=== PATIENT | female | born 1985 | race Two or more races ===

== ENCOUNTER → 2018-02-02 | Outpatient (CLI) | payer MEDICAID | END | disposition home or self-care (01) | LOC: Rad HDHVI 08:01 | PROVIDERS: ATTEND Internal Medicine | DX: R06.02 Shortness of breath (principal); R63.8 Other symptoms and signs concerning food and fluid intake | CPT/HCPCS: 93306 ==

== ENCOUNTER → 2018-03-23 | Outpatient (CLI) | payer MEDICAID ==
[~2018-03-23] VITALS: Ht 157.5 cm; Wt 120.2 kg
== END | disposition home or self-care (01) ==
LOC: Rad HDHVI 14:22
PROVIDERS: ATTEND Internal Medicine
DX: I10 Essential (primary) hypertension (principal); R63.8 Other symptoms and signs concerning food and fluid intake; R06.02 Shortness of breath
CPT/HCPCS: 78452; 93017; 96374; A9500

== ENCOUNTER 2021-01-15 09:10 | Emergency (ER) | payer BC, MEDICAID, OTHER ==
[~2021-01-15] VITALS: Ht 157.5 cm; Wt 122.5 kg
[2021-01-15 10:10] LABS: Basophils # (auto) 0.1 10 ^3/uL (0-0.2); Basophils % (auto) 0.9 % (0.0-2.0); Eosinophils # (auto) 0 10 ^3/uL (0-0.8); Eosinophils % (auto) 0.5 % (0.0-7.0); Hematocrit 40.5 % (36.0-46.0); Hemoglobin 13.6 g/dL (12.2-16.2); Lymphocytes # (auto) 2.6 10 ^3/uL (0.4-5.4); Lymphocytes % (auto) 29.9 % (10.0-50.0); Mean Corpuscular Hemoglobin 30.2 pg (28.0-32.0); Mean Corpuscular Hgb Conc. 33.5 g/dL (32.0-36.0); Monocytes # (auto) 0.6 10 ^3/uL (0-1.3); Monocytes % (auto) 7.3 % (0.0-12.0); Neutrophils # (auto) 5.4 10 ^3/uL (1.6-8.6); Neutrophils % (auto) 61.4 % (37.0-80.0); Nucleated Red Blood Cells % 0.1 %; Red Cell Distribution Width 15.3 % (11.8-14.3); White Blood Cell 8.8 10^3/uL (4.4-10.8)
[2021-01-15 10:27] LABS: Albumin 3.1 g/dL (3.4-5.0); Anion Gap 5 (5-15); Blood Urea Nitrogen 15 mg/dL (7-18); Calcium 8.9 mg/dL (8.5-10.1); Carbon Dioxide 25 mmol/L (21-32); Chloride 111 mmol/L (98-107); Glucose 99 mg/dL (74-106); Potassium 4.5 mmol/L (3.5-5.1); Sodium 141 mmol/L (136-145)
[2021-01-15 10:28] LABS: Urine Bacteria NONE SEEN /hpf (None Seen); Urine Blood Negative /uL (Negative); Urine Specific Gravity 1.023 (1.001-1.035); Urine WBC 1 /hpf (0 - 5)
[2021-01-15 10:33] LABS: Alanine Aminotransferase 27 U/L (13-56); Alkaline Phosphatase 70 U/L (45-117); Aspartate Aminotransferase 13 U/L (15-37); BUN/Creatinine Ratio 15.8; Bilirubin, Total 0.2 mg/dL (0.2-1.0); GFR African American 87 mL/min; GFR Non-African American 72 mL/min
[2021-01-15 11:42] VITALS: BP 138/92
== END 2021-01-15 11:47 | disposition home or self-care (01) ==
LOC: ER 09:10
DX: E03.9 Hypothyroidism, unspecified (principal); F41.9 Anxiety disorder, unspecified; R00.2 Palpitations
CPT/HCPCS: 36415; 71045; 80053; 81001; 84443; 84484; 85025; 93005

== ENCOUNTER 2025-03-10 08:17 | Inpatient (IN) | payer BC ==
[~2025-03-10] VITALS: Ht 157.5 cm; Wt 150.5 kg
--- NOTE | 2025-03-10 08:46 | ED.PDOC ---
GI ASSESSMENT HPI Comments This is a 40 year old female presenting to the ED with chief complaint of abdominal pain. Patient reports that she has been experiencing 4/10 LLQ abdominal pain since this morning. Patient reports that she has been on Zepbound. Patient denies any N/V/D, dizziness, fever, chills, dysuria, hematuria, or flank pain. Chief Complaint: Abdominal Pain Time Seen by MD: 08:45 Reviewed Notes: Nurses Notes, Medications, Allergies Allergies: Coded Allergies: NO KNOWN ALLERGIES (Unverified , 01/15/21) Information Source: Patient Mode of Arrival: Ambulatory Timing: Hours Duration: Since onset Prehospital treatment: None Quality: Sharp Vomitus: None Stool: Normal Severity: Moderate Recent: None Recent Hx of: None Pain Location: LLQ Modifying Factors: Nothing Associated sign and symptoms: Abdominal Pain Past Medical History PAST MEDICAL HISTORY: Thyroid Surgical History: BTL, Cholecystectomy, FURNITURE RENTAL CONSULTANT History: No Pertinent FURNITURE RENTAL CONSULTANT History Family History Family History: Reviewed,noncontributory to illness Social History Smoker: Non-Smoker Alcohol: Denies ETOH Use Drugs: Denies Drug Use Lives In: Home Constitutional: denies: chills, diaphoresis, fatigue, fever, malaise, sweats, weakness, others EENTM: denies: blurred vision, double vision, ear bleeding, ear discharge, ear drainage, ear pain, ear ringing, eye pain, eye redness, hearing loss, mouth pain, mouth swelling, nasal discharge, nose bleeding, nose congestion, nose pain, photophobia, tearing, throat pain, throat swelling, voice changes, others Respiratory: denies: cough, hemoptysis, orthopnea, SOB at rest, shortness of breath, SOB with excertion, stridor, wheezing, others Cardiovascular: denies: chest pain, dizzy spells, diaphoresis, Dyspnea on exertion, edema, irregular heart beat, left arm pain, lightheadedness, palpitations, PND, syncope, others Gastrointestinal: reports: abdominal pain; denies: abdomen distended, blood streaked bowels, constipated, diarrhea, dysphagia, difficulty swallowing, hematemesis, melena, nausea, poor appetite, poor fluid intake, rectal bleeding, rectal pain, vomiting, others Genitourinary: denies: abnormal vagina bleeding, burning, dyspareunia, dysuria, flank pain, frequency, hematuria, incontinence, pain, , vagina discharge, urgency, others Neurological: denies: dizziness, fainting, headache, left sided numbness, left sided weakness, numbness, paresthesia, pre-existing deficit, right sided numbness, right sided weakness, seizure, speech problems, tingling, tremors, weakness, others Musculoskeletal: denies: back pain, gout, joint pain, joint swelling, muscle pain, muscle stiffness, neck pain, others Integumetry: denies: bruises, change in color, change in hair/nails, dryness, laceration, lesions, lumps, rash, wounds, others Allergic/Immunocompromised: denies: Difficulty Healing, Frequent Infections, Hives, Itching, others Hematologic/Lymphatic: denies: anemia, blood clots, easy bleeding, easy bruising, swollen glands, others Endocrine: denies: excessive hunger, excessive sweating, excessive thirst, excessive urination, flushing, intolerance to cold, intolerance to heat, unexplained weight gain, unexplained weight loss, others Psychiatric: denies: anxiety, bipolar disorder, depression, hopeless, panic disorder, schizophrenia, sleepless, suicidal, others All Other Systems: Reviewed and Negative Physical Exam General Appearance: Moderate Distress HEENT: Normal ENT Inspection, Pharynx Normal, TMs Normal Neck: Full Range of Motion, Non-Tender, Normal, Normal Inspection Respiratory: Chest Non-Tender, Lungs Clear, No Accessory Muscle Use, No Respiratory Distress, Normal Breath Sounds Cardiovascular: No Edema, No JVD, No Murmur, No Gallop, Normal Peripheral Pulses, Regular Rate/Rhythm Breast Exam: Deferred Gastrointestinal: LLQ, No Organomegaly, No Pulsatile Mass, Normal Bowel Sounds, Soft, Tenderness Genitalia: Deferred Pelvic: Deferred Rectal: Deferred Extremities: No calf tenderness, Normal capillary refill, No pedal edema Musculoskeletal : Apperance: Normal Neurologic: Alert, spring encaser II-XII nml as Tested, Motor Weakness, Normal Affect, Normal Mood, No Sensory Deficits Cerebellar Function: Normal Reflexes: Normal Skin: Dry, Normal Color, Warm Lymphatic: No Adenopathy Was a procedure done? Was a procedure done?: No GI differential Dx Differential Diagnosis: Diverticular disease, Gastritis/PUD, Gastroenteritis, Electrolyte Imbalance, Food Poisoning X-Ray, Labs, Meds, VS Vital Signs Date Time Temp Pulse Resp B/P (MAP) Pulse Ox O2 Delivery O2 Flow Rate FiO2 03/10/25 08:19 98.4 112 18 140/102 98 98.4 Lab Test 03/10/25 11:06 03/10/25 08:54 Range/Units Urine Color Light-yellow Yellow Urine Clarity Clear Clear Urine pH 6.0 5.0-9.0 Urine Specific [place] 1.011 1.001-1.035 Urine Protein Negative Negative Urine Ketones Negative Negative Urine Blood Negative Negative /uL Urine Nitrite Negative Negative Urine Bilirubin Negative Negative Urine Urobilinogen Normal Negative mg/dL Urine Leukocyte Esterase Negative Negative /uL Urine RBC 1 0 - 4 /hpf Urine Microscopic WBC 1 0-5 /HPF Urine Squamous Epithelial Cells Few <5 /hpf Urine Bacteria Few H None Seen /hpf Urine Glucose Normal Normal mg/dL Urine Test Negative Negative White Blood Count 11.3 H 4.4-10.8 10^3/uL Red Blood Count 4.94 4.0-5.20 10^6/uL Hemoglobin 14.2 12.2-16.2 g/dL Hematocrit 43.2 36.0-46.0 % Mean Corpuscular Volume 87.4 80.0-100.0 fL Mean Corpuscular Hemoglobin 28.6 28.0-32.0 pg Mean Corpuscular Hemoglobin Concent 32.8 32.0-36.0 g/dL Red Cell Distribution Width 15.3 H 11.8-14.3 % Platelet Count 378 140-450 10^3/uL Mean Platelet Volume 8.3 6.9-10.8 fL Neutrophils (%) (Auto) 70.8 37.0-80.0 % Lymphocytes (%) (Auto) 21.2 10.0-50.0 % Monocytes (%) (Auto) 6.5 0.0-12.0 % Eosinophils (%) (Auto) 0.6 0.0-7.0 % Basophils (%) (Auto) 0.9 0.0-2.0 % Neutrophils # (Auto) 8.0 1.6-8.6 10 ^3/uL Lymphocytes # (Auto) 2.4 0.4-5.4 10 ^3/uL Monocytes # (Auto) 0.7 0-1.3 10 ^3/uL Eosinophils # (Auto) 0.1 0-0.8 10 ^3/uL Basophils # (Auto) 0.1 0-0.2 10 ^3/uL Nucleated Red Blood Cells 0.0 % Sodium Level 140 136-145 mmol/L Potassium Level 4.0 3.5-5.1 mmol/L Chloride Level 105 98-107 mmol/L Carbon Dioxide Level 27 20-31 mmol/L Anion Gap 8 5-15 Blood Urea Nitrogen 9 9-23 mg/dL Creatinine 0.95 0.550-1.02 mg/dL Glomerular Filtration Rate Calc 79 >90 mL/min BUN/Creatinine Ratio 9.5 L 10.0-20.0 Serum Glucose 102 74-106 mg/dL Calcium Level 8.9 8.7-10.4 mg/dL IV Hep-Lock was established Cat scan of the abdomen and pelvis shows: IMPRESSION: Limited evaluation without contrast. Diverticulitis of the distal descending colon. Hepatic steatosis, hepatomegaly. Nonobstructing left renal calculus. The patient was given Flagyl 500 mg IV piggyback The patient's CBC shows an elevated white blood cell count of 11.3 consistent with the acute diverticulitis The test is negative The urine test is negative creatinine infections The chemistry panel is within normal limits. The patient is being admitted at this time. Images Reviewed?: Images reviewed and evaluated by me Time of 1ST Reevaluation: 13:27 Reevaluation 1ST: Unchanged Patient Education/Counseling: Diagnosis, Treatment, Prognosis Family Education/Counseling: No Family Present SEPSIS Sepsis Screen Date sepsis recognized/suspect: Mar 10, 2025 Time Sepsis recognized/suspect: 821 Recent Procedure: No On Antibiotic Therapy: No Respiratory Rate >20: No Heart Rate >90: No Temp<36 C (96.8 F) or >38.3 C: No SBP <90 or MAP <65 mmHG: No New Acute Mental Status Change: No Is the patient on CPAP, BIPAP,: No Physician Orders Ct Ab Pel Wo Con-No Oral Or Iv (03/10/25 08:44) Metronidazole 500mg/100ml (Flagyl 500mg/ (03/10/25 13:15) Vital Signs Date Time Temp Pulse Resp B/P (MAP) Pulse Ox O2 Delivery O2 Flow Rate FiO2 03/10/25 08:19 98.4 112 18 140/102 98 98.4 Laboratory Tests Test 03/10/25 08:54 White Blood Count 11.3 10^3/uL (4.4-10.8) H Departure 1 Departure Time of Disposition: 13:27 Impression: Primary Impression: Intractable abdominal pain Additional Impression: Acute diverticulitis Disposition: ADMITTED INPATIENT Admit to: Med Surg Condition: Fair Critical Care Note Critical Care Time?: No Stability Stability form required: Yes Unstable for transfer: ED Physician Assesment (Clinical assesment) Heart Score Heart Score: Heart Score Response (Comments) Value History N/A 0 EKG N/A 0 Age N/A 0 Risk Factors N/A 0 Troponin N/A 0 Total 0 I personally scribed for CARLOS GALLEGO MD ([email or web address]) on 03/10/25 at 08:46. Electronically submitted by Shoaib Bettencourt ([email or web address]). CARLOS GALLEGO MD Mar 10, 2025 08:46
[2025-03-10 09:11] LABS: Hematocrit 43.2 % (36.0-46.0); Hemoglobin 14.2 g/dL (12.2-16.2); Mean Corpuscular Hemoglobin 28.6 pg (28.0-32.0); Mean Corpuscular Volume 87.4 fL (80.0-100.0); Nucleated Red Blood Cells % 0.0 %
[2025-03-10 09:17] LABS: Chloride 105 mmol/L (98-107); Potassium 4.0 mmol/L (3.5-5.1); Sodium 140 mmol/L (136-145)
[2025-03-10 09:18] LABS: Anion Gap 8 (5-15); Calcium 8.9 mg/dL (8.7-10.4); Carbon Dioxide 27 mmol/L (20-31)
[2025-03-10 09:23] LABS: BUN/Creatinine Ratio 9.5 (10.0-20.0); Blood Urea Nitrogen 9 mg/dL (9-23); Glucose 102 mg/dL (74-106)
[2025-03-10 11:42] LABS: Urine Protein, UAD Negative (Negative)
--- NOTE | 2025-03-10 12:23 | DVH ---
Indication: llq pain Technique: CT axial images of the abdomen and pelvis are obtained without contrast. Coronal and sagittal reformats were obtained. Radiation Dose Information: CTDI volume is 27 mGy. Dose-length product is 1626 mGy*cm Comparison: None FINDINGS: There is limited interpretation of the abdomen and pelvis without administration of intravenous contrast. Lung bases demonstrate atelectasis. No pleural effusion. Adrenal glands, spleen, pancreas unremarkable in shape. Hepatic steatosis. Hepatomegaly. Cholecystectomy. No hydronephrosis. Nonobstructing left renal calculus measuring 2 mm. Stomach partially distended. Small bowel loops are normal in caliber. Colonic diverticular disease. Bowel wall thickening with surrounding inflammatory stranding involving the distal descending colon. Normal appendix. Bladder partially distended. No free pelvic fluid. No inguinal lymphadenopathy. No aggressive osseous process. Moderate lumbar degenerative disc disease at L4-5 and L5-S1. Moderate lumbar facet hypertrophic changes IMPRESSION: Limited evaluation without contrast. Diverticulitis of the distal descending colon. Hepatic steatosis, hepatomegaly. Nonobstructing left renal calculus. Other findings as described.
[2025-03-10] MEDS: PANTOPRAZOLE 40 MG TAB PO ONE (14:15)
[2025-03-10] MEDS ORDERED: ONDANSETRON HCL 4 MG/2 ML VIAL IV PRN (14:15)
[2025-03-10] MEDS: KETOROLAC TROMETH 30 MG/ML 1ML VIAL IV PRN (16:59)
--- NOTE | 2025-03-10 17:03 | DVHHP2 ---
History of Present Illness Reason for Visit: Abdominal pain History of Present Illness 40-year-old female presents for evaluation of abdominal pain. Patient presents with a one day history of sharp left lower quadrant nonradiating abdominal pain with associated nausea. No vomiting. Denies fever or chills. No diarrhea. Past Medical History Hypothyroid Past Surgical History Cholecystectomy, Family History Noncontributory Smoke: No ALCOHOL: none Drugs: None Lives: with Family Review of Systems Review of Systems Review of systems are currently negative otherwise addressed in HPI. Allergies: Coded Allergies: NO KNOWN ALLERGIES (Unverified , 01/15/21) Medications Current Medications Medications Dose Ordered Sig/Hao Route Start Time Stop Time Status Last Admin Dose Admin Ceftriaxone Sodium 50 ml @ 100 mls/hr DAILY@09 IV 03/11/25 09:00 Pantoprazole Sodium 40 mg DAILY@0600 PO 03/11/25 06:00 Ketorolac Tromethamine 15 mg Q6HPRN PRN IV 03/10/25 14:15 03/15/25 14:14 Acetaminophen/ Hydrocodone Bitart 1 tab Q4HP PRN PO 03/10/25 14:15 Ondansetron HCl 4 mg Q4HP PRN IV 03/10/25 14:15 Acetaminophen 650 mg Q6HP PRN PO 03/10/25 14:15 Exam Vital Signs Vital Signs Date Time Temp Pulse Resp B/P (MAP) Pulse Ox O2 Delivery O2 Flow Rate FiO2 03/10/25 14:02 119 03/10/25 14:02 18 144/94 (111) 99 03/10/25 08:19 98.4 98.4 Exam Gen: 40-year-old female in mild distress Skin: Warm, dry, normal color and texture, no rash. HEENT: Normocephalic atraumatic, mucous membranes moist and pink. Neck: Cervical and supraclavicular nodes normal without enlargement, trachea is midline, thyroid gland is normal without masses. Pulmonary: Clear to auscultation and percussion bilaterally. Cardiac: Regular rate and rhythm. No murmur Abdomen: Soft, left lower quadrant tenderness, nondistended, bowel sounds present all 4 quadrants, no guarding, no rigidity, no organomegaly. Extremities: No cyanosis, clubbing, no edema Neuro: Cranial nerves II through XII grossly intact, normal affect and speech, no focal motor deficits. Labs/Xrays ORDERING PHYSICIAN: CARLOS GALLEGO MD PROCEDURE(s): ABPL - CT AB PEL WO CON-NO ORAL OR IV REASON: llq pain ORDER NUMBER(s): [id number], ACCESSION NUMBER(s): [id number] Indication: llq pain Technique: CT axial images of the abdomen and pelvis are obtained without contrast. Coronal and sagittal reformats were obtained. Radiation Dose Information: CTDI volume is 27 mGy. Dose-length product is 1626 mGy*cm Comparison: None FINDINGS: There is limited interpretation of the abdomen and pelvis without administration of intravenous contrast. Lung bases demonstrate atelectasis. No pleural effusion. Adrenal glands, spleen, pancreas unremarkable in shape. Hepatic steatosis. Hepatomegaly. Cholecystectomy. No hydronephrosis. Nonobstructing left renal calculus measuring 2 mm. Stomach partially distended. Small bowel loops are normal in caliber. Colonic diverticular disease. Bowel wall thickening with surrounding inflammatory stranding involving the distal descending colon. Normal appendix. Bladder partially distended. No free pelvic fluid. No inguinal lymphadenopathy. No aggressive osseous process. Moderate lumbar degenerative disc disease at L4-5 and L5-S1. Moderate lumbar facet hypertrophic changes IMPRESSION: Limited evaluation without contrast. Diverticulitis of the distal descending colon. Hepatic steatosis, hepatomegaly. Nonobstructing left renal calculus. Other findings as described. Labs Test 03/10/25 11:06 03/10/25 08:54 Range/Units Urine Color Light-yellow Yellow Urine Clarity Clear Clear Urine pH 6.0 5.0-9.0 Urine Specific [place] 1.011 1.001-1.035 Urine Protein Negative Negative Urine Ketones Negative Negative Urine Blood Negative Negative /uL Urine Nitrite Negative Negative Urine Bilirubin Negative Negative Urine Urobilinogen Normal Negative mg/dL Urine Leukocyte Esterase Negative Negative /uL Urine RBC 1 0 - 4 /hpf Urine Microscopic WBC 1 0-5 /HPF Urine Squamous Epithelial Cells Few <5 /hpf Urine Bacteria Few H None Seen /hpf Urine Glucose Normal Normal mg/dL Urine Test Negative Negative White Blood Count 11.3 H 4.4-10.8 10^3/uL Red Blood Count 4.94 4.0-5.20 10^6/uL Hemoglobin 14.2 12.2-16.2 g/dL Hematocrit 43.2 36.0-46.0 % Mean Corpuscular Volume 87.4 80.0-100.0 fL Mean Corpuscular Hemoglobin 28.6 28.0-32.0 pg Mean Corpuscular Hemoglobin Concent 32.8 32.0-36.0 g/dL Red Cell Distribution Width 15.3 H 11.8-14.3 % Platelet Count 378 140-450 10^3/uL Mean Platelet Volume 8.3 6.9-10.8 fL Neutrophils (%) (Auto) 70.8 37.0-80.0 % Lymphocytes (%) (Auto) 21.2 10.0-50.0 % Monocytes (%) (Auto) 6.5 0.0-12.0 % Eosinophils (%) (Auto) 0.6 0.0-7.0 % Basophils (%) (Auto) 0.9 0.0-2.0 % Neutrophils # (Auto) 8.0 1.6-8.6 10 ^3/uL Lymphocytes # (Auto) 2.4 0.4-5.4 10 ^3/uL Monocytes # (Auto) 0.7 0-1.3 10 ^3/uL Eosinophils # (Auto) 0.1 0-0.8 10 ^3/uL Basophils # (Auto) 0.1 0-0.2 10 ^3/uL Nucleated Red Blood Cells 0.0 % Sodium Level 140 136-145 mmol/L Potassium Level 4.0 3.5-5.1 mmol/L Chloride Level 105 98-107 mmol/L Carbon Dioxide Level 27 20-31 mmol/L Anion Gap 8 5-15 Blood Urea Nitrogen 9 9-23 mg/dL Creatinine 0.95 0.550-1.02 mg/dL Glomerular Filtration Rate Calc 79 >90 mL/min BUN/Creatinine Ratio 9.5 L 10.0-20.0 Serum Glucose 102 74-106 mg/dL Calcium Level 8.9 8.7-10.4 mg/dL SEPSIS Sepsis Screen Date sepsis recognized/suspect: Mar 10, 2025 Time Sepsis recognized/suspect: 821 Recent Procedure: No On Antibiotic Therapy: No Respiratory Rate >20: No Heart Rate >90: No Temp<36 C (96.8 F) or >38.3 C: No SBP <90 or MAP <65 mmHG: No New Acute Mental Status Change: No Is the patient on CPAP, BIPAP,: No Physician Orders Blood Culture (03/10/25 13:55) * Gi Dvh Machine Designer (03/10/25 14:05) Ceftriaxone 1gm/50ml (Rocephin) (03/11/25 09:00) Basic Metabolic Panel (03/11/25 04:00) Pantoprazole Tablet (Protonix Tablet) (03/11/25 06:00) Ketorolac Injection (Toradol Injection) (03/10/25 14:15) Admit (03/10/25 14:05) Hydrocodone-Acet 5/325mg Tab ([place] 5/32 (03/10/25 14:15) Ondansetron Hcl (Zofran) (03/10/25 14:15) Complete Blood Count (03/11/25 04:00) Condition: Stable (03/10/25 14:05) Acetaminophen Tablet (Tylenol Tablet) (03/10/25 14:15) Clear Liq Diet (03/10/25 Dinner) Bedrest With Bathroom Privileg (03/10/25 14:05) Metronidazole Ivpb Flagyl (03/10/25 22:00) Vital Signs Date Time Temp Pulse Resp B/P (MAP) Pulse Ox O2 Delivery O2 Flow Rate FiO2 03/10/25 14:02 119 03/10/25 14:02 119 18 144/94 (111) 99 Laboratory Tests Test 03/10/25 08:54 White Blood Count 11.3 10^3/uL (4.4-10.8) H Medications Medications Dose Ordered Sig/Hao Route Start Time Stop Time Status Last Admin Dose Admin Metronidazole 100 ml @ 100 mls/hr ONCE ONCE IV 03/10/25 13:15 03/10/25 14:14 DC 03/10/25 14:05 100 MLS/HR Assessment/Plan Assessment/Plan Assessment Acute diverticulitis Acute abdominal pain Plan Admit the patient to [facility] to the hospitalist GI consult Clear liquid diet Pain management Rocephin/Flagyl Resume home medications Continue treatment per orders. Plan discussed with: Patient My Orders Orders - ARNOLDO MILLER Procedure Category Date Status Time * Gi D[employer] Machine Designer CONS 03/10/25 Transmitted 14:05 Ceftriaxone 1gm/50ml PHA 03/11/25 In Process (Rocephin) 09:00 Basic Metabolic Panel LAB 03/11/25 Verified 04:00 Pantoprazole Tablet PHA 03/11/25 In Process (Protonix Tablet) 06:00 Ketorolac Injection PHA 03/10/25 In Process (Toradol Injection) 14:15 Admit ADMIT 03/10/25 Transmitted 14:05 Hydrocodone-Acet PHA 03/10/25 In Process 5/325mg Tab (Topock 14:15 Ondansetron Hcl PHA 03/10/25 In Process (Zofran) 14:15 Complete Blood Count LAB 03/11/25 Verified 04:00 Condition: Stable JACKELYN 03/10/25 In Process 14:05 Acetaminophen Tablet PHA 03/10/25 In Process (Tylenol Tablet) 14:15 Clear Liq Diet DIET 03/10/25 Transmitted Dinner Bedrest With Bathroom JACKELYN 03/10/25 In Process Privileg 14:05 Metronidazole Ivpb PHA 03/10/25 Verified Flagyl 22:00 Date of Service: Mar 10, 2025 Billing Provider: ARNOLDO MILLER Common Visit Codes: [id number] INP/OBS CARE (MOD) ARNOLDO MILLER Mar 10, 2025 17:03
[2025-03-10 17:17] VITALS: PULSE 118; RESP 18; O2SAT 98
[2025-03-10 17:25] VITALS: BP 135/77; PULSE 123; RESP 20; TEMP 100.7; O2SAT 99
[2025-03-10] MEDS: HYDROcodone-ACET 5/325MG TAB PO PRN (18:15)
[2025-03-10 20:12] VITALS: PULSE 110; RESP 16
[2025-03-10 20:33] VITALS: BP 134/87; PULSE 110; RESP 18; TEMP 98.9; O2SAT 100
[2025-03-10] MEDS: KETOROLAC TROMETH 30 MG/ML 1ML VIAL IV ONE (20:36)
[2025-03-10] MEDS ORDERED: LEVO-849 PO (21:51)
[2025-03-10] MEDS ORDERED: TIRZ5INJ2 SC (21:51)
[2025-03-11 01:00] VITALS: BP 146/78; PULSE 107; RESP 18; TEMP 99.2; O2SAT 95
[2025-03-11 04:39] LABS: Hematocrit 42.4 % (36.0-46.0); Hemoglobin 13.8 g/dL (12.2-16.2); Mean Corpuscular Hemoglobin 28.6 pg (28.0-32.0); Mean Corpuscular Volume 88.1 fL (80.0-100.0); Nucleated Red Blood Cells % 0.2 %
[2025-03-11 04:49] LABS: Anion Gap 9 (5-15); Carbon Dioxide 29 mmol/L (20-31); Chloride 102 mmol/L (98-107); Potassium 3.9 mmol/L (3.5-5.1); Sodium 140 mmol/L (136-145)
[2025-03-11 04:50] LABS: Calcium 8.8 mg/dL (8.7-10.4)
[2025-03-11 04:55] LABS: BUN/Creatinine Ratio 7.8 (10.0-20.0)
[2025-03-11 05:00] VITALS: BP 122/63; PULSE 104; RESP 16; TEMP 98.7; O2SAT 98
[2025-03-11 05:09] LABS: Blood Urea Nitrogen 8 mg/dL (9-23); Glucose 114 mg/dL (74-106)
[2025-03-11] MEDS: PANTOPRAZOLE 40 MG TAB PO SCH (06:10)
[2025-03-11] MEDS: LEVOTHYROXINE SODIUM 50 MCG TAB PO SCH (06:10)
[2025-03-11 08:00] VITALS: BP 137/87; PULSE 112; RESP 20; TEMP 97.6; O2SAT 96
[2025-03-11 08:09] LABS: Alanine Aminotransferase 20.0 U/L (7-40); Albumin 3.9 g/dL (3.2-4.8); Alkaline Phosphatase 90.0 U/L (46-116); Cholesterol 143.0 mg/dL (< 200); HDL Cholesterol 46.0 mg/dL (40-59); Total Protein 6.4 g/dL (5.7-8.2); Triglycerides 79.0 mg/dL (< 150)
[2025-03-11 08:10] LABS: Bilirubin, Direct 0.4 mg/dL (<0.3); Bilirubin, Total 1.2 mg/dL (0.2-1.0)
[2025-03-11 09:50] LABS: Opiate Scree,Urine Neg (NEGATIVE)
[2025-03-11 09:53] LABS: Amphetamine Screen, Urine Neg (NEGATIVE); Barbiturate Scree,Urine Neg (NEGATIVE); Benzodiazephine Screen, Urine Neg (NEGATIVE); Cannabinoid Screen, Urine Neg (NEGATIVE); Cocaine Screen, Urine Neg (NEGATIVE); Phencyclidine Screen, Urine Neg (NEGATIVE)
[2025-03-11 10:48] LABS: COVID19 ANTIGEN SOFIA FIA NEGATIVE (NEGATIVE)
[2025-03-11] MEDS: CYANOCOBALAMIN (B-12) 1000 MCG/1 ML VIAL IM ONE (12:00)
[2025-03-11] MEDS: ERGOCALCIFEROL 50,000 UNIT(1.25MG) CAP PO SCH (12:59)
[2025-03-11 13:00] VITALS: BP 159/85; PULSE 113; RESP 20; TEMP 99.6; O2SAT 95
--- NOTE | 2025-03-11 15:36 | DVHPNRES ---
Progress Note Date Seen: Mar 11, 2025 Resident Creating Document: ROBERT GALLARDO RESIDENT Has the PT tested + for MRSA If YES, has PT been informed?: No Medical Necessity Reason Pt with a Central, PICC or Fol: No Subjective Review of Systems Lindsey Keller is a 40-year-old female patient with past medical history of hypothyroidism and obesity. The patient came to the [facility] with chief complaint of 1 day of abdominal pain, 4/10 localized on the LLQ, sharp-like, no irradiation, with no alleviating or aggravating factors, associated with nausea. The patient reports this is first time episode. The patient report her abdominal pain worsen to 8/10 in a couple of hours, this prompted her visit to the ED. The patient denies fever, chills, vomit, diarrhea or constipation. In the ED, the CT abdomen showed: Diverticulitis of the distal descending colon. Hepatic steatosis, hepatomegaly. No hydronephrosis. Nonobstructing left renal calculus measuring 2 mm. The WBC were: 11.3. The patient was admitted for further diagnosed and management. Past Medical History: Hypothyroidism Past Surgical History: Cholecystectomy, Family History: Noncontributory Social History: Smoke: No. Alcohol: none. Drugs: None. Lives: with [facility] Hospital course: On 03/11/25, the patient was evaluated an examined at the bedside. Patient's VS, labs and chart were reviewed. WBC still elevated. The patient reports her abdominal pain has improved to 3/10 after analgesia, nausea has resolved. The patient continues with IV antibiotics: Sozyn and metronidazole. Ceftriaxone was stopped. A GI consult was placed. The patient has asymptomatic 2mm renal calculi, non obstructive, at this moment will be only monitoring. The patient continues tolerating well clear liquid diet. We will continue monitoring the progress of this patient. ROS: Constitutional: denies: chills, diaphoresis, fatigue, fever, malaise, sweats, weakness, others EENTM: denies: blurred vision, double vision, ear bleeding, ear discharge, ear drainage, ear pain, ear ringing, eye pain, eye redness, hearing loss, mouth pain, mouth swelling, nasal discharge, nose bleeding, nose congestion, nose pain, photophobia, tearing, throat pain, throat swelling, voice changes, others Respiratory: denies: cough, hemoptysis, orthopnea, SOB at rest, shortness of breath, SOB with excertion, stridor, wheezing, others Cardiovascular: denies: chest pain, dizzy spells, diaphoresis, Dyspnea on exertion, edema, irregular heart beat, left arm pain, lightheadedness, palpitations, PND, syncope, others Gastrointestinal: reports: Improvement, no new nausea, vomiting or diarrhea; Abdominal pain 07/05 Genitourinary: denies: burning, dysuria, flank pain, frequency, hematuria, incontinence, penile discharge, penile sore, pain, testicle pain, testicle swelling, urgency, others Neurological: reports: No headache; denies: dizziness, fainting, left sided numbness, left sided weakness, numbness, paresthesia, pre-existing deficit, right sided numbness, right sided weakness, seizure, speech problems, tingling, tremors, weakness, others Musculoskeletal: denies: back pain, gout, joint pain, joint swelling, muscle pain, muscle stiffness, neck pain, others Integumetry: denies: bruises, change in color, change in hair/nails, dryness, laceration, lesions, lumps, rash, wounds, others Allergic/Immunocompromised: denies: Difficulty Healing, Frequent Infections, Hives, Itching, others Hematologic/Lymphatic: denies: anemia, blood clots, easy bleeding, easy bruising, swollen glands, others Endocrine: denies: excessive hunger, excessive sweating, excessive thirst, excessive urination, flushing, intolerance to cold, intolerance to heat, unexplained weight gain, unexplained weight loss, others Psychiatric: denies: anxiety, bipolar disorder, depression, hopeless, panic disorder, schizophrenia, sleepless, suicidal, others All Other Systems: Reviewed and Negative Objective vital signs Vital Sign Date Time Temp Pulse Resp B/P (MAP) Pulse Ox O2 Delivery O2 Flow Rate FiO2 03/11/25 08:00 Room Air* 0 21 03/11/25 08:00 97.6 112 20 137/87 (104) 96 97.6 Total Intake and Output 03/10/25 03/10/25 03/11/25 15:00 23:00 07:00 Intake Total 100 ml 120 ml Balance 100 ml 120 ml medications Current Medications Medications Dose Ordered Sig/Hao Route Start Time Stop Time Status Last Admin Dose Admin Ceftriaxone Sodium 50 ml @ 100 mls/hr DAILY@09 IV 03/11/25 09:00 03/11/25 08:32 100 MLS/HR Pantoprazole Sodium 40 mg DAILY@0600 PO 03/11/25 06:00 03/11/25 06:10 40 MG Ketorolac Tromethamine 15 mg Q6HPRN PRN IV 03/10/25 14:15 03/15/25 14:14 03/11/25 12:36 15 MG Acetaminophen/ Hydrocodone Bitart 1 tab Q4HP PRN PO 03/10/25 14:15 03/11/25 08:37 1 TAB Ondansetron HCl 4 mg Q4HP PRN IV 03/10/25 14:15 Acetaminophen 650 mg Q6HP PRN PO 03/10/25 14:15 Metronidazole 100 ml @ 100 mls/hr Q8HR IV 03/10/25 22:00 03/11/25 13:24 100 MLS/HR Levothyroxine Sodium 175 mcg QAM@0600 PO 03/11/25 06:00 03/11/25 06:10 175 MCG Ergocalciferol 50,000 unit Q7D PO 03/11/25 11:15 03/11/25 12:59 50,000 UNIT Cyanocobalamin 1,000 mcg DAILY PO 03/12/25 10:00 Examination Gen: In mild distress, obesity. Skin: Warm, dry, normal color and texture, no rash. HEENT: Normocephalic atraumatic, mucous membranes moist and pink. Neck: Cervical and supraclavicular nodes normal without enlargement, trachea is midline, thyroid gland is normal without masses. Pulmonary: Clear to auscultation and percussion bilaterally. Cardiac: Regular rate and rhythm. No murmur Abdomen: Protuberant abdomen, soft, there is tenderness to deep palpation on the left lower quadrant tenderness, nondistended, bowel sounds present all 4 quadrants, no guarding, no rigidity, no organomegaly. Extremities: No cyanosis, clubbing, no edema Neuro: Cranial nerves II through XII grossly intact, normal affect and speech, no focal motor deficits. laboratory and microbiology Laboratory Tests 03/11/25 03:57 Test 03/11/25 03:57 Range/Units Serum Glucose 114 H 74-106 mg/dL Microbiology Date/Time Source Procedure Growth Status 03/10/25 14:25 Blood Blood Culture - Preliminary Resulted Problem List/Assessment/Plan Problem List/Assessment/Plan #Sepsis due to acute diverticulitis #Acute intractable abdominal pain, due to diverticulitis #Acute Diverticulitis of the distal descending colon. #Acute Diverticular disease of the distal descending colon. NPO Stopped: Rocephin 1g IV qd Started: Zocyn continue Flagyl 500mg/100ml IV Q8h IV fluids GI consult. Lactic acid #Asymptomatic Nephrolothiasis Nonobstructing left renal calculus measuring 2 mm. conservative management only. IV fluids. #Chronic Hypothyroidism. TSH: 6.51 Levothyroxine 175mcg po qd (morning, only with water) #Hepatic steatosis with hepatomegaly. LFT's HbA1c: 5.3 DVT prophylaxis: Lovenox 40 subcutaneous Diet: NPO Goals of care discussed with the patient for more than 35 minutes Code Status: Full code PCP: Dr. Aubree Byers. Case discussed with Dr. Vance Plan discussed with: Patient My Orders My Orders Orders - ROBERT GALLARDO RESIDENT Procedure Category Date Status Time Stool Occult Blood LAB 03/11/25 Logged 06:43 Stool Wbc LAB 03/11/25 Logged 06:43 Ergocalciferol PHA 03/11/25 In Process (Vitamin D 50,000 11:15 Stool Bacterial BRUCE 03/11/25 Uncollected Culture 11:36 * Gi D[facility] Interactive [employer]ducer CONS 03/11/25 Transmitted 11:36 Date of Service: Mar 11, 2025 Billing Provider: JEN VANCE MD Common Visit Codes: [id number] INP/OBS CARE(HIGH) ROBERT GALLARDO RESIDENT Mar 11, 2025 15:36
[2025-03-11 17:00] VITALS: BP 146/93; PULSE 117; RESP 18; TEMP 98.9; O2SAT 95
[2025-03-11] MEDS: SODIUM CHLORIDE 0.9% 1,000 ML IV SCH (18:46)
[2025-03-11] MEDS: PIPERACILLIN-TAZOB 3.375GM 100 ML IV ONE (18:46)
[2025-03-11 19:23] LABS: Hematocrit 42.9 % (36.0-46.0); Hemoglobin 14.4 g/dL (12.2-16.2); Mean Corpuscular Hemoglobin 29.2 pg (28.0-32.0); Mean Corpuscular Volume 87.1 fL (80.0-100.0); Nucleated Red Blood Cells % 0.0 %
[2025-03-11] MEDS: ACETAMINOPHEN 325 MG TAB PO PRN (19:56)
--- NOTE | 2025-03-11 20:28 | DVHINCON2 ---
Date of service: Mar 11, [address] BONILLA Reason for Consultation ABDOMINAL PAIN History of Present Illness THIS 40-YEAR-OLD FEMALE PRESENTED TO THE EMERGENCY ROOM WITH THE COMPLAINTS OF ABDOMINAL PAIN IN THE LEFT LOWER QUADRANT AND BOTH LOWER QUADRANTS MORE IN THE LEFT She denied any unusual food ingestion no history of any travel no history of any trauma No history of any diverticulitis gallbladder disease or unusual food ingestion in the past Patient had a CAT scan done in the ER which showed diverticulitis Patient also has a small renal stone nonobstructive Past Medical History Thyroid problems Past Surgical History Cholecystectomy Family History: Diabetes mellitus G8 MOTHER Family History Noncontributory Social History Denies smoking or drinking Allergies: Coded Allergies: NO KNOWN ALLERGIES (Unverified , 01/15/21) Home Meds Reported Medications Tirzepatide (Zepbound) 5 Mg/0.5 Ml Inj, 5 MG SC DAILY, INJ 03/10/25 Levothyroxine Sodium (SYNTHROID TABLET) 100 Mcg Tb, 175 MCG PO DAILY, TAB 03/10/25 Current Medications Current Medications Medications (Trade) Dose Ordered Sig/Hao Route PRN Reason Start Time Stop Time Status Last Admin Ceftriaxone Sodium 50 ml @ 100 mls/hr DAILY@09 IV 03/11/25 09:00 03/11/25 17:31 DC 03/11/25 08:32 Pantoprazole Sodium (Protonix Tablet) 40 mg DAILY@0600 PO 03/11/25 06:00 03/11/25 16:31 DC 03/11/25 06:10 Metronidazole 100 ml @ 100 mls/hr Q8HR IV 03/10/25 22:00 03/11/25 13:24 Levothyroxine Sodium (Synthroid Tablet) 175 mcg QAM@0600 PO 03/11/25 06:00 03/11/25 06:10 Ergocalciferol (Vitamin D 50,000 Unit) 50,000 unit Q7D PO 03/11/25 11:15 03/11/25 12:59 Cyanocobalamin (Vitamin B-12) 1,000 mcg DAILY PO 03/12/25 10:00 Enoxaparin Sodium (Lovenox) 40 mg DAILY SC 03/12/25 10:00 Pantoprazole Sodium (Protonix Tablet) 40 mg DAILY@0600 PO 03/12/25 06:00 Sodium Chloride 1,000 ml @ 125 mls/hr Q8H IV 03/11/25 17:30 03/11/25 18:46 Piperacillin Sod/ Tazobactam Sod 100 ml @ 25 mls/hr Q8H IV 03/11/25 23:00 Review of Systems Noncontributory Vital Signs Vital Signs Date Time Temp Pulse Resp B/P (MAP) Pulse Ox O2 Delivery O2 Flow Rate FiO2 03/11/25 19:56 100.5 03/11/25 17:00 117 18 146/93 (110) 95 03/11/25 08:00 Room Air* 0 21 Physical Exam Moderately built and nourished female slightly on the heavy side no acute distress but uncomfortable from the pain Vital stable Lungs are clear Abdomen obese tenderness in the left lower quadrant and also mildly in the supr apubic and right lower no rigidity no guarding Extremities no edema Labs/Diagnostic Data Labs Test 03/11/25 18:44 03/11/25 10:11 03/11/25 08:47 03/11/25 03:57 Range/Units White Blood Count 14.7 H 4.4-10.8 10^3/uL Red Blood Count 4.93 4.0-5.20 10^6/uL Hemoglobin 14.4 12.2-16.2 g/dL Hematocrit 42.9 36.0-46.0 % Mean Corpuscular Volume 87.1 80.0-100.0 fL Mean Corpuscular Hemoglobin 29.2 28.0-32.0 pg Mean Corpuscular Hemoglobin Concent 33.5 32.0-36.0 g/dL Red Cell Distribution Width 15.2 H 11.8-14.3 % Platelet Count 379 140-450 10^3/uL Mean Platelet Volume 8.4 6.9-10.8 fL Neutrophils (%) (Auto) 75.7 37.0-80.0 % Lymphocytes (%) (Auto) 15.7 10.0-50.0 % Monocytes (%) (Auto) 7.9 0.0-12.0 % Eosinophils (%) (Auto) 0.3 0.0-7.0 % Basophils (%) (Auto) 0.4 0.0-2.0 % Neutrophils # (Auto) 11.1 H 1.6-8.6 10 ^3/uL Lymphocytes # (Auto) 2.3 0.4-5.4 10 ^3/uL Monocytes # (Auto) 1.2 0-1.3 10 ^3/uL Eosinophils # (Auto) 0 0-0.8 10 ^3/uL Basophils # (Auto) 0.1 0-0.2 10 ^3/uL Nucleated Red Blood Cells 0.0 % Lactic Acid Level 0.9 0.4-2.0 mmol/L Influenza Type A Antigen Negative Negative Influenza Type B Antigen Negative Negative SARS-CoV-2 Antigen (Rapid) Negative NEGATIVE Urine Opiates Screen Neg NEGATIVE Urine Fentanyl Screen Neg NEGATIVE Urine Barbiturates Screen Neg NEGATIVE Urine Phencyclidine Screen Neg NEGATIVE Urine Amphetamines Screen Neg NEGATIVE Urine Benzodiazepines Screen Neg NEGATIVE Urine Cocaine Screen Neg NEGATIVE Urine Cannabinoids Screen Neg NEGATIVE Sodium Level 140 136-145 mmol/L Potassium Level 3.9 3.5-5.1 mmol/L Chloride Level 102 98-107 mmol/L Carbon Dioxide Level 29 20-31 mmol/L Anion Gap 9 5-15 Blood Urea Nitrogen 8 L 9-23 mg/dL Creatinine 1.02 0.550-1.02 mg/dL Glomerular Filtration Rate Calc 72 >90 mL/min BUN/Creatinine Ratio 7.8 L 10.0-20.0 Serum Glucose 114 H 74-106 mg/dL Hemoglobin A1c 5.3 <5.7 % A1C Calcium Level 8.8 8.7-10.4 mg/dL Total Bilirubin 1.2 H 0.2-1.0 mg/dL Direct Bilirubin 0.4 H <0.3 mg/dL Aspartate Amino Transferase (AST) 13 13-40 U/L Alanine Aminotransferase (ALT) 20 7-40 U/L Alkaline Phosphatase 90 46-116 U/L Total Protein 6.4 5.7-8.2 g/dL Albumin 3.9 3.2-4.8 g/dL Triglycerides Level 79 < 150 mg/dL Cholesterol Level 143 < 200 mg/dL LDL Cholesterol 83 < 100 mg/dL HDL Cholesterol 46 40-59 mg/dL Vitamin B12 Level 299 211-911 pg/mL Vitamin D 25-Hydroxy 21.6 L 30.0-100 ng/mL Thyroid Stimulating Hormone (TSH) 6.51 H 0.55-4.78 uIU/mL Test 03/10/25 11:06 Range/Units Urine Color Light-yellow Yellow Urine Clarity Clear Clear Urine pH 6.0 5.0-9.0 Urine Specific Spruce 1.011 1.001-1.035 Urine Protein Negative Negative Urine Ketones Negative Negative Urine Blood Negative Negative /uL Urine Nitrite Negative Negative Urine Bilirubin Negative Negative Urine Urobilinogen Normal Negative mg/dL Urine Leukocyte Esterase Negative Negative /uL Urine RBC 1 0 - 4 /hpf Urine Microscopic WBC 1 0-5 /HPF Urine Squamous Epithelial Cells Few <5 /hpf Urine Bacteria Few H None Seen /hpf Urine Glucose Normal Normal mg/dL Urine Test Negative Negative Microbiology Date/Time Source Procedure Growth Status 03/10/25 14:25 Blood Blood Culture - Preliminary Resulted Assessment Patient with complaints of abdominal pain in left lower quadrant with no vomiting no diarrhea. Physical examination obese in moderate distress from the pain the stent definite tenderness in the both lower quadrants especially left lower quadrant No rigidity no guarding CT scan showed acute diverticulitis as well as mild small stone in the ureter nonobstructive Clinical impression acute diverticulitis Plan/Recommendation We will recommend to treat with the antibiotics clear liquids and slowly advance the diet as possible when better and further workup and treatment depending upon the findings. Thank you Dr. edvin Moya discussed with: Patient WOLFGANG CAMILO MD Mar 11, 2025 20:28
[2025-03-11 21:00] VITALS: BP 129/84; PULSE 121; RESP 20; TEMP 98.1; O2SAT 97
[2025-03-11] MEDS: HYDROmorphone HCL 2 MG/ML VL/or syr IV PRN (23:35)
[2025-03-12] VITALS (9 sets, daily range): BP systolic 105–139; BP diastolic 67–89; PULSE 88–117; RESP 17–20; TEMP 97.6–100.1; O2SAT 90–98
[2025-03-12] MEDS: PIPERACILLIN-TAZOB 3.375GM 100 ML IV SCH (00:39)
[2025-03-12] MEDS: PANTOPRAZOLE 40 MG TAB PO SCH (05:07)
[2025-03-12 06:32] LABS: Anion Gap 10 (5-15); Carbon Dioxide 28 mmol/L (20-31); Chloride 102 mmol/L (98-107); Potassium 3.7 mmol/L (3.5-5.1); Sodium 140 mmol/L (136-145)
[2025-03-12 06:33] LABS: Calcium 8.7 mg/dL (8.7-10.4)
[2025-03-12 06:34] LABS: Hematocrit 38.6 % (36.0-46.0); Hemoglobin 12.7 g/dL (12.2-16.2); Mean Corpuscular Hemoglobin 28.7 pg (28.0-32.0); Mean Corpuscular Volume 87.0 fL (80.0-100.0); Nucleated Red Blood Cells % 0.1 %
[2025-03-12 06:38] LABS: BUN/Creatinine Ratio 5.7 (10.0-20.0); Glucose 100 mg/dL (74-106); Magnesium 2.2 mg/dL (1.6-2.6)
[2025-03-12 06:39] LABS: Blood Urea Nitrogen 6 mg/dL (9-23)
[2025-03-12] MEDS: CYANOCOBALAMIN 500 MCG TAB PO SCH (10:00)
[2025-03-12] MEDS: ENOXAPARIN SOD 40 MG/0.4 ML SYRINGE SC SCH (10:25)
--- NOTE | 2025-03-12 15:35 | DVHPNRES ---
Progress Note Date Seen: Mar 12, 2025 Resident Creating Document: THAD BOWERS RESIDENT Has the PT tested + for MRSA If YES, has PT been informed?: No Medical Necessity Reason Pt with a Central, PICC or Fol: No Subjective Review of Systems Patient was seen and examined on the bedside. She is alert oriented x3. Complaint of left lower quadrant abdominal pain but denies nausea/vomiting. Objective vital signs Vital Sign Date Time Temp Pulse Resp B/P (MAP) Pulse Ox O2 Delivery O2 Flow Rate FiO2 03/12/25 15:29 110 22 132/85 03/12/25 13:00 98.0 96 98.0 03/11/25 20:00 Room Air* 0 21 Total Intake and Output 03/11/25 03/11/25 03/12/25 15:00 23:00 07:00 Intake Total 150 ml 200 ml Balance 150 ml 200 ml medications Current Medications Medications Dose Ordered Sig/Hao Route Start Time Stop Time Status Last Admin Dose Admin Acetaminophen/ Hydrocodone Bitart 1 tab Q4HP PRN PO 03/10/25 14:15 03/11/25 08:37 1 TAB Ondansetron HCl 4 mg Q4HP PRN IV 03/10/25 14:15 Acetaminophen 650 mg Q6HP PRN PO 03/10/25 14:15 03/11/25 19:56 650 MG Metronidazole 100 ml @ 100 mls/hr Q8HR IV 03/10/25 22:00 03/12/25 14:00 100 MLS/HR Levothyroxine Sodium 175 mcg QAM@0600 PO 03/11/25 06:00 03/12/25 05:07 175 MCG Ergocalciferol 50,000 unit Q7D PO 03/11/25 11:15 03/11/25 12:59 50,000 UNIT Cyanocobalamin 1,000 mcg DAILY PO 03/12/25 10:00 Enoxaparin Sodium 40 mg DAILY SC 03/12/25 10:00 03/12/25 10:25 40 MG Pantoprazole Sodium 40 mg DAILY@0600 PO 03/12/25 06:00 03/12/25 05:07 40 MG Piperacillin Sod/ Tazobactam Sod 100 ml @ 25 mls/hr Q8H IV 03/11/25 23:00 03/12/25 15:12 25 MLS/HR Hydromorphone HCl 1 mg Q4HPRN PRN IV 03/11/25 23:00 03/12/25 15:29 1 MG Examination Physical examination: General Appearance: Morbidly obese, Alert, Oriented X3, Cooperative, No acute distress HEENT: Atraumatic, PERRLA, EOMI, Mucous membrane moist/pink Respiratory: Clear to auscultation, Normal air movement Cardiovascular: Regular rate, Normal S1, Normal S2, No murmurs, no chest wall tenderness Abdominal: Protuberant abdomen, soft, there is tenderness to deep palpation on the left lower quadrant bowel sounds present all 4 quadrants, no guarding, no rigidity, no organomegaly. Extremities: No clubbing, No cyanosis, No edema, Normal pulses, No tenderness/swelling Skin: No rashes, No breakdown, No significant lesion Neuro: Normal gait, Normal speech, Strength at 5/5 X4 ext, Normal tone, Sensation intact, Cranial nerves 3-12 NL, Reflexes 2+ Psych/Mental Status: Mental status NL, Mood NL laboratory and microbiology Laboratory Tests 03/12/25 04:52 Test 03/12/25 04:52 Range/Units Serum Glucose 100 74-106 mg/dL Microbiology Date/Time Source Procedure Growth Status 03/10/25 14:25 Blood Blood Culture - Preliminary Resulted Labs and/or images reviewed: Labs reviewed by me, Image(s) reviewed by me Problem List/Assessment/Plan Problem List/Assessment/Plan Assessment and plan: #Sepsis due to acute diverticulitis #Acute intractable abdominal pain, due to diverticulitis #Acute Diverticulitis of the distal descending colon. CT abdomen pelvis without contrast demonstrated Bowel wall thickening with surrounding inflammatory stranding involving the distal descending colon. Preliminary blood culture showed positive culture in 1 bottle Clear liquid diet IV Dilaudid 1 mg q.4 PRN IV Zosyn 3.375 g Q 8 hours, IV metronidazole 500 mg Q 8 hours GI recommended conservative management outpatient follow up after discharge for further evaluation and management # Asymptomatic Nephrolithiasis Nonobstructing left renal calculus measuring 2 mm. outpatient follow up # Chronic Hypothyroidism. 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 daily # DVT prophylaxis not indicated # Morbid obesity Counseled the patient importance of adopting healthy lifestyle with diet and exercise in order to lose weight Goal of care and code status discussed with the patient for 20 minutes; full code Plan discussed with Dr. Juarez Plan discussed with: Patient (RN), Other (RN) My Orders My Orders Orders - THAD BOWERS Procedure Category Date Status Time Clear Liq Diet DIET 03/12/25 Transmitted Lunch Date of Service: Mar 12, 2025 Billing Provider: KADY JUAREZ MD Common Visit Codes: [id number] INP/OBS CARE(HIGH) Secondary Visit Codes: [id number] CARE PLAN 30 MINUTES (20 minutes) THAD BOWERS Mar 12, 2025 15:35 KADY JUAREZ MD Mar 15, 2025 07:35
--- NOTE | 2025-03-12 18:39 | DVHPN2 ---
Progress Note - Dictate Date Seen: Mar 12, 2025 Has the PT tested + for MRSA If YES, has PT been informed?: No Medical Necessity Reason Pt with a Central, PICC or Fol: No Subjective Patient still has got some abdominal pain in the left lower quadrant No fever no shortness of breath no bleeding no nausea vomiting vital signs Vital Sign Date Time Temp Pulse Resp B/P (MAP) Pulse Ox O2 Delivery O2 Flow Rate FiO2 03/12/25 17:38 99.0 117 20 117/76 (90) 92 99.0 03/11/25 20:00 Room Air* 0 21 Total Intake and Output 03/11/25 03/11/25 03/12/25 15:00 23:00 07:00 Intake Total 150 ml 200 ml Balance 150 ml 200 ml medications Current Medications Medications Dose Ordered Sig/Hao Route Start Time Stop Time Status Last Admin Dose Admin Acetaminophen/ Hydrocodone Bitart 1 tab Q4HP PRN PO 03/10/25 14:15 03/11/25 08:37 1 TAB Ondansetron HCl 4 mg Q4HP PRN IV 03/10/25 14:15 Acetaminophen 650 mg Q6HP PRN PO 03/10/25 14:15 03/11/25 19:56 650 MG Metronidazole 100 ml @ 100 mls/hr Q8HR IV 03/10/25 22:00 03/12/25 14:00 100 MLS/HR Levothyroxine Sodium 175 mcg QAM@0600 PO 03/11/25 06:00 03/12/25 05:07 175 MCG Ergocalciferol 50,000 unit Q7D PO 03/11/25 11:15 03/11/25 12:59 50,000 UNIT Cyanocobalamin 1,000 mcg DAILY PO 03/12/25 10:00 Enoxaparin Sodium 40 mg DAILY SC 03/12/25 10:00 03/12/25 10:25 40 MG Pantoprazole Sodium 40 mg DAILY@0600 PO 03/12/25 06:00 03/12/25 05:07 40 MG Piperacillin Sod/ Tazobactam Sod 100 ml @ 25 mls/hr Q8H IV 03/11/25 23:00 03/12/25 15:12 25 MLS/HR Hydromorphone HCl 1 mg Q4HPRN PRN IV 03/11/25 23:00 03/12/25 15:29 1 MG objective Tenderness persist in the left lower quadrant and lower abdomen No rigidity no guarding No fever laboratory and microbiology Laboratory Tests 03/12/25 04:52 Test 03/12/25 04:52 Range/Units Serum Glucose 100 74-106 mg/dL Assessment/Plan Patient with complaints of abdominal pain in left lower quadrant with no vomiting no diarrhea. Physical examination obese in moderate distress from the pain the stent definite tenderness in the both lower quadrants especially left lower quadrant No rigidity no guarding CT scan showed acute diverticulitis as well as mild small stone in the ureter nonobstructive Clinical impression acute diverticulitis We will continue to treat with the antibiotics and follow the labs closely may need an elective colonoscopy later after a few weeks after the end cleaning of the diverticulitis thank you Dr. Ranulfo Moya discussed with: Patient WOLFGANG CAMILO MD Mar 12, 2025 18:39
[2025-03-13] VITALS (8 sets, daily range): BP systolic 94–144; BP diastolic 52–82; PULSE 84–106; RESP 17–21; TEMP 98.3–98.7; O2SAT 90–98
[2025-03-13 06:50] LABS: Hematocrit 36.7 % (36.0-46.0); Hemoglobin 12.1 g/dL (12.2-16.2); Mean Corpuscular Hemoglobin 29.2 pg (28.0-32.0); Mean Corpuscular Volume 88.3 fL (80.0-100.0); Nucleated Red Blood Cells % 0.2 %
[2025-03-13] MEDS: IOHEXOL 300 MG/ML 100ML BOTTLE IJ ONE (10:01)
[2025-03-13] MEDS: OMNIPAQUE 12mg/ml 500ml ORAL SOLUTION PO ONE (10:01)
--- NOTE | 2025-03-13 13:24 | DVH ---
EXAM DESCRIPTION: CT CT ABD PELVIS W CON-ORAL IV CLINICAL HISTORY: Abdominal pain, diverticulitis, possible abscess COMPARISON: None TECHNIQUE: CT abdomen and pelvis with IV contrast was performed. Coronal and sagittal MPR images were generated. CTDI, DLP = 25.74 / 1721.16 Dose reduction technique with one or more of the following methods was performed: Automated exposure control, adjustment of the mA and/or kV according to patient size, use of iterative reconstruction technique FINDINGS: Lower chest: Elevated right hemidiaphragm with right basilar subsegmental atelectasis. Small amount of pneumomediastinum in the posterior chest. Liver: Diffusely decreased in attenuation. . Biliary: Status post cholecystectomy. No biliary ductal dilatation. Pancreas: No fat stranding or focal lesion. Spleen: Normal in size.. Adrenal glands: No nodularity. Kidneys: Symmetric enhancement. No hydroureteronephrosis. Punctate left renal calculus. Bladder: Underdistended, limiting evaluation. Reproductive organs: Normal. Bowel: There is persistent pericolonic inflammatory changes and mild wall thickening of the descending colon. Enteric contrast within the stomach and small bowel without evidence of enteric leak from these regions. There is no enteric contrast in the large bowel. Peritoneum: Large amount of free air in the left upper abdomen around the stomach, pancreas, and left retroperitoneum. There is new extraluminal air in the left lower quadrant adjacent to the descending colon with a small amount of fluid in the region. Vessels: Normal caliber abdominal aorta. Lymph nodes: No suspicious lymph nodes. Soft tissues: Unremarkable. . Osseous structures: No acute fracture or subluxation. No suspicious osseous lesions. Degenerative changes of the visualized thoracolumbar spine. IMPRESSION: 1. Persistent inflammatory changes at the descending colon with new surrounding large volume extra-luminal air and small phlegmon. There is also air also extending into the left upper abdomen and posterior mediastinum. These findings are consistent with diverticulitis with perforation. Recommend surgery consulatation. 2. Hepatic steatosis 3. Punctate left renal calculus. No hydronephrosis. Critical findings discussed with Dr. Gaona by Dr. Flores via phone on 03/13/2025 01:21 PM.
--- NOTE | 2025-03-13 17:02 | DVHPN2 ---
Progress Note - Dictate Date Seen: Mar 13, 2025 Has the PT tested + for MRSA If YES, has PT been informed?: No Medical Necessity Reason Pt with a Central, PICC or Fol: No Subjective Patient has slightly increased abdominal pain in the left lower quadrant and left upper quadrant and epigastric area No fever no shortness of breath no bleeding no nausea vomiting vital signs Vital Sign Date Time Temp Pulse Resp B/P (MAP) Pulse Ox O2 Delivery O2 Flow Rate FiO2 03/13/25 14:01 103 20 116/80 03/13/25 12:49 98.5 90 98.5 03/13/25 08:00 Room Air* 0 21 Total Intake and Output 03/12/25 03/12/25 03/13/25 15:00 23:00 07:00 Intake Total 255 ml 1600 ml Balance 255 ml 1600 ml medications Current Medications Medications Dose Ordered Sig/Hao Route Start Time Stop Time Status Last Admin Dose Admin Acetaminophen/ Hydrocodone Bitart 1 tab Q4HP PRN PO 03/10/25 14:15 03/11/25 08:37 1 TAB Ondansetron HCl 4 mg Q4HP PRN IV 03/10/25 14:15 Acetaminophen 650 mg Q6HP PRN PO 03/10/25 14:15 03/12/25 23:20 650 MG Metronidazole 100 ml @ 100 mls/hr Q8HR IV 03/10/25 22:00 03/13/25 13:21 100 MLS/HR Levothyroxine Sodium 175 mcg QAM@0600 PO 03/11/25 06:00 03/13/25 06:18 175 MCG Ergocalciferol 50,000 unit Q7D PO 03/11/25 11:15 03/11/25 12:59 50,000 UNIT Cyanocobalamin 1,000 mcg DAILY PO 03/12/25 10:00 Enoxaparin Sodium 40 mg DAILY SC 03/12/25 10:00 03/13/25 09:57 40 MG Pantoprazole Sodium 40 mg DAILY@0600 PO 03/12/25 06:00 03/13/25 06:18 40 MG Piperacillin Sod/ Tazobactam Sod 100 ml @ 25 mls/hr Q8H IV 03/11/25 23:00 03/13/25 14:56 25 MLS/HR Hydromorphone HCl 1 mg Q4HPRN PRN IV 03/11/25 23:00 03/13/25 14:01 1 MG objective Obese abdomen Tenderness persist in the left lower quadrant and lower abdomen Mild guarding No fever Repeat CT scan showed with contrast orally there was a perforation with free air consistent with possible diverticulitis with perforation laboratory and microbiology Laboratory Tests 03/13/25 06:23 03/12/25 04:52 Test 03/12/25 04:52 Range/Units Serum Glucose 100 74-106 mg/dL Assessment/Plan Patient with complaints of abdominal pain in left lower quadrant and left upper quadrant now with increasing pain with no vomiting no diarrhea. Abdominal tenderness in in the epigastric area in both left upper quadrant left lower quadrant mild guarding no rigidity CT scan done with oral contrast shows possible perforation possibly from diverticulitis Suggestions keep NPO Recommend surgical consult as soon as possible stat consult Continue antibiotics Dr. Winchester Plan discussed with: Patient WOLFGANG WINCHESTER MD Mar 13, 2025 17:02
[2025-03-13 17:45] LABS: INR 1.03 (0.9-1.15); Partial Thromboplastin Time 32.5 SEC (24.5-34.5); Prothrombin Time 10.9 sec (9.3-11.8)
--- NOTE | 2025-03-13 18:18 | DVHPNRES ---
Progress Note Date Seen: Mar 13, 2025 Resident Creating Document: ROBERT GALLARDO RESIDENT Has the PT tested + for MRSA If YES, has PT been informed?: No Medical Necessity Reason Pt with a Central, PICC or Fol: No Subjective Review of Systems Lindsey Keller is a 40-year-old female patient with past medical history of hypothyroidism and obesity. The patient came to the [facility] with chief complaint of 1 day of abdominal pain, 4/10 localized on the LLQ, sharp-like, no irradiation, with no alleviating or aggravating factors, associated with nausea. The patient reports this is first time episode. The patient report her abdominal pain worsen to 8/10 in a couple of hours, this prompted her visit to the ED. The patient denies fever, chills, vomit, diarrhea or constipation. In the ED, the CT abdomen showed: Diverticulitis of the distal descending colon. Hepatic steatosis, hepatomegaly. No hydronephrosis. Nonobstructing left renal calculus measuring 2 mm. The WBC were: 11.3. The patient was admitted for further diagnosed and management. Past Medical History: Hypothyroidism Past Surgical History: Cholecystectomy, Family History: Noncontributory Social History: Smoke: No. Alcohol: none. Drugs: None. Lives: with [facility] Hospital course: On 03/11/25, the patient was evaluated an examined at the bedside. Patient's VS, labs and chart were reviewed. WBC still elevated. The patient reports her abdominal pain has improved to 3/10 after analgesia, nausea has resolved. The patient continues with IV antibiotics: Zosyn and metronidazole. Ceftriaxone was stopped. A GI consult was placed. The patient has asymptomatic 2mm renal calculi, non obstructive, at this moment will be only monitoring. The patient continues tolerating well clear liquid diet. We will continue monitoring the progress of this patient. On 03/12/25, the patient was seen and examined on the bedside. She is alert oriented x3. Complaint of left lower quadrant abdominal pain but denies and nausea vomiting. On 03/13/25, the patient was examined and evaluated at bedside. VS, labs and chart was reviewed. WBC are still trending up despite IV antibiotic Zosyn. The patient reports persistent LLQ abdominal pain 8/10, a new CT abd/pelv with contrast was ordered and showed critical finding: Persistent inflammatory changes at the descending colon with new surrounding large volume extra-luminal air and small phlegmon. There is also air also extending into the left upper abdomen and posterior mediastinum. These findings are consistent with diverticulitis with perforation. Recommend surgery consultation. A STAT surgical consult was placed and the patient was placed on NPO. The patient's case was presented via phone to Dr. Samaniego (Surgeon) who report he will come to see the patient. I have spoken with the patient and family member about the findings and addressed their concerns and questions to the best of my abilities, and other questions will be answer by the surgeon. We are waiting on surgeon orders. We will continue monitoring this patient progress closely. ROS: Constitutional: denies: chills, diaphoresis, fatigue, fever, malaise, sweats, weakness, others EENTM: denies: blurred vision, double vision, ear bleeding, ear discharge, ear drainage, ear pain, ear ringing, eye pain, eye redness, hearing loss, mouth pain, mouth swelling, nasal discharge, nose bleeding, nose congestion, nose pain, photophobia, tearing, throat pain, throat swelling, voice changes, others Respiratory: denies: cough, hemoptysis, orthopnea, SOB at rest, shortness of breath, SOB with excertion, stridor, wheezing, others Cardiovascular: denies: chest pain, dizzy spells, diaphoresis, Dyspnea on exertion, edema, irregular heart beat, left arm pain, lightheadedness, palpitations, PND, syncope, others Gastrointestinal: reports: Abdominal pain has increased /. Genitourinary: denies: burning, dysuria, flank pain, frequency, hematuria, incontinence, penile discharge, penile sore, pain, testicle pain, testicle swelling, urgency, others Neurological: reports: No headache; denies: dizziness, fainting, left sided numbness, left sided weakness, numbness, paresthesia, pre-existing deficit, right sided numbness, right sided weakness, seizure, speech problems, tingling, tremors, weakness, others Musculoskeletal: denies: back pain, gout, joint pain, joint swelling, muscle pain, muscle stiffness, neck pain, others Integumetry: denies: bruises, change in color, change in hair/nails, dryness, laceration, lesions, lumps, rash, wounds, others Allergic/Immunocompromised: denies: Difficulty Healing, Frequent Infections, Hives, Itching, others Hematologic/Lymphatic: denies: anemia, blood clots, easy bleeding, easy bruising, swollen glands, others Endocrine: denies: excessive hunger, excessive sweating, excessive thirst, excessive urination, flushing, intolerance to cold, intolerance to heat, unexplained weight gain, unexplained weight loss, others Psychiatric: denies: anxiety, bipolar disorder, depression, hopeless, panic disorder, schizophrenia, sleepless, suicidal, others All Other Systems: Reviewed and Negative Objective vital signs Vital Sign Date Time Temp Pulse Resp B/P (MAP) Pulse Ox O2 Delivery O2 Flow Rate FiO2 03/13/25 17:35 98.4 105 20 144/82 (102) 92 98.4 03/13/25 08:00 Room Air* 0 21 Total Intake and Output 03/12/25 03/12/25 03/13/25 15:00 23:00 07:00 Intake Total 255 ml 1600 ml Balance 255 ml 1600 ml medications Current Medications Medications Dose Ordered Sig/Hao Route Start Time Stop Time Status Last Admin Dose Admin Acetaminophen/ Hydrocodone Bitart 1 tab Q4HP PRN PO 03/10/25 14:15 03/11/25 08:37 1 TAB Ondansetron HCl 4 mg Q4HP PRN IV 03/10/25 14:15 Acetaminophen 650 mg Q6HP PRN PO 03/10/25 14:15 03/12/25 23:20 650 MG Metronidazole 100 ml @ 100 mls/hr Q8HR IV 03/10/25 22:00 03/13/25 13:21 100 MLS/HR Levothyroxine Sodium 175 mcg QAM@0600 PO 03/11/25 06:00 03/13/25 06:18 175 MCG Ergocalciferol 50,000 unit Q7D PO 03/11/25 11:15 03/11/25 12:59 50,000 UNIT Cyanocobalamin 1,000 mcg DAILY PO 03/12/25 10:00 Enoxaparin Sodium 40 mg DAILY SC 03/12/25 10:00 03/13/25 09:57 40 MG Pantoprazole Sodium 40 mg DAILY@0600 PO 03/12/25 06:00 03/13/25 06:18 40 MG Piperacillin Sod/ Tazobactam Sod 100 ml @ 25 mls/hr Q8H IV 03/11/25 23:00 03/13/25 14:56 25 MLS/HR Hydromorphone HCl 1 mg Q4HPRN PRN IV 03/11/25 23:00 03/13/25 14:01 1 MG Examination General Appearance: Morbidly obese, Alert, Oriented X3, Cooperative. Mild distress. HEENT: Atraumatic, PERRLA, EOMI, Mucous membrane moist/pink Respiratory: Clear to auscultation, Normal air movement Cardiovascular: Regular rate, Normal S1, Normal S2, No murmurs, no chest wall tenderness Abdominal: Protuberant abdomen, soft. There is tenderness to deep palpation on the left lower quadrant. bowel sounds present all 4 quadrants, no guarding, no rigidity. Extremities: No clubbing, No cyanosis, No edema, Normal pulses, No tenderness/swelling Skin: No rashes, No breakdown, No significant lesion Neuro: Normal gait, Normal speech, Strength at 5/5 X4 ext, Normal tone, Sensation intact, Cranial nerves 3-12 NL, Reflexes 2+ Psych/Mental Status: Mental status NL, Mood NL laboratory and microbiology Laboratory Tests 03/13/25 06:23 03/12/25 04:52 Test 03/12/25 04:52 Range/Units Serum Glucose 100 74-106 mg/dL Microbiology Date/Time Source Procedure Growth Status 03/11/25 18:55 Blood Blood Culture - Preliminary NO GROWTH AFTER 24 HOURS OF INCUBATION. Resulted Labs and/or images reviewed: Labs reviewed by me, Image(s) reviewed by me Problem List/Assessment/Plan Problem List/Assessment/Plan # Sepsis due to acute diverticulitis # Acute diverticulitis of large intestine with acute perforation and abscess # Acute intractable abdominal pain, due to acute diverticulitis # Acute Diverticular disease of the distal descending colon. Repeat CT abd/pelv with contrast: extra-luminal air and small phlegmo, compatible with perforation STAT surgery consultation and NPO orders PT/PTT/INR Continue Zosyn IV continue Flagyl 500mg/100ml IV Q8h Continue IV fluids GI consult: Colonoscopy as an out patient when the diverticulitis resolve. #Asymptomatic nephrolithiasis -Nonobstructing left renal calculus measuring 2 mm. -conservative management only. -IV fluids. #Chronic Hypothyroidism. TSH: 6.51 Levothyroxine 175mcg po qd (morning, only with water) #Hepatic steatosis with hepatomegaly. LFT's HbA1c: 5.3 #Morbid obesity Counseled the patient importance of adopting healthy lifestyle with diet and exercise in order to lose weight DVT prophylaxis: Lovenox 40 subcutaneous Diet: NPO in the setting of the new abdomen/pelvis CT find Code Status: Full code PCP: Dr. Aubree Byers. Case discussed with Dr. Juarez. Case discussed with patient and family member, patient agrees with current plan. Plan discussed with: Patient, Other (RN) My Orders My Orders Orders - ROBERT GALLARDO Procedure Category Date Status Time Ct Abd Pelvis W CT 03/13/25 Resulted Con-Oral & Iv 09:23 * Surgical Consult CONS 03/13/25 Transmitted Npo (Nothing By DIET 03/13/25 Transmitted Mouth) Diet Lunch Date of Service: Mar 13, 2025 Billing Provider: KADY JUAREZ MD Common Visit Codes: [id number] INP/OBS CARE(HIGH) ROBERT GALLARDO Mar 13, 2025 18:18 KADY JUAREZ MD Mar 15, 2025 07:37
[2025-03-13] MEDS: SODIUM CHLORIDE 0.9% 1,000 ML IV ONE (18:55)
--- NOTE | 2025-03-13 19:31 | DVHINCON2 ---
Consultation - Surgical Date Seen: Mar 13, 2025 Referring Physician Reason for Consultation Diverticulitis with perforation into the retroperitoneum History of Present Illness History of Present Illness Mrs. Landeros is a 40-year-old female who presented several days ago with acute diverticulitis of the descending colon. I was consulted today due to CT showing free air in the retroperitoneum. Patient states that her pain has been about the same or maybe slightly worsened since admission. She was getting fed today a clear liquid diet which since the CT has been stopped. Patient denies fevers, chills, nausea, vomiting, changes in urinary or stooling habits. Patient had a bowel movement today large nonbloody. Patient has never had diverticulitis before and has no history of colonoscopy. Past Medical/Surgical History Past Medical/Surgical History Past medical history hypothyroidism, AFib Past surgical history cholecystectomy, x2, cardiac ablation for AFib Family and Social History Family and Social History Family history noncontributory Allergies and medications Allergies: Coded Allergies: NO KNOWN ALLERGIES (Unverified , 01/15/21) Home Meds Reported Medications Tirzepatide (Zepbound) 5 Mg/0.5 Ml Inj, 5 MG SC DAILY, INJ 03/10/25 Levothyroxine Sodium (SYNTHROID TABLET) 100 Mcg Tb, 175 MCG PO DAILY, TAB 03/10/25 Review of systems Review of Systems: Deferred Examination Vital signs Vital Signs Date Time Temp Pulse Resp B/P (MAP) Pulse Ox O2 Delivery O2 Flow Rate FiO2 03/13/25 18:13 105 22 144/92 03/13/25 17:35 98.4 92 98.4 03/13/25 08:00 Room Air* 0 21 Laboratory Labs Test 03/13/25 18:55 03/13/25 17:09 03/13/25 13:00 03/13/25 06:23 Range/Units Prothrombin Time 10.9 9.3-11.8 sec Prothrombin Time INR 1.03 0.9-1.15 Activated Partial Thromboplast Time 32.5 24.5-34.5 SEC Stool Occult Blood Sample #3 Negative Negative Stool for White Cells None seen White Blood Count 16.8 #H 4.4-10.8 10^3/uL Red Blood Count 4.15 4.0-5.20 10^6/uL Hemoglobin 12.1 L 12.2-16.2 g/dL Hematocrit 36.7 36.0-46.0 % Mean Corpuscular Volume 88.3 80.0-100.0 fL Mean Corpuscular Hemoglobin 29.2 28.0-32.0 pg Mean Corpuscular Hemoglobin Concent 33.1 32.0-36.0 g/dL Red Cell Distribution Width 15.5 H 11.8-14.3 % Platelet Count 339 140-450 10^3/uL Mean Platelet Volume 8.8 6.9-10.8 fL Neutrophils (%) (Auto) 74.1 37.0-80.0 % Lymphocytes (%) (Auto) 16.9 10.0-50.0 % Monocytes (%) (Auto) 7.4 0.0-12.0 % Eosinophils (%) (Auto) 0.9 0.0-7.0 % Basophils (%) (Auto) 0.7 0.0-2.0 % Neutrophils # (Auto) 12.4 H 1.6-8.6 10 ^3/uL Lymphocytes # (Auto) 2.8 0.4-5.4 10 ^3/uL Monocytes # (Auto) 1.3 0-1.3 10 ^3/uL Eosinophils # (Auto) 0.2 0-0.8 10 ^3/uL Basophils # (Auto) 0.1 0-0.2 10 ^3/uL Nucleated Red Blood Cells 0.2 % Test 03/12/25 04:52 03/11/25 10:11 03/11/25 08:47 03/11/25 03:57 Range/Units Sodium Level 140 136-145 mmol/L Potassium Level 3.7 3.5-5.1 mmol/L Chloride Level 102 98-107 mmol/L Carbon Dioxide Level 28 20-31 mmol/L Anion Gap 10 5-15 Blood Urea Nitrogen 6 L 9-23 mg/dL Creatinine 1.06 H 0.550-1.02 mg/dL Glomerular Filtration Rate Calc 69 >90 mL/min BUN/Creatinine Ratio 5.7 L 10.0-20.0 Serum Glucose 100 74-106 mg/dL Calcium Level 8.7 8.7-10.4 mg/dL Magnesium Level 2.2 1.6-2.6 mg/dL Influenza Type A Antigen Negative Negative Influenza Type B Antigen Negative Negative SARS-CoV-2 Antigen (Rapid) Negative NEGATIVE Urine Opiates Screen Neg NEGATIVE Urine Fentanyl Screen Neg NEGATIVE Urine Barbiturates Screen Neg NEGATIVE Urine Phencyclidine Screen Neg NEGATIVE Urine Amphetamines Screen Neg NEGATIVE Urine Benzodiazepines Screen Neg NEGATIVE Urine Cocaine Screen Neg NEGATIVE Urine Cannabinoids Screen Neg NEGATIVE Hemoglobin A1c 5.3 <5.7 % A1C Total Bilirubin 1.2 H 0.2-1.0 mg/dL Direct Bilirubin 0.4 H <0.3 mg/dL Aspartate Amino Transferase (AST) 13 13-40 U/L Alanine Aminotransferase (ALT) 20 7-40 U/L Alkaline Phosphatase 90 46-116 U/L Total Protein 6.4 5.7-8.2 g/dL Albumin 3.9 3.2-4.8 g/dL Triglycerides Level 79 < 150 mg/dL Cholesterol Level 143 < 200 mg/dL LDL Cholesterol 83 < 100 mg/dL HDL Cholesterol 46 40-59 mg/dL Vitamin B12 Level 299 211-911 pg/mL Vitamin D 25-Hydroxy 21.6 L 30.0-100 ng/mL Thyroid Stimulating Hormone (TSH) 6.51 H 0.55-4.78 uIU/mL Test 03/10/25 11:06 Range/Units Urine Color Light-yellow Yellow Urine Clarity Clear Clear Urine pH 6.0 5.0-9.0 Urine Specific [place] 1.011 1.001-1.035 Urine Protein Negative Negative Urine Ketones Negative Negative Urine Blood Negative Negative /uL Urine Nitrite Negative Negative Urine Bilirubin Negative Negative Urine Urobilinogen Normal Negative mg/dL Urine Leukocyte Esterase Negative Negative /uL Urine RBC 1 0 - 4 /hpf Urine Microscopic WBC 1 0-5 /HPF Urine Squamous Epithelial Cells Few <5 /hpf Urine Bacteria Few H None Seen /hpf Urine Glucose Normal Normal mg/dL Urine Test Negative Negative Microbiology Date/Time Source Procedure Growth Status 03/11/25 18:55 Blood Blood Culture - Preliminary NO GROWTH AFTER 48 HOURS OF INCUBATION. Resulted Examination: GENERAL:Normal (Morbid obese, AAO x3), HEENT:Normal (No icterus, neck supple), LUNGS:Normal (Nonlabored breathing with symmetric expansion), ABDOMEN:Abnormal (Large pannus, scars well healed, soft, depressible, left sided abdominal tenderness towards left flank, no rebound, no guarding) Problem List/Assessment/Plan Problems: (1) Diverticulitis of colon with perforation Assessment and Plan Mrs. Landeros is a 40-year-old female who has been admitted for several days in the hospital due to acute diverticulitis. Patient had a repeat CT today due to increase in leukocytosis to 16.8 from 12.8, CT shows Izabella descending colon phlegmon with air in the left retroperitoneum, this likely is due to micro perforation of the left colon as there is no fluid collections. Given that the patient is not septic, has only occasional tachycardic episode to the low 100s, I will continue with non op management with bowel rest and IV antibiotics, at this point. I explained to the patient that if her condition worsened and became peritonitic, then she will go to the operating room for colon resection and end colostomy. I also explained to the patient that even if nonoperative management was successful, she is still high risk for getting an abscess due to the bacterial translocation from the perforation. Patient agreed with the surgical plan. 1. NPO except for meds with small sip of water 2. IV Zosyn 3. Pain and nausea control 4. Out of bed and ambulate 5. A.m. labs Plan discussed with Plan discussed with: Patient Visit Coding Surgery Date of Service if different f: Mar 13, 2025 Billing Provider: TOBI BENNETT MD Surgery Visit Codes: 15558 - INP CONSULT <110 MIN TOBI BENNETT MD Mar 13, 2025 19:31
[2025-03-14] VITALS (8 sets, daily range): BP systolic 105–154; BP diastolic 50–96; PULSE 89–107; RESP 17–20; TEMP 97.5–98.1; O2SAT 92–99
[2025-03-14 07:07] LABS: Hematocrit 35.5 % (36.0-46.0); Hemoglobin 12.1 g/dL (12.2-16.2); Mean Corpuscular Hemoglobin 29.8 pg (28.0-32.0); Mean Corpuscular Volume 87.5 fL (80.0-100.0); Nucleated Red Blood Cells % 0.0 %
[2025-03-14 07:10] LABS: Anion Gap 8 (5-15); Carbon Dioxide 29 mmol/L (20-31); Chloride 102 mmol/L (98-107); Sodium 139 mmol/L (136-145)
[2025-03-14 07:11] LABS: Calcium 8.8 mg/dL (8.7-10.4)
[2025-03-14 07:13] LABS: Potassium 3.3 mmol/L (3.5-5.1)
[2025-03-14 07:16] LABS: BUN/Creatinine Ratio 9.3 (10.0-20.0); Blood Urea Nitrogen 9 mg/dL (9-23); Glucose 89 mg/dL (74-106)
[2025-03-14] MEDS: POTASSIUM EFFERVESENT TAB 25 MEQ PO ONE (08:54)
--- NOTE | 2025-03-14 14:45 | DVHPNRES ---
Progress Note Date Seen: Mar 14, 2025 Resident Creating Document: NEAL JAVED RESIDENT Has the PT tested + for MRSA If YES, has PT been informed?: No Medical Necessity Reason Pt with a Central, PICC or Fol: No Subjective Review of Systems Lindsey Keller is a 40-year-old female patient with past medical history of hypothyroidism and obesity. The patient came to the [facility] with chief complaint of 1 day of abdominal pain, 4/10 localized on the LLQ, sharp-like, no irradiation, with no alleviating or aggravating factors, associated with nausea. The patient reports this is first time episode. The patient report her abdominal pain worsen to 8/10 in a couple of hours, this prompted her visit to the ED. The patient denies fever, chills, vomit, diarrhea or constipation. In the ED, the CT abdomen showed: Diverticulitis of the distal descending colon. Hepatic steatosis, hepatomegaly. No hydronephrosis. Nonobstructing left renal calculus measuring 2 mm. The WBC were: 11.3. The patient was admitted for further diagnosed and management. Past Medical History: Hypothyroidism Past Surgical History: Cholecystectomy, Family History: Noncontributory Social History: Smoke: No. Alcohol: none. Drugs: None. Lives: with [place] [facility] course: On 03/11/25, the patient was evaluated an examined at the bedside. Patient's VS, labs and chart were reviewed. WBC still elevated. The patient reports her abdominal pain has improved to 3/10 after analgesia, nausea has resolved. The patient continues with IV antibiotics: Sozyn and metronidazole. Ceftriaxone was stopped. A GI consult was placed. The patient has asymptomatic 2mm renal calculi, non obstructive, at this moment will be only monitoring. The patient continues tolerating well clear liquid diet. We will continue monitoring the progress of this patient. On 03/12/25, the patient was seen and examined on the bedside. She is alert oriented x3. Complaint of left lower quadrant abdominal pain but denies and nausea vomiting. On 03/13/25, the patient was examined and evaluated at bedside. VS, labs and chart was reviewed. WBC are still trending up despite IV antibiotic Zocyn. The patient reports persistent LLQ abdominal pain 8/10, a new CT abd/pelv with contrast was ordered and showed critical finding: Persistent inflammatory changes at the descending colon with new surrounding large volume extra-luminal air and small phlegmon. There is also air also extending into the left upper abdomen and posterior mediastinum. These findings are consistent with diverticulitis with perforation. Recommend surgery consulatation. A STAT surgical consult was placed and the patient was placed on NPO. The patient's case was presented via phone to Dr. Samaniego ([facility]) who report he will come to see the patient. I have spoken with the patient and family member about the findings and addressed their concerns and questions to the best of my abilities, and other questions will be answer by the surgeon. We are waiting on surgeon orders. We will continue monitoring this patient progress closely. On 03/14/25, the patient reports feeling better and is having non-bloody bowel movements. She still has left-sided abdominal pain, but the pain has diminished in intensity. The patient will remain NPO for at least three days and continue intravenous antibiotics. There is no plan for surgery at this time because the patient is not peritonitic and vital signs are within normal limits. Intravenous Zosyn will be continued. Pain and nausea will be controlled. The patient will be encouraged to get out of bed and ambulate. Morning labs will be obtained. ROS: Constitutional: denies: chills, diaphoresis, fatigue, fever, malaise, sweats, weakness, others EENTM: denies: blurred vision, double vision, ear bleeding, ear discharge, ear drainage, ear pain, ear ringing, eye pain, eye redness, hearing loss, mouth pain, mouth swelling, nasal discharge, nose bleeding, nose congestion, nose pain, photophobia, tearing, throat pain, throat swelling, voice changes, others Respiratory: denies: cough, hemoptysis, orthopnea, SOB at rest, shortness of breath, SOB with excertion, stridor, wheezing, others Cardiovascular: denies: chest pain, dizzy spells, diaphoresis, Dyspnea on exertion, edema, irregular heart beat, left arm pain, lightheadedness, palpitations, PND, syncope, others Gastrointestinal: reports: Abdominal pain has increased 4/10. Genitourinary: denies: burning, dysuria, flank pain, frequency, hematuria, incontinence, penile discharge, penile sore, pain, testicle pain, testicle swelling, urgency, others Neurological: reports: No headache; denies: dizziness, fainting, left sided numbness, left sided weakness, numbness, paresthesia, pre-existing deficit, right sided numbness, right sided weakness, seizure, speech problems, tingling, tremors, weakness, others Musculoskeletal: denies: back pain, gout, joint pain, joint swelling, muscle pain, muscle stiffness, neck pain, others Integumetry: denies: bruises, change in color, change in hair/nails, dryness, laceration, lesions, lumps, rash, wounds, others Allergic/Immunocompromised: denies: Difficulty Healing, Frequent Infections, Hives, Itching, others Hematologic/Lymphatic: denies: anemia, blood clots, easy bleeding, easy bruising, swollen glands, others Endocrine: denies: excessive hunger, excessive sweating, excessive thirst, excessive urination, flushing, intolerance to cold, intolerance to heat, unexplained weight gain, unexplained weight loss, others Psychiatric: denies: anxiety, bipolar disorder, depression, hopeless, panic disorder, schizophrenia, sleepless, suicidal, others All Other Systems: Reviewed and Negative Objective vital signs Vital Sign Date Time Temp Pulse Resp B/P (MAP) Pulse Ox O2 Delivery O2 Flow Rate FiO2 03/14/25 12:45 97.5 89 18 130/87 (101) 93 97.5 03/13/25 20:00 Room Air* 0 21 Total Intake and Output 03/13/25 03/13/25 03/14/25 15:00 23:00 07:00 Intake Total 100 ml 675 ml 200 ml Balance 100 ml 675 ml 200 ml medications Current Medications Medications Dose Ordered Sig/Hao Route Start Time Stop Time Status Last Admin Dose Admin Acetaminophen/ Hydrocodone Bitart 1 tab Q4HP PRN PO 03/10/25 14:15 03/11/25 08:37 1 TAB Ondansetron HCl 4 mg Q4HP PRN IV 03/10/25 14:15 Acetaminophen 650 mg Q6HP PRN PO 03/10/25 14:15 03/12/25 23:20 650 MG Metronidazole 100 ml @ 100 mls/hr Q8HR IV 03/10/25 22:00 03/14/25 05:30 100 MLS/HR Levothyroxine Sodium 175 mcg QAM@0600 PO 03/11/25 06:00 03/14/25 05:30 175 MCG Ergocalciferol 50,000 unit Q7D PO 03/11/25 11:15 03/11/25 12:59 50,000 UNIT Cyanocobalamin 1,000 mcg DAILY PO 03/12/25 10:00 Enoxaparin Sodium 40 mg DAILY SC 03/12/25 10:00 03/14/25 08:54 40 MG Pantoprazole Sodium 40 mg DAILY@0600 PO 03/12/25 06:00 03/14/25 05:30 40 MG Piperacillin Sod/ Tazobactam Sod 100 ml @ 25 mls/hr Q8H IV 03/11/25 23:00 03/14/25 06:42 25 MLS/HR Hydromorphone HCl 1 mg Q4HPRN PRN IV 03/11/25 23:00 03/14/25 10:00 1 MG Examination General Appearance: Alert, Oriented X3, Cooperative. Mild distress. HEENT: Atraumatic, PERRLA, EOMI, Mucous membrane moist/pink Respiratory: Clear to auscultation, Normal air movement Cardiovascular: Regular rate, Normal S1, Normal S2, No murmurs, no chest wall tenderness Abdominal: Protuberant abdomen, soft. There is tenderness to deep palpation on the left lower quadrant. bowel sounds present all 4 quadrants, no guarding, no rigidity. Extremities: No clubbing, No cyanosis, No edema, Normal pulses, No tenderness/swelling Skin: No rashes, No breakdown, No significant lesion Neuro: Normal gait, Normal speech, Strength at 5/5 X4 ext, Normal tone, Sensation intact, Cranial nerves 3-12 NL, Reflexes 2+ Psych/Mental Status: Mental status NL, Mood NL laboratory and microbiology Laboratory Tests 03/14/25 06:11 Test 03/14/25 06:11 Range/Units Serum Glucose 89 74-106 mg/dL Microbiology Date/Time Source Procedure Growth Status 03/13/25 13:00 Stool Stool Culture - Preliminary Resulted 03/13/25 13:00 Stool Shiga Toxin I & II - Final Resulted 03/11/25 18:55 Blood Blood Culture - Preliminary NO GROWTH AFTER 48 HOURS OF INCUBATION. Resulted Labs and/or images reviewed: Labs reviewed by me, Image(s) reviewed by me Problem List/Assessment/Plan Problem List/Assessment/Plan # Sepsis due to acute diverticulitis # Acute diverticulitis of large intestine with acute perforation and abscess # Acute intractable abdominal pain, due to acute diverticulitis # Acute Diverticular disease of the distal descending colon. CT abd/pelv with contrast: extra-luminal air and small phlegmo, compatible with perforation surgery consultation and NPO orders: conservative treatment for now PT/PTT/INR Continue Zosyn IV continue Flagyl 500mg/100ml IV Q8h Continue IV fluids GI consult: Colonoscopy as an out patient when the diverticulitis resolve. For pain: ketorolac (can be given when the perforation is lower GI), low dose hydromorphone #Asymptomatic acute nephrolothiasis -Nonobstructing left renal calculus measuring 2 mm. -conservative management only. -IV fluids. #Chronic Hypothyroidism. TSH: 6.51 Levothyroxine 175mcg po qd (morning, only with water) #Hepatic steatosis with hepatomegaly. LFT's HbA1c: 5.3 Diet: Clinimix, NPO DVT prophylaxis: Lovenox 40 subcutaneous Goals of care discussed with the patient for more than 35 minutes Code Status: Full code PCP: Dr. Aubree Byers. Case discussed with Dr. Nolasco Plan discussed with: Patient NEAL JAVED RESIDENT Mar 14, 2025 14:45 TATI GASPAR RESIDENT Mar 15, 2025 06:49
--- NOTE | 2025-03-14 14:52 | DVHPN2 ---
Progress Note - Surgical Date Seen: Mar 14, 2025 Post op day Post op day: 0 Subjective Patient reports: Feels better (Patient continues to feel better, left-sided abdominal pain is less in intensity and pain meds are lasting longer, no nausea, no vomiting, having bowel movements (liquidy), afebrile with stable vital signs although occasional low tachycardia but improving) Review of Systems: Deferred Objective Vital signs Vital Sign Date Time Temp Pulse Resp B/P (MAP) Pulse Ox O2 Delivery O2 Flow Rate FiO2 03/14/25 12:45 97.5 89 18 130/87 (101) 93 97.5 03/13/25 20:00 Room Air* 0 21 Total Intake and Output 03/13/25 03/13/25 03/14/25 15:00 23:00 07:00 Intake Total 100 ml 675 ml 200 ml Balance 100 ml 675 ml 200 ml Medications Current Medications Medications Dose Ordered Sig/Hao Route Start Time Stop Time Status Last Admin Dose Admin Acetaminophen/ Hydrocodone Bitart 1 tab Q4HP PRN PO 03/10/25 14:15 03/11/25 08:37 1 TAB Ondansetron HCl 4 mg Q4HP PRN IV 03/10/25 14:15 Acetaminophen 650 mg Q6HP PRN PO 03/10/25 14:15 03/12/25 23:20 650 MG Metronidazole 100 ml @ 100 mls/hr Q8HR IV 03/10/25 22:00 03/14/25 05:30 100 MLS/HR Levothyroxine Sodium 175 mcg QAM@0600 PO 03/11/25 06:00 03/14/25 05:30 175 MCG Ergocalciferol 50,000 unit Q7D PO 03/11/25 11:15 03/11/25 12:59 50,000 UNIT Cyanocobalamin 1,000 mcg DAILY PO 03/12/25 10:00 Enoxaparin Sodium 40 mg DAILY SC 03/12/25 10:00 03/14/25 08:54 40 MG Pantoprazole Sodium 40 mg DAILY@0600 PO 03/12/25 06:00 03/14/25 05:30 40 MG Piperacillin Sod/ Tazobactam Sod 100 ml @ 25 mls/hr Q8H IV 03/11/25 23:00 03/14/25 06:42 25 MLS/HR Hydromorphone HCl 1 mg Q4HPRN PRN IV 03/11/25 23:00 03/14/25 10:00 1 MG Laboratory Laboratory Tests 03/14/25 06:11 Test 03/14/25 06:11 Range/Units Serum Glucose 89 74-106 mg/dL Microbiology Date/Time Source Procedure Growth Status 03/13/25 13:00 Stool Stool Culture - Preliminary Resulted 03/13/25 13:00 Stool Shiga Toxin I & II - Final Resulted 03/11/25 18:55 Blood Blood Culture - Preliminary NO GROWTH AFTER 48 HOURS OF INCUBATION. Resulted Examination: GENERAL:Normal (Alert awake and oriented x3), HEENT:Normal, LUNGS:Normal (Nonlabored breathing with symmetric expansion), ABDOMEN:Abnormal (Large pannus, soft, depressible, left abdominal/flank tenderness, no rebound, no guarding) Labs and/or images reviewed: Labs reviewed by me (Leukocytosis downtrending 9.8 from 16.8) Problem List/Assessment/Plan Problems: (1) Diverticulitis of colon with perforation Assessment and Plan Mrs. Landeros is a 40-year-old female who has been admitted for several days in the hospital due to acute diverticulitis. Patient had a repeat CT today due to increase in leukocytosis to 16.8 from 12.8, CT shows Izabella descending colon phlegmon with air in the left retroperitoneum, this likely is due to micro perforation of the left colon as there is no fluid collections. Given that the patient is not septic, has only occasional tachycardic episode to the low 100s, I will continue with non op management with bowel rest and IV antibiotics, at this point. I explained to the patient that if her condition worsened and became peritonitic, then she will go to the operating room for colon resection and end colostomy. I also explained to the patient that even if nonoperative management was successful, she is still high risk for getting an abscess due to the bacterial translocation from the perforation. Patient agreed with the surgical plan. Interval: Patient feeling better today, having bowel movements (nonbloody), still having left-sided abdominal pain but the pain has diminished in intensity. Patient to remain NPO for at least 3 days, and to continue with IV antibiotics. No plan for surgery at this moment, since patient is not peritonitic and vitals are within normal limits. 1. NPO except for meds with small sip of water 2. IV Zosyn 3. Pain and nausea control 4. Out of bed and ambulate 5. A.m. labs Plan discussed with Plan discussed with: Patient, Spouse Visit Coding Surgery Date of Service if different f: Mar 14, 2025 Billing Provider: TOBI BENNETT MD Surgery Visit Codes: [id number] INP/OBS CARE(HIGH) TOBI BENNETT MD Mar 14, 2025 14:52
[2025-03-14] MEDS: SODIUM CHLORIDE 0.9% 1,000 ML IV SCH (16:30)
[2025-03-14] MEDS ORDERED: CLINIMIX PER PHARMACY 0 ML IV SCH (16:30)
[2025-03-14] MEDS ORDERED: KETOROLAC TROMETH 30 MG/ML 1ML VIAL IV PRN (16:45)
--- NOTE | 2025-03-14 19:43 | DVHPN2 ---
Progress Note - Dictate Date Seen: Mar 14, 2025 Has the PT tested + for MRSA If YES, has PT been informed?: No Medical Necessity Reason Pt with a Central, PICC or Fol: No Subjective Feeling slightly better Mild pain still there walking around NPO Case discussed with surgeon recommends conservative treatment for now vital signs Vital Sign Date Time Temp Pulse Resp B/P (MAP) Pulse Ox O2 Delivery O2 Flow Rate FiO2 03/14/25 17:00 97.8 92 17 154/84 (107) 99 97.8 03/14/25 08:00 Room Air* 0 21 Total Intake and Output 03/13/25 03/13/25 03/14/25 15:00 23:00 07:00 Intake Total 100 ml 675 ml 200 ml Balance 100 ml 675 ml 200 ml medications Current Medications Medications Dose Ordered Sig/Hao Route Start Time Stop Time Status Last Admin Dose Admin Ondansetron HCl 4 mg Q4HP PRN IV 03/10/25 14:15 Acetaminophen 650 mg Q6HP PRN PO 03/10/25 14:15 03/12/25 23:20 650 MG Metronidazole 100 ml @ 100 mls/hr Q8HR IV 03/10/25 22:00 03/14/25 16:21 100 MLS/HR Levothyroxine Sodium 175 mcg QAM@0600 PO 03/11/25 06:00 03/14/25 05:30 175 MCG Ergocalciferol 50,000 unit Q7D PO 03/11/25 11:15 03/11/25 12:59 50,000 UNIT Cyanocobalamin 1,000 mcg DAILY PO 03/12/25 10:00 Enoxaparin Sodium 40 mg DAILY SC 03/12/25 10:00 03/14/25 08:54 40 MG Pantoprazole Sodium 40 mg DAILY@0600 PO 03/12/25 06:00 03/14/25 05:30 40 MG Piperacillin Sod/ Tazobactam Sod 100 ml @ 25 mls/hr Q8H IV 03/11/25 23:00 03/14/25 18:03 25 MLS/HR Amino Acids 0 ml @ 0 mls/hr PER PHARMACY IV 03/14/25 16:30 UNV Sodium Chloride 1,000 ml @ 75 mls/hr [id number] IV 03/14/25 16:30 Ketorolac Tromethamine 15 mg Q6HPRN PRN IV 03/14/25 16:45 03/19/25 16:44 UNV Amino Acids/ Electrolytes/ Dextrose 1,000 ml @ 42 mls/hr DAILY@2200 IV 03/14/25 22:00 objective Obese abdomen able to walk around without too much pain No rigidity or guarding laboratory and microbiology Laboratory Tests 03/14/25 06:11 Test 03/14/25 06:11 Range/Units Serum Glucose 89 74-106 mg/dL Assessment/Plan Patient with complaints of abdominal pain in left lower quadrant and left upper quadrant now with increasing pain with no vomiting no diarrhea. Abdominal tenderness in in the epigastric area in both left upper quadrant left lower quadrant mild guarding no rigidity CT scan done with oral contrast shows possible perforation possibly from diverticulitis Suggestions keep NPO Surgeon recommended conservative treatment and observation for now Recommend follow-up closely and further recommendations as per the surgeon Thank you Dr. Winchester Plan discussed with: Patient WOLFGANG WINCHESTER MD Mar 14, 2025 19:43
[2025-03-14] MEDS: AMINO ACID INFUSION IN D10W 1,000 ML IV SCH (22:00)
[2025-03-14] MEDS: HYDROmorphone HCL 2 MG/ML VL/or syr IV ONE (22:27)
[2025-03-15] VITALS (8 sets, daily range): BP systolic 114–145; BP diastolic 63–86; PULSE 81–97; RESP 16–18; TEMP 97.8–98.3; O2SAT 94–96
[2025-03-15 06:25] LABS: Hematocrit 34.5 % (36.0-46.0); Hemoglobin 11.8 g/dL (12.2-16.2); Mean Corpuscular Hemoglobin 29.7 pg (28.0-32.0); Mean Corpuscular Volume 86.8 fL (80.0-100.0); Nucleated Red Blood Cells % 0.0 %
[2025-03-15 06:33] LABS: Alanine Aminotransferase 11 U/L (7-40); Alkaline Phosphatase 93 U/L (46-116); Chloride 101 mmol/L (98-107); Sodium 141 mmol/L (136-145)
[2025-03-15 06:34] LABS: Anion Gap 11 (5-15); Carbon Dioxide 29 mmol/L (20-31)
[2025-03-15 06:39] LABS: Glucose 92 mg/dL (74-106)
[2025-03-15 06:40] LABS: BUN/Creatinine Ratio 8.8 (10.0-20.0); Magnesium 2.1 mg/dL (1.6-2.6); Total Protein 6.4 g/dL (5.7-8.2)
[2025-03-15 06:41] LABS: Albumin 3.7 g/dL (3.2-4.8)
[2025-03-15 06:42] LABS: Bilirubin, Total 0.4 mg/dL (0.2-1.0)
[2025-03-15 06:50] LABS: Blood Urea Nitrogen 8 mg/dL (9-23); Calcium 8.7 mg/dL (8.7-10.4); Potassium 3.4 mmol/L (3.5-5.1)
[2025-03-15] MEDS ORDERED: DEXTROSE (50%) 50ML SYRG IV SCH (07:15)
[2025-03-15] MEDS: POTASSIUM EFFERVESENT TAB 25 MEQ PO ONE (08:45)
[2025-03-15] MEDS ORDERED: KETOROLAC TROMETH 30 MG/ML 1ML VIAL IV PRN (09:00)
--- NOTE | 2025-03-15 10:31 | DVHPNRES ---
Progress Note Date Seen: Mar 15, 2025 Resident Creating Document: NEAL JAVED RESIDENT Has the PT tested + for MRSA If YES, has PT been informed?: No Medical Necessity Reason Pt with a Central, PICC or Fol: No Medical Necessity Reason Lindsey Keller is a 40-year-old female patient with past medical history of hypothyroidism and obesity. The patient came to the [facility] with chief complaint of 1 day of abdominal pain, 4/10 localized on the LLQ, sharp-like, no irradiation, with no alleviating or aggravating factors, associated with nausea. The patient reports this is first time episode. The patient report her abdominal pain worsen to 8/10 in a couple of hours, this prompted her visit to the ED. The patient denies fever, chills, vomit, diarrhea or constipation. In the ED, the CT abdomen showed: Diverticulitis of the distal descending colon. Hepatic steatosis, hepatomegaly. No hydronephrosis. Nonobstructing left renal calculus measuring 2 mm. The WBC were: 11.3. The patient was admitted for further diagnosed and management. Past Medical History: Hypothyroidism Past Surgical History: Cholecystectomy, Family History: Noncontributory Social History: Smoke: No. Alcohol: none. Drugs: None. Lives: with [facility] course: On 03/11/25, the patient was evaluated an examined at the bedside. Patient's VS, labs and chart were reviewed. WBC still elevated. The patient reports her abdominal pain has improved to 3/10 after analgesia, nausea has resolved. The patient continues with IV antibiotics: Sozyn and metronidazole. Ceftriaxone was stopped. A GI consult was placed. The patient has asymptomatic 2mm renal calculi, non obstructive, at this moment will be only monitoring. The patient continues tolerating well clear liquid diet. We will continue monitoring the progress of this patient. On 03/12/25, the patient was seen and examined on the bedside. She is alert oriented x3. Complaint of left lower quadrant abdominal pain but denies and nausea vomiting. On 03/13/25, the patient was examined and evaluated at bedside. VS, labs and chart was reviewed. WBC are still trending up despite IV antibiotic Zocyn. The patient reports persistent LLQ abdominal pain 8/10, a new CT abd/pelv with contrast was ordered and showed critical finding: Persistent inflammatory changes at the descending colon with new surrounding large volume extra-luminal air and small phlegmon. There is also air also extending into the left upper abdomen and posterior mediastinum. These findings are consistent with diverticulitis with perforation. Recommend surgery consulatation. A STAT surgical consult was placed and the patient was placed on NPO. The patient's case was presented via phone to Dr. Samaniego ([facility]) who report he will come to see the patient. I have spoken with the patient and family member about the findings and addressed their concerns and questions to the best of my abilities, and other questions will be answer by the surgeon. We are waiting on surgeon orders. We will continue monitoring this patient progress closely. On 03/14/25, the patient reports feeling better and is having non-bloody bowel movements. She still has left-sided abdominal pain, but the pain has diminished in intensity. The patient will remain NPO for at least three days and continue intravenous antibiotics. There is no plan for surgery at this time because the patient is not peritonitic and vital signs are within normal limits. Intravenous Zosyn will be continued. Pain and nausea will be controlled. The patient will be encouraged to get out of bed and ambulate. Morning labs will be obtained. On 03/15/25, the patient was seen and examined at bedside. Overnight events were reviewed. The patient reports improvement in her symptoms. On examination, mild guarding noted without rigidity. Keep patient NPO. Surgeon recommends conservative management and close observation. Follow-up closely and adjust treatment per surgical recommendations. ROS: Constitutional: denies: chills, diaphoresis, fatigue, fever, malaise, sweats, weakness, others EENTM: denies: blurred vision, double vision, ear bleeding, ear discharge, ear drainage, ear pain, ear ringing, eye pain, eye redness, hearing loss, mouth pain, mouth swelling, nasal discharge, nose bleeding, nose congestion, nose pain, photophobia, tearing, throat pain, throat swelling, voice changes, others Respiratory: denies: cough, hemoptysis, orthopnea, SOB at rest, shortness of breath, SOB with excertion, stridor, wheezing, others Cardiovascular: denies: chest pain, dizzy spells, diaphoresis, Dyspnea on exertion, edema, irregular heart beat, left arm pain, lightheadedness, palpitations, PND, syncope, others Gastrointestinal: reports: Abdominal pain has increased 11/04. Genitourinary: denies: burning, dysuria, flank pain, frequency, hematuria, incontinence, penile discharge, penile sore, pain, testicle pain, testicle swelling, urgency, others Neurological: reports: No headache; denies: dizziness, fainting, left sided numbness, left sided weakness, numbness, paresthesia, pre-existing deficit, right sided numbness, right sided weakness, seizure, speech problems, tingling, tremors, weakness, others Musculoskeletal: denies: back pain, gout, joint pain, joint swelling, muscle pain, muscle stiffness, neck pain, others Integumetry: denies: bruises, change in color, change in hair/nails, dryness, laceration, lesions, lumps, rash, wounds, others Allergic/Immunocompromised: denies: Difficulty Healing, Frequent Infections, Hives, Itching, others Hematologic/Lymphatic: denies: anemia, blood clots, easy bleeding, easy bruising, swollen glands, others Endocrine: denies: excessive hunger, excessive sweating, excessive thirst, excessive urination, flushing, intolerance to cold, intolerance to heat, unexplained weight gain, unexplained weight loss, others Psychiatric: denies: anxiety, bipolar disorder, depression, hopeless, panic disorder, schizophrenia, sleepless, suicidal, others All Other Systems: Reviewed and Negative Objective vital signs Vital Sign Date Time Temp Pulse Resp B/P (MAP) Pulse Ox O2 Delivery O2 Flow Rate FiO2 03/15/25 09:00 97.9 85 16 114/79 (91) 95 97.9 03/14/25 20:00 Room Air* 0 21 Total Intake and Output 03/14/25 03/14/25 03/15/25 15:00 23:00 07:00 Intake Total 100 ml 100 ml Balance 100 ml 100 ml medications Current Medications Medications Dose Ordered Sig/Hao Route Start Time Stop Time Status Last Admin Dose Admin Ondansetron HCl 4 mg Q4HP PRN IV 03/10/25 14:15 Acetaminophen 650 mg Q6HP PRN PO 03/10/25 14:15 03/12/25 23:20 650 MG Metronidazole 100 ml @ 100 mls/hr Q8HR IV 03/10/25 22:00 03/14/25 22:27 100 MLS/HR Levothyroxine Sodium 175 mcg QAM@0600 PO 03/11/25 06:00 03/14/25 05:30 175 MCG Ergocalciferol 50,000 unit Q7D PO 03/11/25 11:15 03/11/25 12:59 50,000 UNIT Cyanocobalamin 1,000 mcg DAILY PO 03/12/25 10:00 Enoxaparin Sodium 40 mg DAILY SC 03/12/25 10:00 03/14/25 08:54 40 MG Pantoprazole Sodium 40 mg DAILY@0600 PO 03/12/25 06:00 03/14/25 05:30 40 MG Piperacillin Sod/ Tazobactam Sod 100 ml @ 25 mls/hr Q8H IV 03/11/25 23:00 03/14/25 23:00 25 MLS/HR Amino Acids 0 ml @ 0 mls/hr PER PHARMACY IV 03/14/25 16:30 UNV Sodium Chloride 1,000 ml @ 75 mls/hr [id number] IV 03/14/25 16:30 Ketorolac Tromethamine 15 mg Q6HPRN PRN IV 03/14/25 16:45 03/19/25 16:44 UNV Amino Acids/ Electrolytes/ Dextrose 1,000 ml @ 42 mls/hr DAILY@2200 IV 03/14/25 22:00 03/14/25 22:00 42 MLS/HR Hydromorphone HCl 0.25 mg Q8HPRN PRN IV 03/15/25 07:00 Hold Diagnostic Test (Pha) 1 strip Q6HR 03/15/25 12:00 Insulin Human Regular FOLLOW SLIDING SCALE Q6HR SC 03/15/25 12:00 Dextrose 50 ml UD IV 03/15/25 07:15 Ketorolac Tromethamine 15 mg Q6HPRN PRN IV 03/15/25 09:00 03/20/25 08:59 Examination General Appearance: Alert, Oriented X3, Cooperative. Mild distress. HEENT: Atraumatic, PERRLA, EOMI, Mucous membrane moist/pink Respiratory: Clear to auscultation, Normal air movement Cardiovascular: Regular rate, Normal S1, Normal S2, No murmurs, no chest wall tenderness Abdominal: Protuberant abdomen, soft. There is tenderness to deep palpation on the left lower quadrant. Increasing abdominal pain in LUQ and LLQ, epigastric tenderness, mild guarding, no rigidity. bowel sounds present all 4 quadrants. Extremities: No clubbing, No cyanosis, No edema, Normal pulses, No tenderness/swelling Skin: No rashes, No breakdown, No significant lesion Neuro: Normal gait, Normal speech, Strength at 5/5 X4 ext, Normal tone, Sensation intact, Cranial nerves 3-12 NL, Reflexes 2+ Psych/Mental Status: Mental status NL, Mood NL laboratory and microbiology Laboratory Tests 03/15/25 04:50 Test 03/15/25 04:50 Range/Units Serum Glucose 92 74-106 mg/dL Microbiology Date/Time Source Procedure Growth Status 03/13/25 13:00 Stool Stool Culture - Preliminary Resulted 03/13/25 13:00 Stool Shiga Toxin I & II - Final Resulted 03/11/25 18:55 Blood Blood Culture - Preliminary NO GROWTH AFTER 72 HOURS OF INCUBATION. Resulted Labs and/or images reviewed: Labs reviewed by me, Image(s) reviewed by me Problem List/Assessment/Plan Problem List/Assessment/Plan # Sepsis due to acute diverticulitis # Acute diverticulitis of large intestine with acute perforation and abscess # Acute intractable abdominal pain, due to acute diverticulitis # Acute Diverticular disease of the distal descending colon. CT abd/pelv with contrast: extra-luminal air and small phlegmo, compatible with perforation STAT surgery consultation and NPO orders PT/PTT/INR Continue Zocyn IV continue Flagyl 500mg/100ml IV Q8h Continue IV fluids GI consult: Colonoscopy as an out patient when the diverticulitis resolve. For pain: ketorolac (can be given when the perforation is lower GI), low dose hydromorphone Blood culture: Gram Positive Cocci in clusters (Staph hominis subsp homins) #Asymptomatic acute nephrolothiasis -Nonobstructing left renal calculus measuring 2 mm. -conservative management only. -IV fluids. #Chronic Hypothyroidism. TSH: 6.51 Levothyroxine 175mcg po qd (morning, only with water) #Hepatic steatosis with hepatomegaly. LFT's HbA1c: 5.3 Diet: NPO DVT prophylaxis: Lovenox 40 subcutaneous Diet: NPO due to imminent surgery Goals of care discussed with the patient for more than 35 minutes Code Status: Full code PCP: Dr. Grupal Phagada. Case discussed with Dr. Nolasco Plan discussed with: Patient My Orders My Orders Orders - NEAL JAVED Procedure Category Date Status Time Ketorolac Injection PHA 03/15/25 In Process (Toradol Injection) 09:00 Potassium Er Tablet [facility] 03/15/25 Logged (Klor-Con Tablet) 10:15 NEAL JAVED Mar 15, 2025 10:30
--- NOTE | 2025-03-15 11:12 | DVHPN2 ---
Progress Note - Surgical Date Seen: Mar 15, 2025 Post op day Post op day: 0 Subjective Patient reports: Feels better (Patient continues to feel better, abdominal pain continues to improve, pain medicines lasting even longer now, having bowel movements, afebrile, the vital stable) Review of Systems: Deferred Objective Vital signs Vital Sign Date Time Temp Pulse Resp B/P (MAP) Pulse Ox O2 Delivery O2 Flow Rate FiO2 03/15/25 09:00 97.9 85 16 114/79 (91) 95 97.9 03/14/25 20:00 Room Air* 0 21 Total Intake and Output 03/14/25 03/14/25 03/15/25 15:00 23:00 07:00 Intake Total 100 ml 100 ml Balance 100 ml 100 ml Medications Current Medications Medications Dose Ordered Sig/Hao Route Start Time Stop Time Status Last Admin Dose Admin Ondansetron HCl 4 mg Q4HP PRN IV 03/10/25 14:15 Acetaminophen 650 mg Q6HP PRN PO 03/10/25 14:15 03/12/25 23:20 650 MG Metronidazole 100 ml @ 100 mls/hr Q8HR IV 03/10/25 22:00 03/14/25 22:27 100 MLS/HR Levothyroxine Sodium 175 mcg QAM@0600 PO 03/11/25 06:00 03/14/25 05:30 175 MCG Ergocalciferol 50,000 unit Q7D PO 03/11/25 11:15 03/11/25 12:59 50,000 UNIT Cyanocobalamin 1,000 mcg DAILY PO 03/12/25 10:00 Enoxaparin Sodium 40 mg DAILY SC 03/12/25 10:00 03/14/25 08:54 40 MG Pantoprazole Sodium 40 mg DAILY@0600 PO 03/12/25 06:00 03/14/25 05:30 40 MG Piperacillin Sod/ Tazobactam Sod 100 ml @ 25 mls/hr Q8H IV 03/11/25 23:00 03/14/25 23:00 25 MLS/HR Amino Acids 0 ml @ 0 mls/hr PER PHARMACY IV 03/14/25 16:30 UNV Sodium Chloride 1,000 ml @ 75 mls/hr [id number] IV 03/14/25 16:30 Ketorolac Tromethamine 15 mg Q6HPRN PRN IV 03/14/25 16:45 03/19/25 16:44 UNV Amino Acids/ Electrolytes/ Dextrose 1,000 ml @ 42 mls/hr DAILY@2200 IV 03/14/25 22:00 03/14/25 22:00 42 MLS/HR Hydromorphone HCl 0.25 mg Q8HPRN PRN IV 03/15/25 07:00 Hold Diagnostic Test (Pha) 1 strip Q6HR 03/15/25 12:00 Insulin Human Regular FOLLOW SLIDING SCALE Q6HR SC 03/15/25 12:00 Dextrose 50 ml UD IV 03/15/25 07:15 Ketorolac Tromethamine 15 mg Q6HPRN PRN IV 03/15/25 09:00 03/20/25 08:59 Laboratory Laboratory Tests 03/15/25 04:50 Test 03/15/25 04:50 Range/Units Serum Glucose 92 74-106 mg/dL Microbiology Date/Time Source Procedure Growth Status 03/13/25 13:00 Stool Stool Culture - Preliminary Resulted 03/13/25 13:00 Stool Shiga Toxin I & II - Final Resulted 03/11/25 18:55 Blood Blood Culture - Preliminary NO GROWTH AFTER 72 HOURS OF INCUBATION. Resulted Examination: GENERAL:Normal (Alert awake and oriented x3), LUNGS:Normal (Nonlabored breathing with symmetric expansion), ABDOMEN:Normal (Large pannus, soft, depressible, mild left flank tenderness, no rebound, no guarding) Labs and/or images reviewed: Labs reviewed by me (No leukocytosis) Problem List/Assessment/Plan Assessment and Plan Mrs. Landeros is a 40-year-old female who has been admitted for several days in the hospital due to acute diverticulitis. Patient had a repeat CT today due to increase in leukocytosis to 16.8 from 12.8, CT shows Izabella descending colon phlegmon with air in the left retroperitoneum, this likely is due to micro perforation of the left colon as there is no fluid collections. Given that the patient is not septic, has only occasional tachycardic episode to the low 100s, I will continue with non op management with bowel rest and IV antibiotics, at this point. I explained to the patient that if her condition worsened and became peritonitic, then she will go to the operating room for colon resection and end colostomy. I also explained to the patient that even if nonoperative management was successful, she is still high risk for getting an abscess due to the bacterial translocation from the perforation. Patient agreed with the surgical plan. Interval: Patient's condition continues to improve, she is afebrile with stable vital signs, no leukocytosis pain keeps improving. I will still keep the patient NPO. 1. NPO except for meds with small sip of water 2. IV Zosyn 3. Pain and nausea control 4. Out of bed and ambulate 5. A.m. labs Plan discussed with Plan discussed with: Patient Visit Coding Surgery Date of Service if different f: Mar 15, 2025 Billing Provider: TOBI BENNETT MD Surgery Visit Codes: [id number] INP/OBS CARE(HIGH) TOBI BENNETT MD Mar 15, 2025 11:12
[2025-03-15] MEDS: POTASSIUM CHL 20 Meq TABLET PO ONE (11:22)
[2025-03-15] MEDS: ACCU-CHEK COMFORT CURVE STRIP VI SCH (12:00)
[2025-03-15] MEDS: InsuLIN REG 1unit/0.01ml Soln (100units/ml) SC SCH (12:00)
[2025-03-15] MEDS: PIPERACILLIN-TAZOB 3.375GM 100 ML IV SCH (17:17)
[2025-03-15] MEDS ORDERED: PIPERACILLIN-TAZOB 3.375GM 100 ML IV SCH (17:30)
[2025-03-15] MEDS: HYDROmorphone HCL 2 MG/ML VL/or syr IV PRN (18:16)
[2025-03-16] VITALS (8 sets, daily range): BP systolic 116–135; BP diastolic 70–89; PULSE 72–100; RESP 17–20; TEMP 97.9–98.7; O2SAT 92–97
[2025-03-16 05:34] LABS: Hematocrit 35.9 % (36.0-46.0); Hemoglobin 11.9 g/dL (12.2-16.2); Mean Corpuscular Hemoglobin 28.7 pg (28.0-32.0); Mean Corpuscular Volume 86.6 fL (80.0-100.0); Nucleated Red Blood Cells % 0.0 %
[2025-03-16 05:46] LABS: Anion Gap 10 (5-15); Carbon Dioxide 28 mmol/L (20-31); Chloride 103 mmol/L (98-107); Sodium 141 mmol/L (136-145)
[2025-03-16 05:47] LABS: Calcium 8.8 mg/dL (8.7-10.4); Potassium 3.4 mmol/L (3.5-5.1)
[2025-03-16 05:51] LABS: Glucose 89 mg/dL (74-106)
[2025-03-16 05:52] LABS: BUN/Creatinine Ratio 10.3 (10.0-20.0); Blood Urea Nitrogen 9 mg/dL (9-23)
[2025-03-16 05:53] LABS: Magnesium 2.1 mg/dL (1.6-2.6)
[2025-03-16] MEDS: POTASSIUM CHL 20 Meq TABLET PO ONE (06:57)
--- NOTE | 2025-03-16 11:57 | DVHPN2 ---
Progress Note - Surgical Date Seen: Mar 16, 2025 Post op day Post op day: 0 Subjective Patient reports: Feels better (No new complaints, afebrile with vital stable, having multiple bowel movements without bleeding, very minimal pain complaints on the left flank area.) Review of Systems: Deferred Objective Vital signs Vital Sign Date Time Temp Pulse Resp B/P (MAP) Pulse Ox O2 Delivery O2 Flow Rate FiO2 03/16/25 08:30 97.9 74 17 124/83 (97) 92 97.9 03/16/25 08:00 Room Air* 0 21 Total Intake and Output 03/15/25 03/15/25 03/16/25 15:00 23:00 07:00 Intake Total 325 ml 100 ml Balance 325 ml 100 ml Medications Current Medications Medications Dose Ordered Sig/Hao Route Start Time Stop Time Status Last Admin Dose Admin Ondansetron HCl 4 mg Q4HP PRN IV 03/10/25 14:15 Metronidazole 100 ml @ 100 mls/hr Q8HR IV 03/10/25 22:00 03/16/25 05:07 100 MLS/HR Levothyroxine Sodium 175 mcg QAM@0600 PO 03/11/25 06:00 03/16/25 06:57 175 MCG Ergocalciferol 50,000 unit Q7D PO 03/11/25 11:15 03/11/25 12:59 50,000 UNIT Cyanocobalamin 1,000 mcg DAILY PO 03/12/25 10:00 Enoxaparin Sodium 40 mg DAILY SC 03/12/25 10:00 03/14/25 08:54 40 MG Amino Acids 0 ml @ 0 mls/hr PER PHARMACY IV 03/14/25 16:30 Sodium Chloride 1,000 ml @ 75 mls/hr [id number] IV 03/14/25 16:30 03/16/25 08:30 75 MLS/HR Ketorolac Tromethamine 15 mg Q6HPRN PRN IV 03/14/25 16:45 03/19/25 16:44 UNV Amino Acids/ Electrolytes/ Dextrose 1,000 ml @ 42 mls/hr DAILY@2200 IV 03/14/25 22:00 03/15/25 22:00 42 MLS/HR Diagnostic Test (Pha) 1 strip Q6HR 03/15/25 12:00 03/16/25 06:13 1 STRIP Insulin Human Regular FOLLOW SLIDING SCALE Q6HR SC 03/15/25 12:00 Dextrose 50 ml UD IV 03/15/25 07:15 Ketorolac Tromethamine 15 mg Q6HPRN PRN IV 03/15/25 09:00 03/20/25 08:59 Hold Piperacillin Sod/ Tazobactam Sod 100 ml @ 25 mls/hr Q6H IV 03/15/25 17:30 03/16/25 06:02 25 MLS/HR Acetaminophen 650 mg Q6HR PO 03/16/25 18:00 UNV Acetaminophen/ Hydrocodone Bitart 1 tab Q6HPRN PRN PO 03/16/25 11:30 UNV Acetaminophen/ Hydrocodone Bitart 1 tab Q6HP PRN PO 03/16/25 11:30 UNV Hydromorphone HCl 0.25 mg Q6HPRN PRN IV 03/16/25 11:30 UNV Laboratory Laboratory Tests 03/16/25 04:51 Test 03/16/25 04:51 Range/Units Serum Glucose 89 74-106 mg/dL Microbiology Date/Time Source Procedure Growth Status 03/13/25 13:00 Stool Stool Culture - Final Complete 03/13/25 13:00 Stool Shiga Toxin I & II - Final Complete 03/11/25 18:55 Blood Blood Culture - Preliminary NO GROWTH AFTER 72 HOURS OF INCUBATION. Resulted Examination: GENERAL:Normal (AAO x3), LUNGS:Normal (Unlabored breathing with symmetric expansion), ABDOMEN:Normal (Large pannus, soft, depressible, very mild left flank tenderness no rebound, no guarding) Labs and/or images reviewed: Labs reviewed by me (No leukocytosis) Problem List/Assessment/Plan Assessment and Plan Mrs. Landeros is a 40-year-old female who has been admitted for several days in the hospital due to acute diverticulitis. Patient had a repeat CT today due to increase in leukocytosis to 16.8 from 12.8, CT shows Izabella descending colon phlegmon with air in the left retroperitoneum, this likely is due to micro perforation of the left colon as there is no fluid collections. Given that the patient is not septic, has only occasional tachycardic episode to the low 100s, I will continue with non op management with bowel rest and IV antibiotics, at this point. I explained to the patient that if her condition worsened and became peritonitic, then she will go to the operating room for colon resection and end colostomy. I also explained to the patient that even if nonoperative management was successful, she is still high risk for getting an abscess due to the bacterial translocation from the perforation. Patient agreed with the surgical plan. Interval: Patient's condition continues to improve, she is afebrile with stable vital signs, no leukocytosis, pain keeps improving. We will keep the patient NPO today with plans on starting her on a clear liquid diet tomorrow. 1. NPO except for meds with small sip of water 2. IV Zosyn 3. Pain and nausea control 4. Out of bed and ambulate 5. A.m. labs My Orders My Orders Orders - TOBI BENNETT MD Procedure Category Date Status Time Acetaminophen Tablet PHA 03/16/25 Logged (Tylenol Tablet) 18:00 Hydrocodone-Acet PHA 03/16/25 Logged 5/325mg Tab ([place] 11:30 Hydrocodone-Acet PHA 03/16/25 Logged 10/325mg Tab ([place] 11:30 Hydromorphone PHA 03/16/25 Logged Injection (Dilaud[place] 11:30 Plan discussed with Plan discussed with: Patient, Spouse Visit Coding Surgery Date of Service if different f: Mar 16, 2025 Billing Provider: TOBI BENNETT MD Surgery Visit Codes: [id number] INP/OBS CARE(HIGH) TOBI BENNETT MD Mar 16, 2025 11:57
[2025-03-16] MEDS: HYDROcodone-ACET 5/325MG TAB PO PRN (13:11)
--- NOTE | 2025-03-16 17:24 | DVHPNRES ---
Progress Note Date Seen: Mar 16, 2025 Resident Creating Document: NEAL JAVED RESIDENT Has the PT tested + for MRSA If YES, has PT been informed?: No Medical Necessity Reason Pt with a Central, PICC or Fol: No Subjective Review of Systems Lindsey Keller is a 40-year-old female patient with past medical history of hypothyroidism and obesity. The patient came to the [facility] with chief complaint of 1 day of abdominal pain, 4/10 localized on the LLQ, sharp-like, no irradiation, with no alleviating or aggravating factors, associated with nausea. The patient reports this is first time episode. The patient report her abdominal pain worsen to 8/10 in a couple of hours, this prompted her visit to the ED. The patient denies fever, chills, vomit, diarrhea or constipation. In the ED, the CT abdomen showed: Diverticulitis of the distal descending colon. Hepatic steatosis, hepatomegaly. No hydronephrosis. Nonobstructing left renal calculus measuring 2 mm. The WBC were: 11.3. The patient was admitted for further diagnosed and management. Past Medical History: Hypothyroidism Past Surgical History: Cholecystectomy, Family History: Noncontributory Social History: Smoke: No. Alcohol: none. Drugs: None. Lives: with [facility] course: On 03/11/25, the patient was evaluated an examined at the bedside. Patient's VS, labs and chart were reviewed. WBC still elevated. The patient reports her abdominal pain has improved to 3/10 after analgesia, nausea has resolved. The patient continues with IV antibiotics: Sozyn and metronidazole. Ceftriaxone was stopped. A GI consult was placed. The patient has asymptomatic 2mm renal calculi, non obstructive, at this moment will be only monitoring. The patient continues tolerating well clear liquid diet. We will continue monitoring the progress of this patient. On 03/12/25, the patient was seen and examined on the bedside. She is alert oriented x3. Complaint of left lower quadrant abdominal pain but denies and nausea vomiting. On 03/13/25, the patient was examined and evaluated at bedside. VS, labs and chart was reviewed. WBC are still trending up despite IV antibiotic Zocyn. The patient reports persistent LLQ abdominal pain 8/10, a new CT abd/pelv with contrast was ordered and showed critical finding: Persistent inflammatory changes at the descending colon with new surrounding large volume extra-luminal air and small phlegmon. There is also air also extending into the left upper abdomen and posterior mediastinum. These findings are consistent with diverticulitis with perforation. Recommend surgery consulatation. A STAT surgical consult was placed and the patient was placed on NPO. The patient's case was presented via phone to Dr. Samaniego ([facility]) who report he will come to see the patient. I have spoken with the patient and family member about the findings and addressed their concerns and questions to the best of my abilities, and other questions will be answer by the surgeon. We are waiting on surgeon orders. We will continue monitoring this patient progress closely. On 03/14/25, the patient reports feeling better and is having non-bloody bowel movements. She still has left-sided abdominal pain, but the pain has diminished in intensity. The patient will remain NPO for at least three days and continue intravenous antibiotics. There is no plan for surgery at this time because the patient is not peritonitic and vital signs are within normal limits. Intravenous Zosyn will be continued. Pain and nausea will be controlled. The patient will be encouraged to get out of bed and ambulate. Morning labs will be obtained. On 03/15/25, the patient was seen and examined at bedside. Overnight events were reviewed. The patient reports improvement in her symptoms. On examination, mild guarding noted without rigidity. Keep patient NPO. Surgeon recommends conservative management and close observation. Follow-up closely and adjust treatment per surgical recommendations. On 03/16/25, The patient reports feeling better today with no new complaints. She is afebrile and her vital signs are stable. She has had multiple bowel movements without bleeding and reports very minimal pain in the left flank area. The patients condition continues to improve; she remains afebrile with stable vital signs and no leukocytosis. Her pain is improving. We will keep the patient NPO today with plans to start her on a clear liquid diet tomorrow. ROS: Constitutional: denies: chills, diaphoresis, fatigue, fever, malaise, sweats, weakness, others EENTM: denies: blurred vision, double vision, ear bleeding, ear discharge, ear drainage, ear pain, ear ringing, eye pain, eye redness, hearing loss, mouth pain, mouth swelling, nasal discharge, nose bleeding, nose congestion, nose pain, photophobia, tearing, throat pain, throat swelling, voice changes, others Respiratory: denies: cough, hemoptysis, orthopnea, SOB at rest, shortness of breath, SOB with excertion, stridor, wheezing, others Cardiovascular: denies: chest pain, dizzy spells, diaphoresis, Dyspnea on exertion, edema, irregular heart beat, left arm pain, lightheadedness, palpitations, PND, syncope, others Gastrointestinal: reports: Abdominal pain has increased 11/04. Genitourinary: denies: burning, dysuria, flank pain, frequency, hematuria, incontinence, penile discharge, penile sore, pain, testicle pain, testicle swelling, urgency, others Neurological: reports: No headache; denies: dizziness, fainting, left sided numbness, left sided weakness, numbness, paresthesia, pre-existing deficit, right sided numbness, right sided weakness, seizure, speech problems, tingling, tremors, weakness, others Musculoskeletal: denies: back pain, gout, joint pain, joint swelling, muscle pain, muscle stiffness, neck pain, others Integumetry: denies: bruises, change in color, change in hair/nails, dryness, laceration, lesions, lumps, rash, wounds, others Allergic/Immunocompromised: denies: Difficulty Healing, Frequent Infections, Hives, Itching, others Hematologic/Lymphatic: denies: anemia, blood clots, easy bleeding, easy bruising, swollen glands, others Endocrine: denies: excessive hunger, excessive sweating, excessive thirst, excessive urination, flushing, intolerance to cold, intolerance to heat, unexplained weight gain, unexplained weight loss, others Psychiatric: denies: anxiety, bipolar disorder, depression, hopeless, panic disorder, schizophrenia, sleepless, suicidal, others All Other Systems: Reviewed and Negative Objective vital signs Vital Sign Date Time Temp Pulse Resp B/P (MAP) Pulse Ox O2 Delivery O2 Flow Rate FiO2 03/16/25 17:00 98.3 72 17 124/70 (88) 96 98.3 03/16/25 08:00 Room Air* 0 21 Total Intake and Output 03/15/25 03/15/25 03/16/25 15:00 23:00 07:00 Intake Total 325 ml 100 ml Balance 325 ml 100 ml medications Current Medications Medications Dose Ordered Sig/Hao Route Start Time Stop Time Status Last Admin Dose Admin Ondansetron HCl 4 mg Q4HP PRN IV 03/10/25 14:15 Metronidazole 100 ml @ 100 mls/hr Q8HR IV 03/10/25 22:00 03/16/25 14:37 100 MLS/HR Levothyroxine Sodium 175 mcg QAM@0600 PO 03/11/25 06:00 03/16/25 06:57 175 MCG Ergocalciferol 50,000 unit Q7D PO 03/11/25 11:15 03/11/25 12:59 50,000 UNIT Cyanocobalamin 1,000 mcg DAILY PO 03/12/25 10:00 Enoxaparin Sodium 40 mg DAILY SC 03/12/25 10:00 03/14/25 08:54 40 MG Amino Acids 0 ml @ 0 mls/hr PER PHARMACY IV 03/14/25 16:30 Sodium Chloride 1,000 ml @ 75 mls/hr [id number] IV 03/14/25 16:30 03/16/25 08:30 75 MLS/HR Ketorolac Tromethamine 15 mg Q6HPRN PRN IV 03/14/25 16:45 03/19/25 16:44 UNV Amino Acids/ Electrolytes/ Dextrose 1,000 ml @ 42 mls/hr DAILY@2200 IV 03/14/25 22:00 03/15/25 22:00 42 MLS/HR Diagnostic Test (Pha) 1 strip Q6HR 03/15/25 12:00 03/16/25 06:13 1 STRIP Insulin Human Regular FOLLOW SLIDING SCALE Q6HR SC 03/15/25 12:00 Dextrose 50 ml UD IV 03/15/25 07:15 Ketorolac Tromethamine 15 mg Q6HPRN PRN IV 03/15/25 09:00 03/20/25 08:59 Hold Piperacillin Sod/ Tazobactam Sod 100 ml @ 25 mls/hr Q6H IV 03/15/25 17:30 03/16/25 12:08 25 MLS/HR Acetaminophen 650 mg Q6HR PO 03/16/25 18:00 Acetaminophen/ Hydrocodone Bitart 1 tab Q6HPRN PRN PO 03/16/25 11:30 03/16/25 13:11 1 TAB Acetaminophen/ Hydrocodone Bitart 1 tab Q6HP PRN PO 03/16/25 11:30 Hydromorphone HCl 0.25 mg Q6HPRN PRN IV 03/16/25 11:30 Examination General Appearance: Alert, Oriented X3, Cooperative. Mild distress. HEENT: Atraumatic, PERRLA, EOMI, Mucous membrane moist/pink Respiratory: Clear to auscultation, Normal air movement Cardiovascular: Regular rate, Normal S1, Normal S2, No murmurs, no chest wall tenderness Abdominal: Protuberant abdomen, soft. There is tenderness to deep palpation on the left lower quadrant. Increasing abdominal pain in LUQ and LLQ, epigastric tenderness, mild guarding, no rigidity. bowel sounds present all 4 quadrants. Extremities: No clubbing, No cyanosis, No edema, Normal pulses, No tenderness/swelling Skin: No rashes, No breakdown, No significant lesion Neuro: Normal gait, Normal speech, Strength at 5/5 X4 ext, Normal tone, Sensation intact, Cranial nerves 3-12 NL, Reflexes 2+ Psych/Mental Status: Mental status NL, Mood NL laboratory and microbiology Laboratory Tests 03/16/25 04:51 Test 03/16/25 04:51 Range/Units Serum Glucose 89 74-106 mg/dL Microbiology Date/Time Source Procedure Growth Status 03/13/25 13:00 Stool Stool Culture - Final Complete 03/13/25 13:00 Stool Shiga Toxin I & II - Final Complete 03/11/25 18:55 Blood Blood Culture - Preliminary NO GROWTH AFTER 72 HOURS OF INCUBATION. Resulted Labs and/or images reviewed: Labs reviewed by me, Image(s) reviewed by me Problem List/Assessment/Plan Problem List/Assessment/Plan # Sepsis due to acute diverticulitis # Acute diverticulitis of large intestine with acute perforation and abscess # Acute intractable abdominal pain, due to acute diverticulitis # Acute Diverticular disease of the distal descending colon. CT abd/pelv with contrast: extra-luminal air and small phlegmo, compatible with perforation STAT surgery consultation and NPO orders PT/PTT/INR Continue Zocyn IV continue Flagyl 500mg/100ml IV Q8h Continue IV fluids GI consult: Colonoscopy as an out patient when the diverticulitis resolve. For pain: ketorolac (can be given when the perforation is lower GI), low dose hydromorphone Blood culture: Gram Positive Cocci in clusters (Staph hominis subsp homins) #Asymptomatic acute nephrolothiasis -Nonobstructing left renal calculus measuring 2 mm. -conservative management only. -IV fluids. #Chronic Hypothyroidism. TSH: 6.51 Levothyroxine 175mcg po qd (morning, only with water) #Hepatic steatosis with hepatomegaly. LFT's HbA1c: 5.3 Diet: NPO, Clinimix DVT prophylaxis: Lovenox 40 subcutaneous Goals of care discussed with the patient for more than 35 minutes Code Status: Full code PCP: Dr. Aubree Byers. Case discussed with Dr. Mercedes Plan discussed with: Patient Dietary Evaluation Review Comments: Assessment: Patient currently receiving amino acid solution for nutrition support. High risk for malnutrition; EN/GI access status pending. Intervention: Continue amino acid support: Provides 42.5 g protein and 510 kcal daily, meeting needs at 42.5% Protein, 34% energy. If NPO > 7 days and EN/GI not accessible or medically unfeasible: Consider TPN per pharmacy to meet 100% of estimated needs: Protein: 100 g, Energy: ~1500 kcal When EN/GI becomes feasible: Advance to soft diet texture as tolerated. Monitoring & Follow-Up: Daily labs (electrolytes, renal function, glucose). Reassess nutrition plan based on GI status and clinical progress Expected Outcomes/Goals: Recovered GI function, advance to diet, weight management upon D/C Food and Nutrition Intake (Sev: <50% est energy req 5days Fluid Accumulation (N/A): N/A Protein Calorie Malnutrition: N/A Is there a minimum of two crit: No TELLO,NEAL RESIDENT Mar 16, 2025 17:24
[2025-03-16] MEDS: ACETAMINOPHEN 325 MG TAB PO SCH (18:00)
[2025-03-16] MEDS: HYDROcodone-ACET 10/325MG TAB PO PRN (20:48)
[2025-03-17] VITALS (8 sets, daily range): BP systolic 107–147; BP diastolic 55–75; PULSE 73–90; RESP 16–20; TEMP 97.9–98.7; O2SAT 91–100
[2025-03-17] MEDS: HYDROmorphone HCL 2 MG/ML VL/or syr IV PRN (00:47)
[2025-03-17] MEDS: POTASSIUM CHL 20MEQ/100ML 100 ML IV ONE (08:30)
[2025-03-17 08:58] LABS: Hematocrit 37.8 % (36.0-46.0); Hemoglobin 12.7 g/dL (12.2-16.2); Mean Corpuscular Hemoglobin 29.7 pg (28.0-32.0); Mean Corpuscular Volume 88.2 fL (80.0-100.0); Nucleated Red Blood Cells % 0.1 %
[2025-03-17] MEDS: POTASSIUM CHL 20 Meq TABLET PO ONE (10:22)
--- NOTE | 2025-03-17 12:33 | DVHPN2 ---
Progress Note - Surgical Date Seen: Mar 17, 2025 Post op day Post op day: 0 Subjective Patient reports: Feels better (Patient continues to feel good, started on clear liquid diet this morning and tolerating, having bowel movements, afebrile with vital stable.) Review of Systems: Deferred Objective Vital signs Vital Sign Date Time Temp Pulse Resp B/P (MAP) Pulse Ox O2 Delivery O2 Flow Rate FiO2 03/17/25 09:00 98.0 73 20 125/75 (92) 96 98.0 03/17/25 08:00 Room Air* 0 21 Total Intake and Output 03/16/25 03/16/25 03/17/25 15:00 23:00 07:00 Intake Total 400 ml 100 ml 0 ml Balance 400 ml 100 ml 0 ml Medications Current Medications Medications Dose Ordered Sig/Hao Route Start Time Stop Time Status Last Admin Dose Admin Ondansetron HCl 4 mg Q4HP PRN IV 03/10/25 14:15 Metronidazole 100 ml @ 100 mls/hr Q8HR IV 03/10/25 22:00 03/17/25 05:04 100 MLS/HR Levothyroxine Sodium 175 mcg QAM@0600 PO 03/11/25 06:00 03/17/25 05:05 175 MCG Ergocalciferol 50,000 unit Q7D PO 03/11/25 11:15 03/11/25 12:59 50,000 UNIT Cyanocobalamin 1,000 mcg DAILY PO 03/12/25 10:00 03/17/25 09:13 1,000 MCG Enoxaparin Sodium 40 mg DAILY SC 03/12/25 10:00 03/14/25 08:54 40 MG Amino Acids 0 ml @ 0 mls/hr PER PHARMACY IV 03/14/25 16:30 Sodium Chloride 1,000 ml @ 75 mls/hr [id number] IV 03/14/25 16:30 03/16/25 22:28 75 MLS/HR Ketorolac Tromethamine 15 mg Q6HPRN PRN IV 03/14/25 16:45 03/19/25 16:44 UNV Amino Acids/ Electrolytes/ Dextrose 1,000 ml @ 42 mls/hr DAILY@2200 IV 03/14/25 22:00 03/16/25 22:28 42 MLS/HR Diagnostic Test (Pha) 1 strip Q6HR 03/15/25 12:00 03/17/25 05:06 1 STRIP Insulin Human Regular FOLLOW SLIDING SCALE Q6HR SC 03/15/25 12:00 Dextrose 50 ml UD IV 03/15/25 07:15 Ketorolac Tromethamine 15 mg Q6HPRN PRN IV 03/15/25 09:00 03/20/25 08:59 Hold Piperacillin Sod/ Tazobactam Sod 100 ml @ 25 mls/hr Q6H IV 03/15/25 17:30 03/17/25 06:39 25 MLS/HR Acetaminophen 650 mg Q6HR PO 03/16/25 18:00 Acetaminophen/ Hydrocodone Bitart 1 tab Q6HPRN PRN PO 03/16/25 11:30 03/16/25 13:11 1 TAB Acetaminophen/ Hydrocodone Bitart 1 tab Q6HP PRN PO 03/16/25 11:30 03/16/25 20:48 1 TAB Hydromorphone HCl 0.25 mg Q6HPRN PRN IV 03/16/25 11:30 03/17/25 00:47 0.25 MG Laboratory Laboratory Tests 03/17/25 08:15 Test 03/17/25 09:53 Range/Units Serum Glucose Pending Microbiology Date/Time Source Procedure Growth Status 03/13/25 13:00 Stool Stool Culture - Final Complete 03/13/25 13:00 Stool Shiga Toxin I & II - Final Complete 03/11/25 18:55 Blood Blood Culture - Final NO GROWTH AFTER 5 DAYS OF INCUBATION. Complete Examination: GENERAL:Normal (AAO x3), LUNGS:Normal (Nonlabored breathing with symmetric expansion), ABDOMEN:Normal (Large pannus, soft, depressible, nontender) Labs and/or images reviewed: Labs reviewed by me (No leukocytosis) Problem List/Assessment/Plan Assessment and Plan Mrs. Landeros is a 40-year-old female who has been admitted for several days in the hospital due to acute diverticulitis. Patient had a repeat CT today due to increase in leukocytosis to 16.8 from 12.8, CT shows Izabella descending colon phlegmon with air in the left retroperitoneum, this likely is due to micro perforation of the left colon as there is no fluid collections. Given that the patient is not septic, has only occasional tachycardic episode to the low 100s, I will continue with non op management with bowel rest and IV antibiotics, at this point. I explained to the patient that if her condition worsened and became peritonitic, then she will go to the operating room for colon resection and end colostomy. I also explained to the patient that even if nonoperative management was successful, she is still high risk for getting an abscess due to the bacterial translocation from the perforation. Patient agreed with the surgical plan. Interval: Patient continues to do well, was started on clears this morning and tolerating, having bowel movements, ambulating, afebrile vitals stable. Continue clear liquid diet for today, if patient tolerates she can start getting advanced tomorrow. 1. Clear liquid diet for today 2. IV Zosyn 3. Pain and nausea control 4. Out of bed and ambulate 5. A.m. labs My Orders My Orders Orders - TOBI BENNETT MD Procedure Category Date Status Time Comprehensive LAB 03/17/25 Logged Metabolic Panel 04:00 Plan discussed with Plan discussed with: Patient Visit Coding Surgery Date of Service if different f: Mar 17, 2025 Billing Provider: TOBI BENNETT MD Surgery Visit Codes: [id number] INP/OBS CARE(HIGH) TOBI BENNETT MD Mar 17, 2025 12:33
--- NOTE | 2025-03-17 16:17 | DVHPNRES ---
Progress Note Date Seen: Mar 17, 2025 Resident Creating Document: NEAL JAVED RESIDENT Has the PT tested + for MRSA If YES, has PT been informed?: No Medical Necessity Reason Pt with a Central, PICC or Fol: No Subjective Review of Systems Lindsey Keller is a 40-year-old female patient with past medical history of hypothyroidism and obesity. The patient came to the [facility] with chief complaint of 1 day of abdominal pain, 4/10 localized on the LLQ, sharp-like, no irradiation, with no alleviating or aggravating factors, associated with nausea. The patient reports this is first time episode. The patient report her abdominal pain worsen to 8/10 in a couple of hours, this prompted her visit to the ED. The patient denies fever, chills, vomit, diarrhea or constipation. In the ED, the CT abdomen showed: Diverticulitis of the distal descending colon. Hepatic steatosis, hepatomegaly. No hydronephrosis. Nonobstructing left renal calculus measuring 2 mm. The WBC were: 11.3. The patient was admitted for further diagnosed and management. Past Medical History: Hypothyroidism Past Surgical History: Cholecystectomy, Family History: Noncontributory Social History: Smoke: No. Alcohol: none. Drugs: None. Lives: with [facility] course: On 03/11/25, the patient was evaluated an examined at the bedside. Patient's VS, labs and chart were reviewed. WBC still elevated. The patient reports her abdominal pain has improved to 3/10 after analgesia, nausea has resolved. The patient continues with IV antibiotics: Sozyn and metronidazole. Ceftriaxone was stopped. A GI consult was placed. The patient has asymptomatic 2mm renal calculi, non obstructive, at this moment will be only monitoring. The patient continues tolerating well clear liquid diet. We will continue monitoring the progress of this patient. On 03/12/25, the patient was seen and examined on the bedside. She is alert oriented x3. Complaint of left lower quadrant abdominal pain but denies and nausea vomiting. On 03/13/25, the patient was examined and evaluated at bedside. VS, labs and chart was reviewed. WBC are still trending up despite IV antibiotic Zocyn. The patient reports persistent LLQ abdominal pain 8/10, a new CT abd/pelv with contrast was ordered and showed critical finding: Persistent inflammatory changes at the descending colon with new surrounding large volume extra-luminal air and small phlegmon. There is also air also extending into the left upper abdomen and posterior mediastinum. These findings are consistent with diverticulitis with perforation. Recommend surgery consulatation. A STAT surgical consult was placed and the patient was placed on NPO. The patient's case was presented via phone to Dr. Samaniego ([facility]) who report he will come to see the patient. I have spoken with the patient and family member about the findings and addressed their concerns and questions to the best of my abilities, and other questions will be answer by the surgeon. We are waiting on surgeon orders. We will continue monitoring this patient progress closely. On 03/14/25, the patient reports feeling better and is having non-bloody bowel movements. She still has left-sided abdominal pain, but the pain has diminished in intensity. The patient will remain NPO for at least three days and continue intravenous antibiotics. There is no plan for surgery at this time because the patient is not peritonitic and vital signs are within normal limits. Intravenous Zosyn will be continued. Pain and nausea will be controlled. The patient will be encouraged to get out of bed and ambulate. Morning labs will be obtained. On 03/15/25, the patient was seen and examined at bedside. Overnight events were reviewed. The patient reports improvement in her symptoms. On examination, mild guarding noted without rigidity. Keep patient NPO. Surgeon recommends conservative management and close observation. Follow-up closely and adjust treatment per surgical recommendations. On 03/16/25, The patient reports feeling better today with no new complaints. She is afebrile and her vital signs are stable. She has had multiple bowel movements without bleeding and reports very minimal pain in the left flank area. The patients condition continues to improve; she remains afebrile with stable vital signs and no leukocytosis. Her pain is improving. We will keep the patient NPO today with plans to start her on a clear liquid diet tomorrow. On 03/17/25, The patient continues to do well. She was started on a clear liquid diet this morning and is tolerating it without difficulty. If the patient tolerates it well, the diet can be advanced tomorrow. She is having regular bowel movements and is ambulating without issues. The patient remains afebrile and his vital signs are stable. ROS: Constitutional: denies: chills, diaphoresis, fatigue, fever, malaise, sweats, weakness, others EENTM: denies: blurred vision, double vision, ear bleeding, ear discharge, ear drainage, ear pain, ear ringing, eye pain, eye redness, hearing loss, mouth pain, mouth swelling, nasal discharge, nose bleeding, nose congestion, nose pain, photophobia, tearing, throat pain, throat swelling, voice changes, others Respiratory: denies: cough, hemoptysis, orthopnea, SOB at rest, shortness of breath, SOB with excertion, stridor, wheezing, others Cardiovascular: denies: chest pain, dizzy spells, diaphoresis, Dyspnea on exertion, edema, irregular heart beat, left arm pain, lightheadedness, palpitations, PND, syncope, others Gastrointestinal: reports: Abdominal pain has increased 11/04. Genitourinary: denies: burning, dysuria, flank pain, frequency, hematuria, incontinence, penile discharge, penile sore, pain, testicle pain, testicle swelling, urgency, others Neurological: reports: No headache; denies: dizziness, fainting, left sided numbness, left sided weakness, numbness, paresthesia, pre-existing deficit, right sided numbness, right sided weakness, seizure, speech problems, tingling, tremors, weakness, others Musculoskeletal: denies: back pain, gout, joint pain, joint swelling, muscle pain, muscle stiffness, neck pain, others Integumetry: denies: bruises, change in color, change in hair/nails, dryness, laceration, lesions, lumps, rash, wounds, others Allergic/Immunocompromised: denies: Difficulty Healing, Frequent Infections, Hives, Itching, others Hematologic/Lymphatic: denies: anemia, blood clots, easy bleeding, easy bruising, swollen glands, others Endocrine: denies: excessive hunger, excessive sweating, excessive thirst, excessive urination, flushing, intolerance to cold, intolerance to heat, unexplained weight gain, unexplained weight loss, others Psychiatric: denies: anxiety, bipolar disorder, depression, hopeless, panic disorder, schizophrenia, sleepless, suicidal, others All Other Systems: Reviewed and Negative Objective vital signs Vital Sign Date Time Temp Pulse Resp B/P (MAP) Pulse Ox O2 Delivery O2 Flow Rate FiO2 03/17/25 13:00 98.0 74 20 115/55 (75) 97 98.0 03/17/25 08:00 Room Air* 0 21 Total Intake and Output 03/16/25 03/16/25 03/17/25 15:00 23:00 07:00 Intake Total 400 ml 100 ml 0 ml Balance 400 ml 100 ml 0 ml medications Current Medications Medications Dose Ordered Sig/Hao Route Start Time Stop Time Status Last Admin Dose Admin Ondansetron HCl 4 mg Q4HP PRN IV 03/10/25 14:15 Metronidazole 100 ml @ 100 mls/hr Q8HR IV 03/10/25 22:00 03/17/25 14:07 100 MLS/HR Levothyroxine Sodium 175 mcg QAM@0600 PO 03/11/25 06:00 03/17/25 05:05 175 MCG Ergocalciferol 50,000 unit Q7D PO 03/11/25 11:15 03/11/25 12:59 50,000 UNIT Cyanocobalamin 1,000 mcg DAILY PO 03/12/25 10:00 03/17/25 09:13 1,000 MCG Enoxaparin Sodium 40 mg DAILY SC 03/12/25 10:00 03/14/25 08:54 40 MG Amino Acids 0 ml @ 0 mls/hr PER PHARMACY IV 03/14/25 16:30 Sodium Chloride 1,000 ml @ 75 mls/hr [id number] IV 03/14/25 16:30 03/17/25 11:10 75 MLS/HR Ketorolac Tromethamine 15 mg Q6HPRN PRN IV 03/14/25 16:45 03/19/25 16:44 UNV Amino Acids/ Electrolytes/ Dextrose 1,000 ml @ 42 mls/hr DAILY@2200 IV 03/14/25 22:00 03/16/25 22:28 42 MLS/HR Diagnostic Test (Pha) 1 strip Q6HR 03/15/25 12:00 03/17/25 05:06 1 STRIP Insulin Human Regular FOLLOW SLIDING SCALE Q6HR SC 03/15/25 12:00 Dextrose 50 ml UD IV 03/15/25 07:15 Ketorolac Tromethamine 15 mg Q6HPRN PRN IV 03/15/25 09:00 03/20/25 08:59 Hold Piperacillin Sod/ Tazobactam Sod 100 ml @ 25 mls/hr Q6H IV 03/15/25 17:30 03/17/25 14:07 25 MLS/HR Acetaminophen 650 mg Q6HR PO 03/16/25 18:00 Acetaminophen/ Hydrocodone Bitart 1 tab Q6HPRN PRN PO 03/16/25 11:30 03/16/25 13:11 1 TAB Acetaminophen/ Hydrocodone Bitart 1 tab Q6HP PRN PO 03/16/25 11:30 03/16/25 20:48 1 TAB Hydromorphone HCl 0.25 mg Q6HPRN PRN IV 03/16/25 11:30 03/17/25 00:47 0.25 MG Examination General Appearance: Alert, Oriented X3, Cooperative. Mild distress. HEENT: Atraumatic, PERRLA, EOMI, Mucous membrane moist/pink Respiratory: Clear to auscultation, Normal air movement Cardiovascular: Regular rate, Normal S1, Normal S2, No murmurs, no chest wall tenderness Abdominal: Protuberant abdomen, soft. There is tenderness to deep palpation on the left lower quadrant. Increasing abdominal pain in LUQ and LLQ, epigastric tenderness, mild guarding, no rigidity. bowel sounds present all 4 quadrants. Extremities: No clubbing, No cyanosis, No edema, Normal pulses, No tenderness/swelling Skin: No rashes, No breakdown, No significant lesion Neuro: Normal gait, Normal speech, Strength at 5/5 X4 ext, Normal tone, Sensation intact, Cranial nerves 3-12 NL, Reflexes 2+ Psych/Mental Status: Mental status NL, Mood NL laboratory and microbiology Laboratory Tests 03/17/25 08:15 Test 03/17/25 13:30 Range/Units Serum Glucose Pending Microbiology Date/Time Source Procedure Growth Status 03/13/25 13:00 Stool Stool Culture - Final Complete 03/13/25 13:00 Stool Shiga Toxin I & II - Final Complete 03/11/25 18:55 Blood Blood Culture - Final NO GROWTH AFTER 5 DAYS OF INCUBATION. Complete Labs and/or images reviewed: Labs reviewed by me, Image(s) reviewed by me Problem List/Assessment/Plan Problem List/Assessment/Plan # Sepsis due to acute diverticulitis # Acute diverticulitis of large intestine with acute perforation and abscess # Acute intractable abdominal pain, due to acute diverticulitis # Acute Diverticular disease of the distal descending colon. CT abd/pelv with contrast: extra-luminal air and small phlegmo, compatible with perforation STAT surgery consultation and NPO orders PT/PTT/INR Continue Zocyn IV continue Flagyl 500mg/100ml IV Q8h Continue IV fluids GI consult: Colonoscopy as an out patient when the diverticulitis resolve. For pain: ketorolac (can be given when the perforation is lower GI), low dose hydromorphone Blood culture: Gram Positive Cocci in clusters (Staph hominis subsp homins) #Asymptomatic acute nephrolothiasis -Nonobstructing left renal calculus measuring 2 mm. -conservative management only. -IV fluids. #Chronic Hypothyroidism. TSH: 6.51 Levothyroxine 175mcg po qd (morning, only with water) #Hepatic steatosis with hepatomegaly. LFT's HbA1c: 5.3 Diet: Clear liquid, Clinimix DVT prophylaxis: Lovenox 40 subcutaneous Goals of care discussed with the patient for more than 35 minutes Code Status: Full code PCP: Dr. Aubree Byers. Case discussed with Dr. Mercedes Plan discussed with: Patient Dietary Evaluation Review Comments: Assessment: Patient currently receiving amino acid solution for nutrition support. High risk for malnutrition; EN/GI access status pending. Intervention: Continue amino acid support: Provides 42.5 g protein and 510 kcal daily, meeting needs at 42.5% Protein, 34% energy. If NPO > 7 days and EN/GI not accessible or medically unfeasible: Consider TPN per pharmacy to meet 100% of estimated needs: Protein: 100 g, Energy: ~1500 kcal When EN/GI becomes feasible: Advance to soft diet texture as tolerated. Monitoring & Follow-Up: Daily labs (electrolytes, renal function, glucose). Reassess nutrition plan based on GI status and clinical progress Expected Outcomes/Goals: Recovered GI function, advance to diet, weight management upon D/C Food and Nutrition Intake (Sev: <50% est energy req 5days Fluid Accumulation (N/A): N/A Protein Calorie Malnutrition: N/A Is there a minimum of two crit: NEAL Bobby RESIDENT Mar 17, 2025 16:17
[2025-03-18] VITALS (8 sets, daily range): BP systolic 93–112; BP diastolic 63–86; PULSE 71–85; RESP 16–20; TEMP 97–98; O2SAT 95–97
[2025-03-18 09:39] LABS: Mean Corpuscular Volume 86.5 fL (80.0-100.0); Nucleated Red Blood Cells % 0.1 %
[2025-03-18 09:41] LABS: Hematocrit 39.2 % (36.0-46.0); Hemoglobin 13.3 g/dL (12.2-16.2); Mean Corpuscular Hemoglobin 29.3 pg (28.0-32.0)
[2025-03-18 09:43] LABS: Alanine Aminotransferase 13 U/L (7-40); Albumin 4.0 g/dL (3.2-4.8); Alkaline Phosphatase 98 U/L (46-116); Anion Gap 11 (5-15); BUN/Creatinine Ratio 7.5 (10.0-20.0); Bilirubin, Total 0.3 mg/dL (0.2-1.0); Calcium 9.4 mg/dL (8.7-10.4); Carbon Dioxide 27 mmol/L (20-31); Chloride 104 mmol/L (98-107); Glucose 89 mg/dL (74-106); Magnesium 2.0 mg/dL (1.6-2.6); Potassium 3.8 mmol/L (3.5-5.1); Sodium 142 mmol/L (136-145); Total Protein 7.2 g/dL (5.7-8.2)
[2025-03-18 09:44] LABS: Blood Urea Nitrogen 7 mg/dL (9-23)
--- NOTE | 2025-03-18 10:23 | DVHPN2 ---
Progress Note - Surgical Date Seen: Mar 18, 2025 Post op day Post op day: 0 Subjective Patient reports: Feels better (Patient doing very well this morning, no complaints, tolerating clear liquid diet, having bowel movements, afebrile with vital stable) Review of Systems: Deferred Objective Vital signs Vital Sign Date Time Temp Pulse Resp B/P (MAP) Pulse Ox O2 Delivery O2 Flow Rate FiO2 03/18/25 08:00 75 18 Room Air* 0 21 03/18/25 05:00 98.0 110/86 (94) 95 98.0 Total Intake and Output 03/17/25 03/17/25 03/18/25 15:00 23:00 07:00 Intake Total 800 ml 800 ml Balance 800 ml 800 ml Medications Current Medications Medications Dose Ordered Sig/Hao Route Start Time Stop Time Status Last Admin Dose Admin Ondansetron HCl 4 mg Q4HP PRN IV 03/10/25 14:15 Metronidazole 100 ml @ 100 mls/hr Q8HR IV 03/10/25 22:00 03/18/25 05:06 100 MLS/HR Levothyroxine Sodium 175 mcg QAM@0600 PO 03/11/25 06:00 03/18/25 05:07 175 MCG Ergocalciferol 50,000 unit Q7D PO 03/11/25 11:15 03/11/25 12:59 50,000 UNIT Cyanocobalamin 1,000 mcg DAILY PO 03/12/25 10:00 03/17/25 09:13 1,000 MCG Enoxaparin Sodium 40 mg DAILY SC 03/12/25 10:00 03/14/25 08:54 40 MG Amino Acids 0 ml @ 0 mls/hr PER PHARMACY IV 03/14/25 16:30 Sodium Chloride 1,000 ml @ 75 mls/hr [id number] IV 03/14/25 16:30 03/17/25 23:33 75 MLS/HR Ketorolac Tromethamine 15 mg Q6HPRN PRN IV 03/14/25 16:45 03/19/25 16:44 UNV Amino Acids/ Electrolytes/ Dextrose 1,000 ml @ 42 mls/hr DAILY@2200 IV 03/14/25 22:00 03/16/25 22:28 42 MLS/HR Diagnostic Test (Pha) 1 strip Q6HR 03/15/25 12:00 03/17/25 17:03 1 STRIP Insulin Human Regular FOLLOW SLIDING SCALE Q6HR SC 03/15/25 12:00 Dextrose 50 ml UD IV 03/15/25 07:15 Ketorolac Tromethamine 15 mg Q6HPRN PRN IV 03/15/25 09:00 03/20/25 08:59 Hold Piperacillin Sod/ Tazobactam Sod 100 ml @ 25 mls/hr Q6H IV 03/15/25 17:30 03/18/25 06:28 25 MLS/HR Acetaminophen 650 mg Q6HR PO 03/16/25 18:00 Acetaminophen/ Hydrocodone Bitart 1 tab Q6HPRN PRN PO 03/16/25 11:30 03/16/25 13:11 1 TAB Acetaminophen/ Hydrocodone Bitart 1 tab Q6HP PRN PO 03/16/25 11:30 03/16/25 20:48 1 TAB Hydromorphone HCl 0.25 mg Q6HPRN PRN IV 03/16/25 11:30 03/17/25 00:47 0.25 MG Laboratory Laboratory Tests 03/18/25 08:45 Test 03/18/25 08:45 Range/Units Serum Glucose 89 74-106 mg/dL Microbiology Date/Time Source Procedure Growth Status 03/13/25 13:00 Stool Stool Culture - Final Complete 03/13/25 13:00 Stool Shiga Toxin I & II - Final Complete 03/11/25 18:55 Blood Blood Culture - Final NO GROWTH AFTER 5 DAYS OF INCUBATION. Complete Examination: GENERAL:Normal (AAO x3), LUNGS:Normal (Nonlabored breathing with symmetric expansion), ABDOMEN:Normal (Large pannus, soft, depressible, nontender) Labs and/or images reviewed: Labs reviewed by me (No leukocytosis) Problem List/Assessment/Plan Assessment and Plan Mrs. Landeros is a 40-year-old female who has been admitted for several days in the hospital due to acute diverticulitis. Patient had a repeat CT today due to increase in leukocytosis to 16.8 from 12.8, CT shows Izabella descending colon phlegmon with air in the left retroperitoneum, this likely is due to micro perforation of the left colon as there is no fluid collections. Given that the patient is not septic, has only occasional tachycardic episode to the low 100s, I will continue with non op management with bowel rest and IV antibiotics, at this point. I explained to the patient that if her condition worsened and became peritonitic, then she will go to the operating room for colon resection and end colostomy. I also explained to the patient that even if nonoperative management was successful, she is still high risk for getting an abscess due to the bacterial translocation from the perforation. Patient agreed with the surgical plan. Interval: Patient's condition continues to improve, tolerated clear liquid diet all day yesterday, having bowel movements, ambulating. Diet we will get advanced today to full liquid diet and then to a soft bland diet. If patient tolerates then she would likely be able to get discharged tomorrow. 1. May advance diet to full liquids diet and then soft bland diet 2. IV Zosyn 3. Pain and nausea control 4. Out of bed and ambulate 5. A.m. labs Plan discussed with Plan discussed with: Patient Visit Coding Surgery Date of Service if different f: Mar 18, 2025 Billing Provider: TOBI BENNETT MD Surgery Visit Codes: [id number] INP/OBS CARE(HIGH) TOBI BENNETT MD Mar 18, 2025 10:23
--- NOTE | 2025-03-18 15:52 | DVHPNRES ---
Progress Note Date Seen: Mar 18, 2025 Resident Creating Document: NEAL JAVED RESIDENT Has the PT tested + for MRSA If YES, has PT been informed?: No Medical Necessity Reason Pt with a Central, PICC or Fol: No Subjective Review of Systems Lindsey Keller is a 40-year-old female patient with past medical history of hypothyroidism and obesity. The patient came to the [facility] with chief complaint of 1 day of abdominal pain, 4/10 localized on the LLQ, sharp-like, no irradiation, with no alleviating or aggravating factors, associated with nausea. The patient reports this is first time episode. The patient report her abdominal pain worsen to 8/10 in a couple of hours, this prompted her visit to the ED. The patient denies fever, chills, vomit, diarrhea or constipation. In the ED, the CT abdomen showed: Diverticulitis of the distal descending colon. Hepatic steatosis, hepatomegaly. No hydronephrosis. Nonobstructing left renal calculus measuring 2 mm. The WBC were: 11.3. The patient was admitted for further diagnosed and management. Past Medical History: Hypothyroidism Past Surgical History: Cholecystectomy, Family History: Noncontributory Social History: Smoke: No. Alcohol: none. Drugs: None. Lives: with [facility] course: On 03/11/25, the patient was evaluated an examined at the bedside. Patient's VS, labs and chart were reviewed. WBC still elevated. The patient reports her abdominal pain has improved to 3/10 after analgesia, nausea has resolved. The patient continues with IV antibiotics: Sozyn and metronidazole. Ceftriaxone was stopped. A GI consult was placed. The patient has asymptomatic 2mm renal calculi, non obstructive, at this moment will be only monitoring. The patient continues tolerating well clear liquid diet. We will continue monitoring the progress of this patient. On 03/12/25, the patient was seen and examined on the bedside. She is alert oriented x3. Complaint of left lower quadrant abdominal pain but denies and nausea vomiting. On 03/13/25, the patient was examined and evaluated at bedside. VS, labs and chart was reviewed. WBC are still trending up despite IV antibiotic Zocyn. The patient reports persistent LLQ abdominal pain 8/10, a new CT abd/pelv with contrast was ordered and showed critical finding: Persistent inflammatory changes at the descending colon with new surrounding large volume extra-luminal air and small phlegmon. There is also air also extending into the left upper abdomen and posterior mediastinum. These findings are consistent with diverticulitis with perforation. Recommend surgery consulatation. A STAT surgical consult was placed and the patient was placed on NPO. The patient's case was presented via phone to Dr. Samaniego ([facility]) who report he will come to see the patient. I have spoken with the patient and family member about the findings and addressed their concerns and questions to the best of my abilities, and other questions will be answer by the surgeon. We are waiting on surgeon orders. We will continue monitoring this patient progress closely. On 03/14/25, the patient reports feeling better and is having non-bloody bowel movements. She still has left-sided abdominal pain, but the pain has diminished in intensity. The patient will remain NPO for at least three days and continue intravenous antibiotics. There is no plan for surgery at this time because the patient is not peritonitic and vital signs are within normal limits. Intravenous Zosyn will be continued. Pain and nausea will be controlled. The patient will be encouraged to get out of bed and ambulate. Morning labs will be obtained. On 03/15/25, the patient was seen and examined at bedside. Overnight events were reviewed. The patient reports improvement in her symptoms. On examination, mild guarding noted without rigidity. Keep patient NPO. Surgeon recommends conservative management and close observation. Follow-up closely and adjust treatment per surgical recommendations. On 03/16/25, the patient reports feeling better today with no new complaints. She is afebrile and her vital signs are stable. She has had multiple bowel movements without bleeding and reports very minimal pain in the left flank area. The patients condition continues to improve; she remains afebrile with stable vital signs and no leukocytosis. Her pain is improving. We will keep the patient NPO today with plans to start her on a clear liquid diet tomorrow. On 03/17/25, the patient continues to do well. She was started on a clear liquid diet this morning and is tolerating it without difficulty. If the patient tolerates it well, the diet can be advanced tomorrow. She is having regular bowel movements and is ambulating without issues. The patient remains afebrile and his vital signs are stable. On 03/18/25, the patient is doing very well this morning with no complaints. She remains afebrile with stable vital signs. Her condition continues to improve and she tolerated a clear liquid diet all day yesterday. She is ambulating and having bowel movements. The diet will be advanced today to full liquids and then to a soft bland diet. If she tolerates the diet advancement, discharge is likely tomorrow. ROS: Constitutional: denies: chills, diaphoresis, fatigue, fever, malaise, sweats, weakness, others EENTM: denies: blurred vision, double vision, ear bleeding, ear discharge, ear drainage, ear pain, ear ringing, eye pain, eye redness, hearing loss, mouth pain, mouth swelling, nasal discharge, nose bleeding, nose congestion, nose pain, photophobia, tearing, throat pain, throat swelling, voice changes, others Respiratory: denies: cough, hemoptysis, orthopnea, SOB at rest, shortness of breath, SOB with excertion, stridor, wheezing, others Cardiovascular: denies: chest pain, dizzy spells, diaphoresis, Dyspnea on exertion, edema, irregular heart beat, left arm pain, lightheadedness, palpitations, PND, syncope, others Gastrointestinal: reports: Abdominal pain has increased 11/04. Genitourinary: denies: burning, dysuria, flank pain, frequency, hematuria, incontinence, penile discharge, penile sore, pain, testicle pain, testicle swelling, urgency, others Neurological: reports: No headache; denies: dizziness, fainting, left sided numbness, left sided weakness, numbness, paresthesia, pre-existing deficit, right sided numbness, right sided weakness, seizure, speech problems, tingling, tremors, weakness, others Musculoskeletal: denies: back pain, gout, joint pain, joint swelling, muscle pain, muscle stiffness, neck pain, others Integumetry: denies: bruises, change in color, change in hair/nails, dryness, laceration, lesions, lumps, rash, wounds, others Allergic/Immunocompromised: denies: Difficulty Healing, Frequent Infections, Hives, Itching, others Hematologic/Lymphatic: denies: anemia, blood clots, easy bleeding, easy bruising, swollen glands, others Endocrine: denies: excessive hunger, excessive sweating, excessive thirst, excessive urination, flushing, intolerance to cold, intolerance to heat, unexplained weight gain, unexplained weight loss, others Psychiatric: denies: anxiety, bipolar disorder, depression, hopeless, panic disorder, schizophrenia, sleepless, suicidal, others All Other Systems: Reviewed and Negative Objective vital signs Vital Sign Date Time Temp Pulse Resp B/P (MAP) Pulse Ox O2 Delivery O2 Flow Rate FiO2 03/17/25 13:00 98.0 74 20 115/55 (75) 97 98.0 03/17/25 08:00 Room Air* 0 21 Total Intake and Output 03/16/25 03/16/25 03/17/25 15:00 23:00 07:00 Intake Total 400 ml 100 ml 0 ml Balance 400 ml 100 ml 0 ml medications Current Medications Medications Dose Ordered Sig/Hao Route Start Time Stop Time Status Last Admin Dose Admin Ondansetron HCl 4 mg Q4HP PRN IV 03/10/25 14:15 Metronidazole 100 ml @ 100 mls/hr Q8HR IV 03/10/25 22:00 03/17/25 14:07 100 MLS/HR Levothyroxine Sodium 175 mcg QAM@0600 PO 03/11/25 06:00 03/17/25 05:05 175 MCG Ergocalciferol 50,000 unit Q7D PO 03/11/25 11:15 03/11/25 12:59 50,000 UNIT Cyanocobalamin 1,000 mcg DAILY PO 03/12/25 10:00 03/17/25 09:13 1,000 MCG Enoxaparin Sodium 40 mg DAILY SC 03/12/25 10:00 03/14/25 08:54 40 MG Amino Acids 0 ml @ 0 mls/hr PER PHARMACY IV 03/14/25 16:30 Sodium Chloride 1,000 ml @ 75 mls/hr [id number] IV 03/14/25 16:30 03/17/25 11:10 75 MLS/HR Ketorolac Tromethamine 15 mg Q6HPRN PRN IV 03/14/25 16:45 03/19/25 16:44 UNV Amino Acids/ Electrolytes/ Dextrose 1,000 ml @ 42 mls/hr DAILY@2200 IV 03/14/25 22:00 03/16/25 22:28 42 MLS/HR Diagnostic Test (Pha) 1 strip Q6HR 03/15/25 12:00 03/17/25 05:06 1 STRIP Insulin Human Regular FOLLOW SLIDING SCALE Q6HR SC 03/15/25 12:00 Dextrose 50 ml UD IV 03/15/25 07:15 Ketorolac Tromethamine 15 mg Q6HPRN PRN IV 03/15/25 09:00 03/20/25 08:59 Hold Piperacillin Sod/ Tazobactam Sod 100 ml @ 25 mls/hr Q6H IV 03/15/25 17:30 03/17/25 14:07 25 MLS/HR Acetaminophen 650 mg Q6HR PO 03/16/25 18:00 Acetaminophen/ Hydrocodone Bitart 1 tab Q6HPRN PRN PO 03/16/25 11:30 03/16/25 13:11 1 TAB Acetaminophen/ Hydrocodone Bitart 1 tab Q6HP PRN PO 03/16/25 11:30 03/16/25 20:48 1 TAB Hydromorphone HCl 0.25 mg Q6HPRN PRN IV 03/16/25 11:30 03/17/25 00:47 0.25 MG Examination Objective vital signs Vital Sign Date Time Temp Pulse Resp B/P (MAP) Pulse Ox O2 Delivery O2 Flow Rate FiO2 03/18/25 13:00 97.8 71 20 99/66 (77) 97 97.8 03/18/25 08:00 Room Air* 0 21 Total Intake and Output 03/17/25 03/17/25 03/18/25 15:00 23:00 07:00 Intake Total 800 ml 800 ml Balance 800 ml 800 ml medications Current Medications Medications Dose Ordered Sig/Hao Route Start Time Stop Time Status Last Admin Dose Admin Ondansetron HCl 4 mg Q4HP PRN IV 03/10/25 14:15 Metronidazole 100 ml @ 100 mls/hr Q8HR IV 03/10/25 22:00 03/18/25 14:45 100 MLS/HR Levothyroxine Sodium 175 mcg QAM@0600 PO 03/11/25 06:00 03/18/25 05:07 175 MCG Ergocalciferol 50,000 unit Q7D PO 03/11/25 11:15 03/18/25 11:57 50,000 UNIT Cyanocobalamin 1,000 mcg DAILY PO 03/12/25 10:00 03/17/25 09:13 1,000 MCG Enoxaparin Sodium 40 mg DAILY SC 03/12/25 10:00 03/14/25 08:54 40 MG Amino Acids 0 ml @ 0 mls/hr PER PHARMACY IV 03/14/25 16:30 Sodium Chloride 1,000 ml @ 75 mls/hr [id number] IV 03/14/25 16:30 03/18/25 13:50 75 MLS/HR Ketorolac Tromethamine 15 mg Q6HPRN PRN IV 03/14/25 16:45 03/19/25 16:44 UNV Amino Acids/ Electrolytes/ Dextrose 1,000 ml @ 42 mls/hr DAILY@2200 IV 03/14/25 22:00 03/16/25 22:28 42 MLS/HR Diagnostic Test (Pha) 1 strip Q6HR 03/15/25 12:00 03/17/25 17:03 1 STRIP Insulin Human Regular FOLLOW SLIDING SCALE Q6HR SC 03/15/25 12:00 Dextrose 50 ml UD IV 03/15/25 07:15 Ketorolac Tromethamine 15 mg Q6HPRN PRN IV 03/15/25 09:00 03/20/25 08:59 Hold Piperacillin Sod/ Tazobactam Sod 100 ml @ 25 mls/hr Q6H IV 03/15/25 17:30 03/18/25 11:28 25 MLS/HR Acetaminophen 650 mg Q6HR PO 03/16/25 18:00 Acetaminophen/ Hydrocodone Bitart 1 tab Q6HPRN PRN PO 03/16/25 11:30 03/16/25 13:11 1 TAB Acetaminophen/ Hydrocodone Bitart 1 tab Q6HP PRN PO 03/16/25 11:30 03/16/25 20:48 1 TAB Hydromorphone HCl 0.25 mg Q6HPRN PRN IV 03/16/25 11:30 03/17/25 00:47 0.25 MG Examination General Appearance: Alert, Oriented X3, Cooperative. Mild distress. HEENT: Atraumatic, PERRLA, EOMI, Mucous membrane moist/pink Respiratory: Clear to auscultation, Normal air movement Cardiovascular: Regular rate, Normal S1, Normal S2, No murmurs, no chest wall tenderness Abdominal: Protuberant abdomen, soft. There is tenderness to deep palpation on the left lower quadrant. Increasing abdominal pain in LUQ and LLQ, epigastric tenderness, mild guarding, no rigidity. bowel sounds present all 4 quadrants. Extremities: No clubbing, No cyanosis, No edema, Normal pulses, No tenderness/swelling Skin: No rashes, No breakdown, No significant lesion Neuro: Normal gait, Normal speech, Strength at 5/5 X4 ext, Normal tone, Sensation intact, Cranial nerves 3-12 NL, Reflexes 2+ Psych/Mental Status: Mental status NL, Mood NL laboratory and microbiology Laboratory Tests 03/18/25 08:45 Test 03/18/25 08:45 Range/Units Serum Glucose 89 74-106 mg/dL Microbiology Date/Time Source Procedure Growth Status 03/13/25 13:00 Stool Stool Culture - Final Complete 03/13/25 13:00 Stool Shiga Toxin I & II - Final Complete 03/11/25 18:55 Blood Blood Culture - Final NO GROWTH AFTER 5 DAYS OF INCUBATION. Complete Labs and/or images reviewed: Labs reviewed by me, Image(s) reviewed by me Problem List/Assessment/Plan Problem List/Assessment/Plan # Sepsis due to acute diverticulitis # Acute diverticulitis of large intestine with acute perforation and abscess # Acute intractable abdominal pain, due to acute diverticulitis # Acute Diverticular disease of the distal descending colon. CT abd/pelv with contrast: extra-luminal air and small phlegmo, compatible with perforation STAT surgery consultation and NPO orders PT/PTT/INR Continue Zocyn IV continue Flagyl 500mg/100ml IV Q8h Continue IV fluids GI consult: Colonoscopy as an out patient when the diverticulitis resolve. For pain: ketorolac (can be given when the perforation is lower GI), low dose hydromorphone Blood culture: Gram Positive Cocci in clusters (Staph hominis subsp homins) #Asymptomatic acute nephrolothiasis -Nonobstructing left renal calculus measuring 2 mm. -conservative management only. -IV fluids. #Chronic Hypothyroidism. TSH: 6.51 Levothyroxine 175mcg po qd (morning, only with water) #Hepatic steatosis with hepatomegaly. LFT's HbA1c: 5.3 #Thrombocytosis monitor Diet: Full liquid DVT prophylaxis: Lovenox 40 subcutaneous Goals of care discussed with the patient for more than 35 minutes Code Status: Full code PCP: Dr. Aubree Byers. Case discussed with Dr. Mercedes Plan discussed with: Patient Dietary Evaluation Review Comments: Assessment: Patient currently receiving amino acid solution for nutrition support. High risk for malnutrition; EN/GI access status pending. Intervention: Continue amino acid support: Provides 42.5 g protein and 510 kcal daily, meeting needs at 42.5% Protein, 34% energy. If NPO > 7 days and EN/GI not accessible or medically unfeasible: Consider TPN per pharmacy to meet 100% of estimated needs: Protein: 100 g, Energy: ~1500 kcal When EN/GI becomes feasible: Advance to soft diet texture as tolerated. Monitoring & Follow-Up: Daily labs (electrolytes, renal function, glucose). Reassess nutrition plan based on GI status and clinical progress Expected Outcomes/Goals: Recovered GI function, advance to diet, weight management upon D/C Food and Nutrition Intake (Sev: <50% est energy req 5days Fluid Accumulation (N/A): N/A Protein Calorie Malnutrition: N/A Is there a minimum of two crit: No NEAL JAVED RESIDENT Mar 18, 2025 15:52
[2025-03-19 01:00] VITALS: BP 118/76; PULSE 77; RESP 16; TEMP 98.2; O2SAT 96
[2025-03-19 05:00] VITALS: BP 115/81; PULSE 83; RESP 17; TEMP 98.2; O2SAT 97
[2025-03-19 05:58] LABS: Hematocrit 37.2 % (36.0-46.0); Hemoglobin 12.3 g/dL (12.2-16.2); Mean Corpuscular Hemoglobin 29.0 pg (28.0-32.0); Mean Corpuscular Volume 87.5 fL (80.0-100.0); Nucleated Red Blood Cells % 0.1 %
[2025-03-19 06:21] LABS: Magnesium 2.1 mg/dL (1.6-2.6)
[2025-03-19 06:25] LABS: Alanine Aminotransferase 14 U/L (7-40); Albumin 3.6 g/dL (3.2-4.8); Alkaline Phosphatase 83 U/L (46-116); Anion Gap 9 (5-15); BUN/Creatinine Ratio 9.5 (10.0-20.0); Blood Urea Nitrogen 10 mg/dL (9-23); Calcium 9.0 mg/dL (8.7-10.4); Carbon Dioxide 27 mmol/L (20-31); Chloride 106 mmol/L (98-107); Glucose 97 mg/dL (74-106); Potassium 4.0 mmol/L (3.5-5.1); Sodium 142 mmol/L (136-145); Total Protein 6.5 g/dL (5.7-8.2)
[2025-03-19 06:26] LABS: Bilirubin, Total 0.3 mg/dL (0.2-1.0)
[2025-03-19 09:00] VITALS: BP 104/72; PULSE 72; RESP 16; TEMP 97.8; O2SAT 96
[2025-03-19] MEDS ORDERED: METR-344 PO (09:58)
[2025-03-19] MEDS ORDERED: CIPR500T4 PO (09:58)
[2025-03-19 10:22] VITALS: BP 104/72; PULSE 72; RESP 16; TEMP 97.8; O2SAT 96
--- NOTE | 2025-03-19 13:20 | DVHDS2 ---
NEAL JAVED RESIDENT 03/19/25 1320: Discharge Summary Date of Admission Mar 10, 2025 at 14:05 Date of Discharge: Mar 19, 2025 Admitting Diagnosis abdominal pain Labs/Diagnostic Data: Laboratory Results Test 03/19/25 05:31 03/16/25 23:03 03/13/25 18:55 03/13/25 17:09 White Blood Count 9.8 10^3/uL (4.4-10.8) Red Blood Count 4.25 10^6/uL (4.0-5.20) Hemoglobin 12.3 g/dL (12.2-16.2) Hematocrit 37.2 % (36.0-46.0) Mean Corpuscular Volume 87.5 fL (80.0-100.0) Mean Corpuscular Hemoglobin 29.0 pg (28.0-32.0) Mean Corpuscular Hemoglobin Concent 33.1 g/dL (32.0-36.0) Red Cell Distribution Width 15.6 % (11.8-14.3) Platelet Count 477 10^3/uL (140-450) Mean Platelet Volume 7.6 fL (6.9-10.8) Neutrophils (%) (Auto) 63.6 % (37.0-80.0) Lymphocytes (%) (Auto) 25.1 % (10.0-50.0) Monocytes (%) (Auto) 7.4 % (0.0-12.0) Eosinophils (%) (Auto) 3.1 % (0.0-7.0) Basophils (%) (Auto) 0.8 % (0.0-2.0) Neutrophils # (Auto) 6.2 10 ^3/uL (1.6-8.6) Lymphocytes # (Auto) 2.5 10 ^3/uL (0.4-5.4) Monocytes # (Auto) 0.7 10 ^3/uL (0-1.3) Eosinophils # (Auto) 0.3 10 ^3/uL (0-0.8) Basophils # (Auto) 0.1 10 ^3/uL (0-0.2) Nucleated Red Blood Cells 0.1 % Sodium Level 142 mmol/L (136-145) Potassium Level 4.0 mmol/L (3.5-5.1) Chloride Level 106 mmol/L (98-107) Carbon Dioxide Level 27 mmol/L (20-31) Anion Gap 9 (5-15) Blood Urea Nitrogen 10 mg/dL (9-23) Creatinine 1.05 mg/dL (0.550-1.02) Glomerular Filtration Rate Calc 70 mL/min (>90) BUN/Creatinine Ratio 9.5 (10.0-20.0) Serum Glucose 97 mg/dL (74-106) Calcium Level 9.0 mg/dL (8.7-10.4) Phosphorus Level 3.7 mg/dL (2.4-5.1) Magnesium Level 2.1 mg/dL (1.6-2.6) Total Bilirubin 0.3 mg/dL (0.2-1.0) Aspartate Amino Transferase (AST) 14 U/L (13-40) Alanine Aminotransferase (ALT) 14 U/L (7-40) Alkaline Phosphatase 83 U/L (46-116) Total Protein 6.5 g/dL (5.7-8.2) Albumin 3.6 g/dL (3.2-4.8) POC Glucose 92 mg/dl (70-106) Lactic Acid Level 0.9 mmol/L (0.4-2.0) Prothrombin Time 10.9 sec (9.3-11.8) Prothrombin Time INR 1.03 (0.9-1.15) Activated Partial Thromboplast Time 32.5 SEC (24.5-34.5) Test 03/13/25 13:00 03/11/25 10:11 03/11/25 08:47 03/11/25 03:57 Stool Occult Blood Sample #3 Negative (Negative) Stool for White Cells None seen Influenza Type A Antigen Negative (Negative) Influenza Type B Antigen Negative (Negative) SARS-CoV-2 Antigen (Rapid) Negative (NEGATIVE) Urine Opiates Screen Neg (NEGATIVE) Urine Fentanyl Screen Neg (NEGATIVE) Urine Barbiturates Screen Neg (NEGATIVE) Urine Phencyclidine Screen Neg (NEGATIVE) Urine Amphetamines Screen Neg (NEGATIVE) Urine Benzodiazepines Screen Neg (NEGATIVE) Urine Cocaine Screen Neg (NEGATIVE) Urine Cannabinoids Screen Neg (NEGATIVE) Hemoglobin A1c 5.3 % A1C (<5.7) Direct Bilirubin 0.4 mg/dL (<0.3) Triglycerides Level 79 mg/dL (< 150) Cholesterol Level 143 mg/dL (< 200) LDL Cholesterol 83 mg/dL (< 100) HDL Cholesterol 46 mg/dL (40-59) Vitamin B12 Level 299 pg/mL (211-911) Vitamin D 25-Hydroxy 21.6 ng/mL (30.0-100) Thyroid Stimulating Hormone (TSH) 6.51 uIU/mL (0.55-4.78) Test 03/10/25 11:06 Urine Color Light-yellow (Yellow) Urine Clarity Clear (Clear) Urine pH 6.0 (5.0-9.0) Urine Specific Greig 1.011 (1.001-1.035) Urine Protein Negative (Negative) Urine Ketones Negative (Negative) Urine Blood Negative /uL (Negative) Urine Nitrite Negative (Negative) Urine Bilirubin Negative (Negative) Urine Urobilinogen Normal mg/dL (Negative) Urine Leukocyte Esterase Negative /uL (Negative) Urine RBC 1 /hpf (0 - 4) Urine Microscopic WBC 1 /HPF (0-5) Urine Squamous Epithelial Cells Few /hpf (<5) Urine Bacteria Few /hpf (None Seen) Urine Glucose Normal mg/dL (Normal) Urine Test Negative (Negative) Other Laboratory Tests 03/19/25 05:31 Brief Hx & Hospital Course: Ms. Rashida Landeros is a 40-year-old female with a past medical history of hypothyroidism and obesity who presented to [facility] Emergency Department on March 11, 2025, with one day of left lower quadrant abdominal pain that started as 4/10 and worsened to 8/10, sharp in nature, non-radiating, and associated with nausea. She denied fever, chills, vomiting, diarrhea, or constipation. This was her first episode of abdominal pain. A CT scan of the abdomen revealed diverticulitis of the distal descending colon, hepatic steatosis with hepatomegaly, and a non-obstructing 2 mm left renal calculus. Her white blood cell count was 11.3. She was admitted for further evaluation and management. On March 11, the patient was started on intravenous antibiotics including Zosyn and Metronidazole, intravenous fluids, and analgesia. A GI consult was placed, and she tolerated a clear liquid diet. On March 12, she continued to have left lower quadrant pain but reported improvement in nausea. On March 13, her pain worsened to 8/10 and her white blood cell count continued to trend upward despite antibiotics. A repeat CT abdomen and pelvis showed persistent inflammatory changes at the descending colon with new large-volume extra-luminal air and a small phlegmon, as well as air extending into the left upper abdomen and posterior mediastinum, consistent with diverticulitis with perforation. A stat surgical consult was placed, and the patient was made NPO. The findings were discussed with the patient and her family. On March 14, the patient remained clinically stable, afebrile, and non-peritonitic. Surgery recommended conservative management with continued intravenous antibiotics and pain control. On March 15, mild guarding was noted without rigidity, and the surgeon advised continued conservative management and close monitoring. On March 16, the patient reported feeling better, was afebrile with stable vital signs, and had multiple bowel movements without bleeding. Plans were made to start a clear liquid diet the following day. On March 17, she tolerated clear liquids well and ambulated without difficulty. On March 18, she continued to improve, tolerated a full liquid diet, and was ambulating and having regular bowel movements. Plans were made to advance her diet to soft bland foods and discharge if tolerated. On evaluation today, she states dhe is well, pain is manageable. Her vitals have remained stable for discharge home, follow up visit in discharge clinic. All medications and recommendations were thoroughly explained and the patient states she understands and agrees. Detailed discussion held with patient at bedside were all questions were answered and concerns were addressed. Examination General Appearance: Alert, Oriented X3, Cooperative. Mild distress. HEENT: Atraumatic, PERRLA, EOMI, Mucous membrane moist/pink Respiratory: Clear to auscultation, Normal air movement Cardiovascular: Regular rate, Normal S1, Normal S2, No murmurs, no chest wall tenderness Abdominal: Protuberant abdomen, soft. There is tenderness to deep palpation on the left lower quadrant. Increasing abdominal pain in LUQ and LLQ, epigastric tenderness, mild guarding, no rigidity. bowel sounds present all 4 quadrants. Extremities: No clubbing, No cyanosis, No edema, Normal pulses, No tenderness/swelling Skin: No rashes, No breakdown, No significant lesion Neuro: Normal gait, Normal speech, Strength at 5/5 X4 ext, Normal tone, Sensation intact, Cranial nerves 3-12 NL, Reflexes 2+ Psych/Mental Status: Mental status NL, Mood NL Case discussed with Dr. Mercedes Operations or Procedures PATIENT: RASHIDA LANDEROS ACCT: [id number] UNIT: [id number] : 1985 LOC: [facility] ROOM / BED: 0287 / A AGE / SEX: 40 / F ADM STATUS: ADM IN SERVICE 0923 ORDERING PHYSICIAN: ROBERT GALLARDO RESIDENT PROCEDURE(s): ABPLC - CT ABD PELVIS W CON-ORAL & IV REASON: Abdominal pain, diverticulitis, possible abscess ORDER NUMBER(s): [id number], ACCESSION NUMBER(s): [id number] EXAM DESCRIPTION: CT CT ABD PELVIS W CON-ORAL IV CLINICAL HISTORY: Abdominal pain, diverticulitis, possible abscess COMPARISON: None TECHNIQUE: CT abdomen and pelvis with IV contrast was performed. Coronal and sagittal MPR images were generated. CTDI, DLP = 25.74 / 1721.16 Dose reduction technique with one or more of the following methods was performed: Automated exposure control, adjustment of the mA and/or kV according to patient size, use of iterative reconstruction technique FINDINGS: Lower chest: Elevated right hemidiaphragm with right basilar subsegmental atelectasis. Small amount of pneumomediastinum in the posterior chest. Liver: Diffusely decreased in attenuation. . Biliary: Status post cholecystectomy. No biliary ductal dilatation. Pancreas: No fat stranding or focal lesion. Spleen: Normal in size.. Adrenal glands: No nodularity. Kidneys: Symmetric enhancement. No hydroureteronephrosis. Punctate left renal calculus. Bladder: Underdistended, limiting evaluation. Reproductive organs: Normal. Bowel: There is persistent pericolonic inflammatory changes and mild wall thickening of the descending colon. Enteric contrast within the stomach and small bowel without evidence of enteric leak from these regions. There is no enteric contrast in the large bowel. Peritoneum: Large amount of free air in the left upper abdomen around the stomach, pancreas, and left retroperitoneum. There is new extraluminal air in the left lower quadrant adjacent to the descending colon with a small amount of fluid in the region. Vessels: Normal caliber abdominal aorta. Lymph nodes: No suspicious lymph nodes. Soft tissues: Unremarkable. . Osseous structures: No acute fracture or subluxation. No suspicious osseous lesions. Degenerative changes of the visualized thoracolumbar spine. IMPRESSION: 1. Persistent inflammatory changes at the descending colon with new surrounding large volume extra-luminal air and small phlegmon. There is also air also extending into the left upper abdomen and posterior mediastinum. These findings are consistent with diverticulitis with perforation. Recommend surgery consulatation. 2. Hepatic steatosis 3. Punctate left renal calculus. No hydronephrosis. Critical findings discussed with Dr. Gaona by Dr. Flores via phone on 03/13/2025 01:21 PM. ------ PATIENT: RASHIDA LANDEROS ACCT: [id number] UNIT: [id number] : 1985 LOC: ER ROOM / BED: / AGE / SEX: 40 / F ADM STATUS: REG ER SERVICE 0844 ORDERING PHYSICIAN: CARLOS GALLEGO MD PROCEDURE(s): ABPL - CT AB PEL WO CON-NO ORAL OR IV REASON: llq pain ORDER NUMBER(s): [id number], ACCESSION NUMBER(s): [id number] Indication: llq pain Technique: CT axial images of the abdomen and pelvis are obtained without contrast. Coronal and sagittal reformats were obtained. Radiation Dose Information: CTDI volume is 27 mGy. Dose-length product is 1626 mGy*cm Comparison: None FINDINGS: There is limited interpretation of the abdomen and pelvis without administration of intravenous contrast. Lung bases demonstrate atelectasis. No pleural effusion. Adrenal glands, spleen, pancreas unremarkable in shape. Hepatic steatosis. Hepatomegaly. Cholecystectomy. No hydronephrosis. Nonobstructing left renal calculus measuring 2 mm. Stomach partially distended. Small bowel loops are normal in caliber. Colonic diverticular disease. Bowel wall thickening with surrounding inflammatory stranding involving the distal descending colon. Normal appendix. Bladder partially distended. No free pelvic fluid. No inguinal lymphadenopathy. No aggressive osseous process. Moderate lumbar degenerative disc disease at L4-5 and L5-S1. Moderate lumbar facet hypertrophic changes IMPRESSION: Limited evaluation without contrast. Diverticulitis of the distal descending colon. Hepatic steatosis, hepatomegaly. Nonobstructing left renal calculus. Other findings as described. - ----- [facility] [address] [address] Ginny Monge M.D., Laboratory Ram Car Operator - PATIENT: RASHIDA LANDEROS ACCT: [id number] LOC: [facility] U: [id number] AGE/SX: 40/F ROOM: 0287 RE03/10/[address]: NEAL JAVED RESIDENT : 1985 BED: A DIS: STATUS: ADM IN TLOC: - SPEC #: [id number] CONNER: 03/13/25-1299 STATUS: COMP REQ #: [id number] RECD: 03/13/25-[address] [facility] [address]: ROBERT GALLARDO RESIDENT SOURCE: STOOL ENTR: 03/13/25-[address] [facility] [address]: WOLFGANG CAMILO MD [facility]: WALDO CAMILO FERDINAND MD SIDDIQUI, IMRAN M MD ORDERED: [facility] COMMENTS: Has specimen been collected/obtained? Y - Procedure Result - Stool Culture Final Report No Normal Enteric Sophia Moderate growth: Gram Positive Sophia No Campylobacter antigen detected No E. coli 0157 isolated No Salmonella or Shigella species isolated Shiga Toxin 1&2 Final Shiga Toxin 1 Negative (-) Shiga Toxin 2 Negative (-) Consistency SOFT [facility] [address] [place], [place] [address] Ginny Monge M.D., Laboratory Ram Car Operator - PATIENT: RASHIDA LANDEROS ACCT: [id number] LOC: [facility] U: [id number] AGE/SX: 40/F ROOM: [facility] RE03/10/[address]: NEAL JAVED RESIDENT : 1985 BED: A DIS: STATUS: ADM IN TLOC: - SPEC #: [id number] CONNER: 03/11/25 STATUS: COMP REQ #: [id number] RECD: 03/11/[address]: JEN BELCHER MD SOURCE: BLOOD ENTR: 03/11/[address]: ROBERT GALLARDO RESIDENT SPDESC: WOLFGANG CAMILO MD, RADHA ORDERED: GOLDENULT COMMENTS: PT WANTS TO BE DRAWN ONCE SHE MOVES TO HER ROOM @ 1818-CO - Procedure Result - Blood Culture Final NO GROWTH AFTER 5 DAYS OF INCUBATION. NO GROWTH AFTER 5 DAYS OF INCUBATION. [facility] [address] [address] Ginny Monge M.D., Laboratory Ram Car Operator - PATIENT: RASHIDA LANDEROS ACCT: [id number] LOC: [facility] U: [id number] AGE/SX: 40/F ROOM: 0287 RE03/10/[address]: NEAL JAVED RESIDENT : 1985 BED: A DIS: STATUS: ADM IN TLOC: - SPEC #: [id number] CONNER: 03/11/25 STATUS: COMP REQ #: [id number] RECD: 03/11/[address]: JEN BELCHER MD SOURCE: BLOOD ENTR: 03/11/25-[address]: ROBERT GALLARDO RESIDENT SPDESC: WOLFGANG CAMILO MD, RADHA ORDERED: BCULT COMMENTS: PT WANTS TO BE DRAWN ONCE SHE MOVES TO HER ROOM @ 1818-CO - Procedure Result - Blood Culture Final NO GROWTH AFTER 5 DAYS OF INCUBATION. NO GROWTH AFTER 5 DAYS OF INCUBATION. - ----- - PATIENT: RASHIDA LANDEROS ACCT: [id number] LOC: [facility] U: [id number] AGE/SX: 40/F ROOM: 0287 RE03/10/[address]: ROBERT GALLARDO RESIDENT : 1985 BED: A DIS: STATUS: ADM IN TLOC: - SPEC #: [id number] CONNER: 03/10/25 STATUS: COMP REQ #: [id number] RECD: 03/10/25-[address]: CARLOS GALLEGO MD SOURCE: BLOOD ENTR: 03/10/25-[address]: PHYSICIAN,NON S SPDESC: ORDERED: BCULT - Procedure Result - Blood Culture Final Report Positive Blood culture Aerobic bottle & Anaerobic bottle Time to detect: 18 Hr RESULT Gram Positive Cocci in clusters Organism 1 Staph hominis subsp homins QUANTITATION GROWTH OF: GRAM STAIN: Called results to:CONSTANCE GALVEZ RN at 03/11/25,1125 by LB-PD. Verbal readback confirmed. MAT M.I.C. RX --------- --- Amoxicillin/ K Clavulanate <=4/2 S Ampicillin/Sulbactam <=8/4 S Cefazolin <=4 S Ciprofloxacin <=1 S Clindamycin <=0.5 S Daptomycin <=0.5 S Erythromycin <=0.5 S Levofloxacin <=1 S Linezolid <=1 S Oxacillin <=0.25 S Rifampin <=1 S Tetracycline <=4 S Trimethoprim/Sulfamethoxazole <=0.5/9.5 S Vancomycin 1 S CONTINUED ON NEXT PAGE RUN DATE: 03/14/25 PAGE 2 RUN TIME: 948 [facility] [address] [address] Ginny Monge M.D., Laboratory Ram Car Operator - SPEC: [id number] PATIENT: RASHIDA LANDEROS [id number] (Continued) - - Procedure Result - Blood Culture Final (continued) *BRUCE value in ug/ml [facility] [address] [address] Ginny Monge M.D., Laboratory Ram Car Operator - PATIENT: RASHIDA LANDEROS ACCT: [id number] LOC: [facility] U: [id number] AGE/SX: 40/F ROOM: 0287 RE03/10/[address]: NEAL JAVED RESIDENT : 1985 BED: A DIS: STATUS: ADM IN TLOC: - SPEC #: [id number] CONNER: 03/10/25 STATUS: DACIA REQ #: [id number] RECD: 03/10/[address]: CARLOS GALLEGO MD SOURCE: BLOOD ENTR: 03/10/25-[address]: PHYSICIANMORGANC: ORDERED: BCULT - Procedure Result - Blood Culture Final NO GROWTH AFTER 5 DAYS OF INCUBATION. NO GROWTH AFTER 5 DAYS OF INCUBATION. - ----- Condition at Discharge: Stable Final Diagnosis/Problems List acute perforated diverticulitis Discharge Disposition: Home Discharge Instruct/Medications Diet: See Comment Diet comment: liquid diet Activity: Light activity Follow Up/Referral: f/u with pcp in 7 days Medications: see prescriptions Scheduled Ciprofloxacin Hcl (Ciprofloxacin Hcl), 1 TAB PO BID Levothyroxine Sodium (Synthroid Tablet), 175 MCG PO DAILY, (Reported) Metronidazole (Flagyl), 1 TAB PO TID Tirzepatide (Zepbound), 5 MG SC DAILY, (Reported) Discharge Statement: "Patient was advised to return to the ER or call 911 if any headaches, dizziness, shortness of breath, chest pain, abdominal pain, bleeding, fevers, or worsening of medical condition. Patient was counseled about treatment plan, medications, possible side effects, patientverbalized understanding. All questions were answered to the best of my ability. This discharge took greater then 30 minutes in planning, reviewing documentation, counseling the patient, and discussing with other team members." ASSESSMENT ASSESSMENT Assessment acute perforated diverticulitis Date of Service: Mar 19, 2025 Billing Provider: MUNIR MERCEDES MD Common Visit Codes: 67175-HYE/OBS DISCH DAY >30min TATI GASPAR RESIDENT 03/19/25 1513: Discharge Summary Discharge Instruct/Medications Scheduled Ciprofloxacin Hcl (Ciprofloxacin Hcl), 1 TAB PO BID Levothyroxine Sodium (Synthroid Tablet), 175 MCG PO DAILY, (Reported) Metronidazole (Flagyl), 1 TAB PO TID Tirzepatide (Zepbound), 5 MG SC DAILY, (Reported) NEAL JAVED RESIDENT Mar 19, 2025 13:20 TATI GASPAR RESIDENT Mar 19, 2025 15:13
== END 2025-03-19 11:30 | disposition home or self-care (01) | DRG 872 ==
LOC: ER 08:17 → OVERFLOW 14:05 → WEST WING 14:09
PROVIDERS: ADMIT Internal Medicine Geriatric Medicine; ATTEND Internal Medicine Geriatric Medicine
DX: A41.9 Sepsis, unspecified organism (principal); K57.20 Diverticulitis of large intestine with perforation and abscess without bleeding; Z68.44 Body mass index [BMI] 60.0-69.9, adult; K76.0 Fatty (change of) liver, not elsewhere classified; E03.9 Hypothyroidism, unspecified; N20.2 Calculus of kidney with calculus of ureter; Z20.822 Contact with and (suspected) exposure to COVID-19; R16.0 Hepatomegaly, not elsewhere classified; E66.01 Morbid (severe) obesity due to excess calories; I48.91 Unspecified atrial fibrillation; E55.9 Vitamin D deficiency, unspecified; Z90.49 Acquired absence of other specified parts of digestive tract; Z98.51 Tubal ligation status; Z83.3 Family history of diabetes mellitus
CPT/HCPCS: 36415; 74176; 74177; 80048; 80053; 80061; 80076; 80307; 81001; 81025; 82270; 82306; 82607; 82962; 83036; 83605; 83735; 84100; 84443; 85025; 85048; 85610; 85730; 87040; 87045; 87077; 87186; 87426; 87427; 87804; 96365; 96375; G0378; J1885; J2543; J3490